=== PATIENT | male | born 1965 | race Caucasian/White ===

== ENCOUNTER 2016-11-22 14:41 | Emergency (ER) | payer OTHER ==
[2016-11-22 14:56] VITALS: BP 136/102
[2016-11-22] MEDS ORDERED: Sodium Chloride 0.9% 10 ML Syringe FLUSH PRN (15:11)
[2016-11-22] MEDS ORDERED: methylPREDNISolone Sodium Succinate 125 MG/2 ML SDV IVPUSH ONE (15:15)
[2016-11-22] MEDS ORDERED: Albuterol/Ipratropium 3.0-0.5 MG/3 ML Neb Soln NEB ONE (15:15)
[2016-11-22] MEDS ORDERED: Iopamidol 755 Mg/ML 100 ML Bottle IVPUSH ONE (15:26)
[2016-11-22] MEDS ORDERED: Sodium Chloride 0.9% 10 ML Syringe FLUSH ONE (15:26)
[2016-11-22] MEDS ORDERED: Sodium Chloride 0.9% 100 ML IV SCH (15:30)
--- NOTE | 2016-11-22 16:08 | EDM.PDOC ---
ED HPI GENERAL MEDICAL PROBLEM - General Chief Complaint: Respiratory Problem Stated Complaint[facility] Time Seen by Provider: 11/22/16 14:59 Source of Information: Reports: Patient, Provider History Limitations: Reports: No Limitations - History of Present Illness INITIAL COMMENTS - FREE TEXT/NARRATIVE: [facility] because he has had increased shortness of breath for the past month. It is worse with exertion. He has a productive cough at times of whitish sputum. He denies any chest pain and he has no edema or pain in his legs. He has no fever. He does smoke but he is down to 1 cigarette per day because of the shortness of breath. He does have COPD and CHF. He is on some lasix. Onset: Gradual Duration: Week(s): (4) Severity: Moderate Improves with: Reports: None Worsens with: Reports: Movement Context: Reports: Activity (makes it worse) Associated Symptoms: Reports: Cough, cough w sputum, Shortness of Breath. Denies: Chest Pain, Fever/Chills, Nausea/Vomiting - Related Data Allergies Allergy/AdvReac Type Severity Reaction Status Date / Time codeine Allergy Unknown Hyperactivi Verified 11/22/16 14:56 ty shellfish derived Allergy Unknown Hives Verified 11/22/16 14:56 Home Meds: Home Meds Carvedilol [Coreg] 12.5 mg PO BID 05/03/15 [History] Potassium Chloride [Klor-Con M20] 20 meq PO DAILY 05/03/15 [History] Albuterol [Proventil HFA] 2 puff INH Q4H #1 inhaler 05/14/15 [Rx] Furosemide [Lasix] 20 mg PO DAILY #30 tablet 05/14/15 [Rx] Prednisone [IJD: predniSONE] 40 mg PO WITHBREAKFAST #10 tab 11/22/16 [Rx] Past Medical History Respiratory History: Reports: Asthma - Past Surgical History Other GI Surgeries/Procedures: 6 inches of colon removed in 2013 Social & Family History - Tobacco Use Smoking Status *Q: Light Tobacco Smoker Years of Tobacco use: 40 Packs/Tins Daily: 0.1 Used Tobacco, but Quit: No Month Tobacco Last Used: 04/2014 Second Hand Smoke Exposure: No - Caffeine Use Caffeine Use: Reports: Soda - Alcohol Use Days Per Week of Alcohol Use: 0 Number of Drinks Per Day: 3 Total Drinks Per Week: 0 - Recreational Drug Use Recreational Drug Use: No ED ROS GENERAL - Review of Systems Review Of Systems: See Below Constitutional: Reports: No Symptoms HEENT: Reports: No Symptoms Respiratory: Reports: Shortness of Breath, Cough, Sputum Cardiovascular: Reports: No Symptoms Endocrine: Reports: No Symptoms GI/Abdominal: Reports: No Symptoms : Reports: No Symptoms Musculoskeletal: Reports: No Symptoms Skin: Reports: No Symptoms ED EXAM, GENERAL - Physical Exam Exam: See Below Exam Limited By: No Limitations General Appearance: Alert, No Apparent Distress Ears: Normal External Exam Nose: Normal Inspection Head: Atraumatic, Normocephalic Neck: Normal Inspection Respiratory/Chest: No Respiratory Distress, Decreased Breath Sounds Cardiovascular: Regular Rate, Rhythm, No Edema, No Murmur GI/Abdominal: Soft, Non-Tender, No Organomegaly, No Mass Back Exam: Normal Inspection Extremities: Normal Inspection EKG INTERPRETATION EKG Date: 11/22/16 Time: 15:32 Rhythm: NSR Rate (beats/min): 92 [place]: normal P-wave: present QRS: LBBB ST-T: normal QT: normal Course - Vital Signs Last Recorded V/S: Last Vital Signs Temp 97 F 11/22/16 14:49 Pulse 102 H 11/22/16 14:49 Resp 17 11/22/16 14:49 BP 136/102 H 11/22/16 14:49 Pulse Ox 99 11/22/16 15:31 - Orders/Labs/Meds Orders: Active Orders 24 hr Category Date Time Status Cardiac Monitoring [RC] . DIRECTED Care 11/22/16 15:11 Active EKG Documentation Completion [RC] STAT Care 11/22/16 15:13 Active Oxygen Therapy [RC] PRN Care 11/22/16 15:12 Active Peripheral IV Care [RC] . DIRECTED Care 11/22/16 15:13 Active RT Aerosol Therapy [RC] ASDIRECTED Care 11/22/16 15:15 Active Sodium Chloride 0.9% [Normal Saline] 1,000 ml Med 11/22/16 16:15 Active IV ASDIRECTED Sodium Chloride 0.9% [Normal Saline] 100 ml Med 11/22/16 15:30 Active IV ASDIRECTED Sodium Chloride 0.9% [Saline Flush] Med 11/22/16 15:11 Active 10 ml FLUSH ASDIRECTED PRN Peripheral IV Insertion Adult [OM.PC] Stat Oth 11/22/16 15:11 Ordered Medication Orders Sodium Chloride (Normal Saline) 100 mls @ 60 mls/hr IV ASDIRECTED REGINE Last Admin: 11/22/16 15:45 Dose: 60 mls/hr Sodium Chloride (Normal Saline) 1,000 mls @ 150 mls/hr IV ASDIRECTED REGINE Sodium Chloride (Saline Flush) 10 ml FLUSH ASDIRECTED PRN PRN Reason: Keep Vein Open Last Admin: 11/22/16 15:36 Dose: 10 ml Labs: Laboratory Tests 11/22/16 11/22/16 11/22/16 Range/Units 15:30 15:30 15:50 WBC 7.99 (4.23-9.07) K/mm3 RBC 4.36 L (4.63-6.08) M/mm3 Hgb 12.9 L (13.7-17.5) gm/L Hct 39.5 L (40.1-51.0) % MCV 90.6 (79.0-92.2) fl MCH 29.6 (25.7-32.2) pg MCHC 32.7 (32.2-35.5) g/dl RDW Std Deviation 48.7 H (35.1-43.9) fL Plt Count 344 H (163-337) K/mm3 MPV 9.0 L (9.4-12.3) fl Neut % (Auto) 68.4 H (34.0-67.9) % Lymph % (Auto) 19.4 L (21.8-53.1) % [place] % (Auto) 9.5 (5.3-12.2) % Eos % (Auto) 2.0 (0.8-7.0) Baso % (Auto) 0.6 (0.1-1.2) % Neut # (Auto) 5.46 H (1.78-5.38) K/mm3 Lymph # (Auto) 1.55 (1.32-3.57) K/mm3 [place] # (Auto) 0.76 (0.30-0.82) K/mm3 Eos # (Auto) 0.16 (0.04-0.54) K/mm3 Baso # (Auto) 0.05 (0.01-0.08) K/mm3 Manual Slide Review Abnormal smear Sodium 136 (136-145) mEq/L Potassium 3.0 L (3.5-5.1) mEq/L Chloride 98 (98-107) mEq/L Carbon Dioxide 26 (21-32) mEq/L Anion Gap 15.0 (5-15) BUN 31 H (7-18) mg/dL Creatinine 1.7 H (0.7-1.3) mg/dL Est Cr Clr Drug Dosing 48.06 mL/min Estimated GFR (MDRD) 43 (>60) mL/min BUN/Creatinine Ratio 18.2 H (14-18) Glucose 104 (74-106) mg/dL Calcium 8.6 (8.5-10.1) mg/dL Total Bilirubin 1.1 H (0.2-1.0) mg/dL AST 20 (15-37) U/L ALT 19 (16-63) U/L Alkaline Phosphatase 62 (46-116) U/L Troponin I 0.076 H* (0.00-0.056) ng/mL B-Natriuretic Peptide 1916 H (0-100) pg/mL Total Protein 7.6 (6.4-8.2) g/dl Albumin 3.8 (3.4-5.0) g/dl Globulin 3.8 gm/dL Albumin/Globulin Ratio 1.0 (1-2) Meds: Medications Generic Name Dose Route Start Last Admin Trade Name Freq PRN Reason Stop Dose Admin Sodium Chloride 100 mls @ 60 mls/hr 11/22/16 15:30 11/22/16 15:45 Normal Saline IV 60 mls/hr ASDIRECTED REGINE Administration Sodium Chloride 1,000 mls @ 150 mls/hr 11/22/16 16:15 Normal Saline IV ASDIRECTED REGINE Sodium Chloride 10 ml 11/22/16 15:11 11/22/16 15:36 Saline Flush FLUSH 10 ml ASDIRECTED PRN Administration Keep Vein Open Discontinued Medications Generic Name Dose Route Start Last Admin Trade Name Freq PRN Reason Stop Dose Admin Albuterol/Ipratropium 3 ml 11/22/16 15:15 11/22/16 15:30 Duoneb 3.0-0.5 Mg/3 Ml NEB 11/22/16 15:16 3 ml ONETIME ONE Administration Iopamidol 100 ml 05/15/17 15:26 11/22/16 15:45 Isovue-370 (76%) IVPUSH 11/22/16 15:27 100 ml ONETIME ONE Administration Methylprednisolone Sodium Succinate 125 mg 11/22/16 15:15 11/22/16 15:36 Solu-Medrol IVPUSH 11/22/16 15:16 125 mg ONETIME ONE Administration Sodium Chloride 10 ml 11/22/16 15:26 11/22/16 15:45 Saline Flush FLUSH 11/22/16 15:27 10 ml ONETIME ONE Administration - Re-Assessments/Exams Free Text/Narrative Re-Assessment/Exam: 11/22/16 17:04 I ordered an IV saline lock, O2 as needed, EKG, CT of his chest, labs, solu- medrol 125mg IV, and duoneb. His EKG shows a LBBB. That is consistent with the [facility] sent from the [facility]. His CBC is negative. His K was a little low at 3. His creatinine was elevated at 1.7. His troponin was elevated at 0.076 with an elevated BNP of 1916. His chest CT shows cardiomegaly, hazy ground glass appearance in both lungs possibly due to mild pulmonary vascular congestion. No findings of pulmonary embolism. Diffuse subpleural blebs on both sides of the chest which puts the patient at risk for future pneumothorax. His creatinine was high so I gave him a 500ml bolus to protect his kidneys. I called Dr Maher the elevator installer apprentice at [place] and talked with him. He was able to look up the patient. He says his EF is about 30% and we both agreed the elevated troponin was due to his CHF. The patient feels much better after the treatment and steroids. He is taking K at home for hypokalemia. Departure - Departure Time of Disposition: 17:15 Disposition: Home, Self-Care 01 Condition: good Clinical Impression: COPD exacerbation - Discharge Information Prescriptions: Prednisone [IJD: predniSONE] 40 mg PO WITHBREAKFAST #10 tab Referrals: Erika Frey DO [Primary Care Provider] - 1 Week Forms: ED Department Discharge Additional Instructions: Keep taking your potassium pills and using your inhaler. Take the prednisone daily for 5 days. Follow up with your doctor [facility] the [facility] and [facility]. Please return if you are worse. - My Orders Last 24 Hours: My Active Orders 11/22/16 15:11 Cardiac Monitoring [RC] . DIRECTED Sodium Chloride 0.9% [Saline Flush] 10 ml FLUSH ASDIRECTED PRN Peripheral IV Insertion Adult [OM.PC] Stat 11/22/16 15:12 Oxygen Therapy [RC] PRN 11/22/16 15:13 EKG Documentation Completion [RC] STAT Peripheral IV Care [RC] . DIRECTED 11/22/16 15:15 RT Aerosol Therapy [RC] ASDIRECTED 11/22/16 15:30 Sodium Chloride 0.9% [Normal Saline] 100 ml IV ASDIRECTED 11/22/16 16:15 Sodium Chloride 0.9% [Normal Saline] 1,000 ml IV ASDIRECTED - Assessment/Plan Last 24 Hours: My Active Orders 11/22/16 15:11 Cardiac Monitoring [RC] . DIRECTED Sodium Chloride 0.9% [Saline Flush] 10 ml FLUSH ASDIRECTED PRN Peripheral IV Insertion Adult [OM.PC] Stat 11/22/16 15:12 Oxygen Therapy [RC] PRN 11/22/16 15:13 EKG Documentation Completion [RC] STAT Peripheral IV Care [RC] . DIRECTED 11/22/16 15:15 RT Aerosol Therapy [RC] ASDIRECTED 11/22/16 15:30 Sodium Chloride 0.9% [Normal Saline] 100 ml IV ASDIRECTED 11/22/16 16:15 Sodium Chloride 0.9% [Normal Saline] 1,000 ml IV ASDIRECTED
[2016-11-22] MEDS ORDERED: Sodium Chloride 0.9% 1,000 ML IV SCH (16:15)
--- NOTE | 2016-11-22 16:27 | CT ---
CT chest Technique: Multiple axial sections through the chest were obtained. Intravenous contrast was utilized. Study has been performed as a pulmonary angiogram protocol. Findings: Pulmonary arteries are well-opacified. No filling defects are seen to indicate pulmonary embolism. Heart is enlarged. Mediastinum and hilar regions show no adenopathy or mass. Small portion of the visualized upper abdominal structures appear within normal limits. Subpleural blebs are seen within the right lung base. Subpleural blebs are seen diffusely within both upper lungs. Groundglass appearance is seen possibly representing mild pulmonary vascular congestion. Lungs otherwise are clear. Bone window settings shows mild degenerative endplate spurring within the spine. No pleural effusions or pneumothorax is seen. Impression: 1. Cardiomegaly. Hazy groundglass appearance in both lungs possibly due to mild pulmonary vascular congestion. 2. No findings of pulmonary embolism. 3. Diffuse subpleural blebs on both sides of the chest which puts the patient at risk for future pneumothorax. 4. No additional abnormality is appreciated. Diagnostic code #3
== END 2016-11-22 17:40 | disposition home or self-care (01) ==
LOC: JD.ED 14:41
DX: J44.1 Chronic obstructive pulmonary disease with (acute) exacerbation (principal); J45.909 Unspecified asthma, uncomplicated; F17.210 Nicotine dependence, cigarettes, uncomplicated; Z88.5 Allergy status to narcotic agent; Z91.013 Allergy to seafood; Z79.899 Other long term (current) drug therapy
CPT/HCPCS: 36415; 71275; 80053; 83880; 84484; 85025; 93005; 94664; 96361; 96374; 99285; J2930; J7030; J7040; J7050; Q9967; 99284

== ENCOUNTER 2020-08-11 13:03 | Inpatient (IN) | payer OTHER ==
[2020-08-11] MEDS: Sodium Chloride 0.9% 10 ML Syringe FLUSH PRN ×2 (13:20→13:56)
[2020-08-11] MEDS ORDERED: Sodium Chloride 0.9% 1,000 ML IV STA (13:24)
[2020-08-11] MEDS ORDERED: Ondansetron 4 MG/2 ML SDV IVPUSH ONE (13:24)
[2020-08-11] MEDS ORDERED: Sodium Chloride 0.9% 10 ML Syringe FLUSH PRN (13:34)
[2020-08-11] MEDS ORDERED: Iopamidol 612 MG/ML 100 ML Bottle IVPUSH ONE (13:34)
[2020-08-11] MEDS ORDERED: Sodium Chloride 0.9% 500 ML IV STA (14:09)
--- NOTE | 2020-08-11 14:16 | CT ---
CT abdomen and pelvis Technique: Multiple axial sections were obtained from above the dome of the diaphragm inferiorly to the pubic symphysis. Intravenous contrast was utilized. Delayed images were also obtained through the abdomen and pelvis. Reconstructed coronal and sagittal images were obtained. Comparison: No prior CT abdomen or pelvis exam is available. Findings: Heart is enlarged. Visualized lung bases show several small subpleural air cysts along the medial right lower lung. Liver contains no focal abnormality. Spleen size is normal. Adrenal glands show no discrete nodule. Gallbladder contains no calcified gallstones. Kidneys show no hydronephrosis or mass. There is slight inflammatory change being seen around the kidneys particularly on the left side. Uncertain if this is acute or old. Pancreas is within normal limits. Abdominal aorta shows atherosclerotic calcification with no aneurysm. No retroperitoneal adenopathy or mesenteric abnormalities are seen. No pelvic mass or adenopathy is identified. Appendix is seen which is normal in size. Minimal scattered diverticuli are seen with no inflammatory change of diverticulitis. There appears to be resection clips within the sigmoid colon Delayed images show contrast excretion from both kidneys into nondilated ureters and bladder. Bone window settings were reviewed which show severe disc space narrowing with posterior osteophytes at L5-S1. No acute osseous finding is appreciated. Impression: 1. Inflammatory change around both kidneys. Uncertain if this is old or acute. Please rule out any findings of infection within the kidneys. 2. Heart is enlarged. 3. Other findings as noted above which are believed to be incidental. Diagnostic code #3
--- NOTE | 2020-08-11 14:41 | EDM.PDOC ---
ED HPI GENERAL MEDICAL PROBLEM - General Chief Complaint: Abdominal Pain Stated Complaint: ABDOMINAL PAIN/VOMITING Time Seen by Provider: 08/11/20 13:11 Source of Information: Reports: Patient, RN Notes Reviewed History Limitations: Reports: No Limitations - History of Present Illness INITIAL COMMENTS - FREE TEXT/NARRATIVE: Patient is a 54 year old male presenting to the ER with c/o a 1 week hx of nausea, vomiting, diarrhea and abdominal cramping. He has been able to keep down very little fluid without vomiting. He states that has is having 1-2 episodes of diarrhea per hour. He c/o intermittent generalized abdominal cramping, mostly with intake of fluids. He also feels SOB. He denies fever, chills, chest pain, or back pain over the last week. He has not been able to take his daily medications including his Lasix 40mg BID and heart medications for that last week d/t the vomiting. Abdomen Pain Score (Numeric/FACES): 6 - Related Data Allergies Allergy/AdvReac Type Severity Reaction Status Date / Time shellfish derived Allergy Unknown Hives Verified 08/11/20 18:12 codeine AdvReac Unknown Hyperactivi Verified 08/11/20 18:12 ty Home Meds: Home Meds Albuterol Sulfate [Proair Hfa] 2 puff INH TID PRN 07/02/18 [History] Furosemide [Lasix] 40 mg PO BID 07/02/18 [History] Lisinopril 5 mg PO BID 07/02/18 [History] Potassium Chloride [K-Tab ER] 20 meq PO DAILY 07/02/18 [History] atorvaSTATin [Lipitor] 10 mg PO BEDTIME 07/02/18 [History] Digoxin 250 mcg PO DAILY 08/11/20 [History] Metoprolol Succinate 25 mg PO BID 08/11/20 [History] Past Medical History Cardiovascular History: Reports: Automatic Implantable Cardioverter Defibrillators, Heart Failure, SOB on Exertion Respiratory History: Reports: Asthma, COPD, SOB - Past Surgical History Other GI Surgeries/Procedures: 6 inches of colon removed in 2013 Social & Family History - Tobacco Use Tobacco Use Status *Q: Current Every Day Tobacco User Years of Tobacco use: 40 Packs/Tins Daily: 0.1 - Caffeine Use Caffeine Use: Reports: None - Recreational Drug Use Recreational Drug Use: No ED ROS GENERAL - Review of Systems Review Of Systems: See Below Constitutional: Reports: Chills, Fatigue, Decreased Appetite. Denies: Fever HEENT: Reports: No Symptoms Respiratory: Reports: Shortness of Breath. Denies: Cough Cardiovascular: Reports: No Symptoms. Denies: Chest Pain, Lightheadedness Endocrine: Reports: No Symptoms GI/Abdominal: Reports: Abdominal Pain, Diarrhea, Decreased Appetite, Nausea, Vomiting : Reports: No Symptoms Musculoskeletal: Reports: No Symptoms Skin: Reports: No Symptoms Neurological: Reports: No Symptoms Psychiatric: Reports: No Symptoms Hematologic/Lymphatic: Reports: No Symptoms Immunologic: Reports: No Symptoms ED EXAM, GI/ABD - Physical Exam Exam: See Below Exam Limited By: No Limitations General Appearance: Alert, WD/WN, Mild Distress Respiratory/Chest: No Respiratory Distress, Normal Breath Sounds, No Accessory Muscle Use, Chest Non-Tender, Respiratory Distress, Rales (bilaterally. More significant throughout the left). No: Wheezing Cardiovascular: Normal Peripheral Pulses, Regular Rate, Rhythm, No Edema, No Gallop, No JVD, No Murmur, No Rub GI/Abdominal Exam: Normal Bowel Sounds, Soft, No Organomegaly, No Distention, No Abnormal Bruit, No Mass, Pelvis Stable, Tender (mild generalized tenderness) Neurological: Alert, Oriented, CN II-XII Intact, Normal Cognition, Normal Gait, Normal Reflexes, No Motor/Sensory Deficits Psychiatric: Normal Affect, Normal Mood Skin Exam: Warm, Dry, Intact, Normal Color, No Rash #1 Interpretation EKG Date: 08/11/20 Time: 13:33 Rhythm: NSR Rate (Beats/Min): 107 [place]: Normal P-Wave: Present QRS: LBBB ST-T: Normal QT: Normal Comparison: No Change Course - Vital Signs Last Recorded V/S: Last Vital Signs Temp 98.4 F 08/13/20 19:12 Pulse 78 08/13/20 20:45 Resp 16 08/13/20 19:12 BP 121/71 08/13/20 20:45 Pulse Ox 94 L 08/13/20 19:12 - Orders/Labs/Meds Orders: Medication Orders Acetaminophen (Tylenol) 650 mg PO Q4H PRN PRN Reason: Pain (Mild 1-3)/fever Last Admin: 08/12/20 20:09 Dose: 650 mg Documented by: JAM Albuterol (Proventil Hfa) 0 gm INH TID PRN PRN Reason: Shortness of Breath Cholecalciferol (Vitamin D3) 10,000 unit PO DAILY [facility] Last Admin: 08/13/20 11:10 Dose: 10,000 unit Documented by: Admin: 08/12/20 14:47 Dose: 10,000 unit Documented by: SURAJ Digoxin (Lanoxin) 250 mcg PO DAILY@1200 [facility] Last Admin: 08/13/20 11:34 Dose: 250 mcg Documented by: Admin: 08/12/20 11:39 Dose: 250 mcg Documented by: SURAJ Enoxaparin Sodium (Lovenox) 40 mg SUBCUT DAILY [facility] Last Admin: 08/13/20 11:09 Dose: 40 mg Documented by: Admin: 08/12/20 09:52 Dose: 40 mg Documented by: SURAJ Furosemide (Lasix) 40 mg PO BIDDIURETIC [facility] Hydromorphone HCl (Dilaudid) 0.5 mg IVPUSH Q2H PRN PRN Reason: Pain (severe 7-10) Last Admin: 08/12/20 09:59 Dose: 0.5 mg Documented by: Admin: 08/11/20 21:52 Dose: 0.5 mg Documented by: EBONIE Metoprolol Succinate (Toprol Xl) 25 mg PO BID [facility] Last Admin: 08/13/20 20:45 Dose: 25 mg Documented by: Admin: 08/13/20 11:10 Dose: 25 mg Documented by: Admin: 08/12/20 20:08 Dose: 25 mg Documented by: Admin: 08/12/20 09:52 Dose: 25 mg Documented by: Admin: 08/11/20 21:42 Dose: 25 mg Documented by: EBONIE Ondansetron HCl (Zofran) 4 mg IV Q4H PRN PRN Reason: Nausea/Vomiting Last Admin: 08/12/20 18:26 Dose: 4 mg Documented by: Admin: 08/12/20 14:34 Dose: 4 mg Documented by: Admin: 08/12/20 09:45 Dose: 4 mg Documented by: Admin: 08/11/20 21:57 Dose: 4 mg Documented by: EBONIE Oxycodone HCl (Oxycodone) 5 mg PO Q4H PRN PRN Reason: Abdominal Pain Last Admin: 08/12/20 20:08 Dose: 5 mg Documented by: AJM Simvastatin (Zocor) 10 mg PO BEDTIME [facility] Last Admin: 08/13/20 20:45 Dose: 10 mg Documented by: Admin: 08/12/20 20:08 Dose: 10 mg Documented by: Admin: 08/11/20 21:42 Dose: 10 mg Documented by: EBONIE Sodium Chloride (Saline Flush) 10 ml FLUSH ASDIRECTED PRN PRN Reason: Keep Vein Open Last Admin: 08/11/20 13:56 Dose: 10 ml Documented by: Admin: 08/11/20 13:20 Dose: 10 ml Documented by: SHAWN Labs: Laboratory Tests 08/11/20 08/11/20 08/11/20 Range/Units 13:15 13:15 13:15 WBC 11.72 H (4.23-9.07) K/mm3 RBC 4.21 L (4.63-6.08) M/mm3 Hgb 12.0 L D (13.7-17.5) gm/dl Hct 38.8 L (40.1-51.0) % MCV 92.2 (79.0-92.2) fl MCH 28.5 (25.7-32.2) pg MCHC 30.9 L (32.2-35.5) g/dl RDW Std Deviation 50.4 H (35.1-43.9) fL Plt Count 337 (163-337) K/mm3 MPV 9.5 (9.4-12.3) fl Neut % (Auto) 74.0 H (34.0-67.9) % Lymph % (Auto) 17.2 L (21.8-53.1) % [place] % (Auto) 7.5 (5.3-12.2) % Eos % (Auto) 0.9 (0.8-7.0) Baso % (Auto) 0.2 (0.1-1.2) % Neut # (Auto) 8.68 H (1.78-5.38) K/mm3 Lymph # (Auto) 2.02 (1.32-3.57) K/mm3 [place] # (Auto) 0.88 H (0.30-0.82) K/mm3 Eos # (Auto) 0.10 (0.04-0.54) K/mm3 Baso # (Auto) 0.02 (0.01-0.08) K/mm3 Manual Slide Review Normal smear Sodium 135 L (136-145) mEq/L Potassium 4.7 (3.5-5.1) mEq/L Chloride 99 (98-107) mEq/L Carbon Dioxide 23 D (21-32) mEq/L Anion Gap 17.7 H (5-15) BUN 29 H (7-18) mg/dL Creatinine 1.5 H (0.7-1.3) mg/dL Est Cr Clr Drug Dosing 52.64 mL/min Estimated GFR (MDRD) 49 (>60) mL/min BUN/Creatinine Ratio 19.3 H (14-18) Glucose 120 H (74-106) mg/dL Lactic Acid (0.4-2.0) mmol/L Calcium 8.7 (8.5-10.1) mg/dL Magnesium 2.2 (1.8-2.4) mg/dl Total Bilirubin 1.8 H (0.2-1.0) mg/dL AST 273 H (15-37) U/L ALT 657 H (16-63) U/L Alkaline Phosphatase 121 H (46-116) U/L Troponin I 0.277 H* (0.00-0.056) ng/mL C-Reactive Protein 4.4 H* (<1.0) mg/dL NT-Pro-B Natriuret Pep (0-125) pg/mL Total Protein 6.9 (6.4-8.2) g/dl Albumin 3.4 (3.4-5.0) g/dl Globulin 3.5 gm/dL Albumin/Globulin Ratio 1.0 (1-2) Lipase 123 (73-393) U/L Procalcitonin ng/mL Urine Color (Yellow) Urine Appearance (Clear) Urine pH (5.0-8.0) Ur Specific [place] (1.005-1.030) Urine Protein (Negative) Urine Glucose (UA) (Negative) Urine Ketones (Negative) Urine Occult Blood (Negative) Urine Nitrite (Negative) Urine Bilirubin (Negative) Urine Urobilinogen (0.2-1.0) Ur Leukocyte Esterase (Negative) Urine RBC (0-5) /hpf Urine WBC (0-5) /hpf Ur Squamous Epith Cells (0-5) /hpf Urine Bacteria (FEW) /hpf Urine Mucus (FEW) /hpf SARS-CoV-2 RNA (BRIDGETT) (NEGATIVE) 08/11/20 08/11/20 08/11/20 Range/Units 13:15 13:15 14:36 WBC (4.23-9.07) K/mm3 RBC (4.63-6.08) M/mm3 Hgb (13.7-17.5) gm/dl Hct (40.1-51.0) % MCV (79.0-92.2) fl MCH (25.7-32.2) pg MCHC (32.2-35.5) g/dl RDW Std Deviation (35.1-43.9) fL Plt Count (163-337) K/mm3 MPV (9.4-12.3) fl Neut % (Auto) (34.0-67.9) % Lymph % (Auto) (21.8-53.1) % Marion % (Auto) (5.3-12.2) % Eos % (Auto) (0.8-7.0) Baso % (Auto) (0.1-1.2) % Neut # (Auto) (1.78-5.38) K/mm3 Lymph # (Auto) (1.32-3.57) K/mm3 [place] # (Auto) (0.30-0.82) K/mm3 Eos # (Auto) (0.04-0.54) K/mm3 Baso # (Auto) (0.01-0.08) K/mm3 Manual Slide Review Sodium (136-145) mEq/L Potassium (3.5-5.1) mEq/L Chloride (98-107) mEq/L Carbon Dioxide (21-32) mEq/L Anion Gap (5-15) BUN (7-18) mg/dL Creatinine (0.7-1.3) mg/dL Est Cr Clr Drug Dosing mL/min Estimated GFR (MDRD) (>60) mL/min BUN/Creatinine Ratio (14-18) Glucose (74-106) mg/dL Lactic Acid 2.2 H* (0.4-2.0) mmol/L Calcium (8.5-10.1) mg/dL Magnesium (1.8-2.4) mg/dl Total Bilirubin (0.2-1.0) mg/dL AST (15-37) U/L ALT (16-63) U/L Alkaline Phosphatase (46-116) U/L Troponin I (0.00-0.056) ng/mL C-Reactive Protein (<1.0) mg/dL NT-Pro-B Natriuret Pep 34740 H (0-125) pg/mL Total Protein (6.4-8.2) g/dl Albumin (3.4-5.0) g/dl Globulin gm/dL Albumin/Globulin Ratio (1-2) Lipase (73-393) U/L Procalcitonin 0.32 H ng/mL Urine Color (Yellow) Urine Appearance (Clear) Urine pH (5.0-8.0) Ur Specific [place] (1.005-1.030) Urine Protein (Negative) Urine Glucose (UA) (Negative) Urine Ketones (Negative) Urine Occult Blood (Negative) Urine Nitrite (Negative) Urine Bilirubin (Negative) Urine Urobilinogen (0.2-1.0) Ur Leukocyte Esterase (Negative) Urine RBC (0-5) /hpf Urine WBC (0-5) /hpf Ur Squamous Epith Cells (0-5) /hpf Urine Bacteria (FEW) /hpf Urine Mucus (FEW) /hpf SARS-CoV-2 RNA ([place]GET[place]) (NEGATIVE) 08/11/20 08/11/20 08/11/20 Range/Units 14:56 15:30 15:50 WBC (4.23-9.07) K/mm3 RBC (4.63-6.08) M/mm3 Hgb (13.7-17.5) gm/dl Hct (40.1-51.0) % MCV (79.0-92.2) fl MCH (25.7-32.2) pg MCHC (32.2-35.5) g/dl RDW Std Deviation (35.1-43.9) fL Plt Count (163-337) K/mm3 MPV (9.4-12.3) fl Neut % (Auto) (34.0-67.9) % Lymph % (Auto) (21.8-53.1) % [place] % (Auto) (5.3-12.2) % Eos % (Auto) (0.8-7.0) Baso % (Auto) (0.1-1.2) % Neut # (Auto) (1.78-5.38) K/mm3 Lymph # (Auto) (1.32-3.57) K/mm3 [place] # (Auto) (0.30-0.82) K/mm3 Eos # (Auto) (0.04-0.54) K/mm3 Baso # (Auto) (0.01-0.08) K/mm3 Manual Slide Review Sodium (136-145) mEq/L Potassium (3.5-5.1) mEq/L Chloride (98-107) mEq/L Carbon Dioxide (21-32) mEq/L Anion Gap (5-15) BUN (7-18) mg/dL Creatinine (0.7-1.3) mg/dL Est Cr Clr Drug Dosing mL/min Estimated GFR (MDRD) (>60) mL/min BUN/Creatinine Ratio (14-18) Glucose (74-106) mg/dL Lactic Acid (0.4-2.0) mmol/L Calcium (8.5-10.1) mg/dL Magnesium (1.8-2.4) mg/dl Total Bilirubin (0.2-1.0) mg/dL AST (15-37) U/L ALT (16-63) U/L Alkaline Phosphatase (46-116) U/L Troponin I 0.274 H* (0.00-0.056) ng/mL C-Reactive Protein (<1.0) mg/dL NT-Pro-B Natriuret Pep (0-125) pg/mL Total Protein (6.4-8.2) g/dl Albumin (3.4-5.0) g/dl Globulin gm/dL Albumin/Globulin Ratio (1-2) Lipase (73-393) U/L Procalcitonin ng/mL Urine Color Yellow (Yellow) Urine Appearance Clear (Clear) Urine pH 5.5 (5.0-8.0) Ur Specific [place] 1.015 (1.005-1.030) Urine Protein Negative (Negative) Urine Glucose (UA) Negative (Negative) Urine Ketones Negative (Negative) Urine Occult Blood Negative (Negative) Urine Nitrite Negative (Negative) Urine Bilirubin Negative (Negative) Urine Urobilinogen 0.2 (0.2-1.0) Ur Leukocyte Esterase Negative (Negative) Urine RBC 0-5 (0-5) /hpf Urine WBC 0-5 (0-5) /hpf Ur Squamous Epith Cells 0-5 (0-5) /hpf Urine Bacteria Few (FEW) /hpf Urine Mucus Few (FEW) /hpf SARS-CoV-2 RNA (BR[place]GETT) Negative (NEGATIVE) Meds: Medications Generic Name Dose Route Start Last Admin Trade Name Freq PRN Reason Stop Dose Admin Acetaminophen 650 mg 08/11/20 19:31 08/12/20 20:09 Tylenol PO 650 mg Q4H PRN Administration Pain (Mild 1-3)/fever Albuterol 0 gm 08/11/20 19:28 Proventil Hfa INH TID PRN Shortness of Breath Cholecalciferol 10,000 unit 08/12/20 14:45 08/13/20 11:10 Vitamin D3 PO 10,000 unit DAILY [facility] Administration Digoxin 250 mcg 08/12/20 12:00 08/13/20 11:34 Lanoxin PO 250 mcg DAILY@1200 [facility] Administration Enoxaparin Sodium 40 mg 08/12/20 09:00 08/13/20 11:09 Lovenox SUBCUT 40 mg DAILY [facility] Administration Furosemide 40 mg 08/14/20 07:00 Lasix PO BIDDIURETIC [facility] Hydromorphone HCl 0.5 mg 08/11/20 19:31 08/12/20 09:59 Dilaudid IVPUSH 0.5 mg Q2H PRN Administration Pain (severe 7-10) Metoprolol Succinate 25 mg 08/11/20 21:00 08/13/20 20:45 Toprol Xl PO 25 mg BID [facility] Administration Ondansetron HCl 4 mg 08/11/20 19:31 08/12/20 18:26 Zofran IV 4 mg Q4H PRN Administration Nausea/Vomiting Oxycodone HCl 5 mg 08/12/20 10:42 08/12/20 20:08 Oxycodone PO 5 mg Q4H PRN Administration Abdominal Pain Simvastatin 10 mg 08/11/20 21:00 08/13/20 20:45 Zocor PO 10 mg BEDTIME [facility] Administration Sodium Chloride 10 ml 08/11/20 13:16 08/11/20 13:56 Saline Flush FLUSH 10 ml ASDIRECTED PRN Administration Keep Vein Open Discontinued Medications Generic Name Dose Route Start Last Admin Trade Name Freq PRN Reason Stop Dose Admin Albuterol/Ipratropium 3 ml 08/11/20 15:13 08/11/20 15:22 Duoneb 3.0-0.5 Mg/3 Ml NEB 08/11/20 15:14 3 ml ONETIME ONE Administration Furosemide 40 mg 08/12/20 15:45 Lasix IVPUSH 08/12/20 15:46 ONETIME ONE Furosemide 40 mg 08/11/20 15:45 08/11/20 16:13 Lasix IVPUSH 08/11/20 15:46 40 mg ONETIME ONE Administration Furosemide 40 mg 08/12/20 06:00 08/13/20 15:31 Lasix IVPUSH 08/13/20 16:00 Not Given BIDDIURETIC [facility] Hydromorphone HCl 0.5 mg 08/11/20 15:20 08/11/20 15:36 Dilaudid IVPUSH 08/11/20 15:21 0.5 mg ONETIME ONE Administration Hydromorphone HCl 0.5 mg 08/11/20 16:52 08/11/20 16:58 Dilaudid IVPUSH 08/11/20 16:53 0.5 mg ONETIME ONE Administration Sodium Chloride 1,000 mls @ 100 mls/hr 08/11/20 13:24 08/11/20 13:56 Normal Saline IV 08/11/20 23:23 100 mls/hr NOW STA Administration Sodium Chloride 500 mls @ 999 mls/hr 08/11/20 14:09 08/11/20 15:47 Normal Saline IV 08/11/20 14:39 Not Given NOW STA Piperacillin Sod/Tazobactam 100 mls @ 200 mls/hr 08/11/20 16:40 08/11/20 17:00 Sod 4.5 gm/ Sodium Chloride IV 08/11/20 17:09 200 mls/hr ONETIME ONE Administration Piperacillin Sod/Tazobactam 100 mls @ 25 mls/hr 08/12/20 11:00 08/13/20 11:34 Sod 4.5 gm/ Sodium Chloride IV 25 mls/hr Q8H [facility] Administration Potassium Chloride 10 meq/ 100 mls @ 100 mls/hr 08/13/20 08:00 08/13/20 11:42 Premix IV 08/13/20 11:59 Not Given Q1H [facility] Iopamidol 100 ml 08/11/20 13:34 08/11/20 14:01 Isovue-300 (61%) IVPUSH 08/11/20 13:35 100 ml ONETIME ONE Administration Ondansetron HCl 4 mg 08/11/20 13:24 08/11/20 13:56 Zofran IVPUSH 08/11/20 13:25 4 mg ONETIME ONE Administration Piperacillin Sod/Tazobactam Sod Confirm 08/13/20 04:21 08/13/20 04:30 Piperacil-Tazobact Administered 08/13/20 04:22 Not Given Dose 4.5 gm .ROUTE .STK-MED ONE Potassium Chloride 40 meq 08/13/20 15:30 08/13/20 15:25 Klor-Con M20 PO 08/13/20 15:31 40 meq ONETIME ONE Administration Sodium Chloride 10 ml 08/11/20 13:34 08/11/20 14:01 Saline Flush FLUSH 10 ml ONETIME PRN Administration IV FLUSH - Re-Assessments/Exams Free Text/Narrative Re-Assessment/Exam: 08/11/20 14:10 Hematology was significant for WBC slightly elevated 11.72, hemoglobin low at 12.0, sodium 135, anion gap 17.7, BUN 29, creatinine 1.5, total bili 1.8, AST 273, ALT 657, alkaline phosphatase 121, troponin 0 0.277, CRP 4.4, proBNP 15,785. Urinalysis is pending. CT scan of the abdomen pelvis shows inflammatory changes around both kidneys. Uncertain if this is old or acute. Please rule out any findings of infection within the kidneys. Chest x-ray shows findings compatible with CHF and mild interstitial pulmonary edema. I have added on a lactic acid and blood cultures x 2. Given that the patient is an acute on chronic heart failure, the 30 ml/kg IV fluid bolus would not be a ppropriate at this time. He is not hypotensive. Last blood pressure was 127/92. I have ordered a 500 mill bolus of normal saline then to continue at 100 mils per hour. 08/11/20 15:20 I was notified by nursing staff of the lactic acid of 2.2. This qualifies the patient for severe sepsis criteria with a time zero of 1519. As above, fluid bolus would not be appropriate for patient as he is in acute on chronic congestive heart failure. Results of urinalysis are pending. Antibiotics have not been ordered at this point as we do not have a source of infection. 08/11/20 15:40 Patient continues to complain of shortness of breath as well as intermittent right upper quadrant abdominal pain. I have ordered a DuoNeb treatment and Dilaudid 0.5 mg IV. I have also ordered an ultrasound of the right upper quadrant abdomen and a repeat troponin. Urinalysis is back and is negative for any signs of infection, indicating that the inflammation on the kidneys is likely chronic. Called and spoke with the courtroom deputy or calendar clerk on-call at [facility], Dr. Garcia. He feels that the elevated troponin is related to his congestive heart failure. Recommend stopping the IV fluids and giving Lasix 40 mg IV and admit for diuresis. He recommends a repeat echocardiogram. Once results of the right upper quadrant ultrasound are available, I will call and speak with the hospitalist regarding admission. 08/11/20 16:47 Ultrasound of the right upper quadrant shows gallbladder wall thickened with pericholecystic fluid. Minimal sludge with no definitive gallstones being seen. No biliary duct dilatation is seen. Findings are suspicious for acute cholecystitis probable acalculus. Patient's breathing effort has improved significantly since the breathing treatment and Lasix was given. Case discussed with the surgeon on-call, Dr. Esparza. He recommend the patient be started on Zosyn and be admitted for diuresis and optimization for surgery. He recommended the hospitalist consult him. Case discussed with Dr. Stevenson. He is excepted the patient for admission. Departure - Departure Time of Disposition: 16:47 Disposition: Admitted As Inpatient 66 Condition: Good Clinical Impression: Elevated troponin, Cholecystitis CHF exacerbation Qualifiers: Heart failure type: unspecified Qualified Code(s): I50.9 - Heart failure, unspecified Abdominal pain Qualifiers: Abdominal location: right upper quadrant Qualified Code(s): R10.11 - Right upper quadrant pain - Discharge Information Sepsis Event Note (ED) - Evaluation Sepsis Screening Result: No Definite Risk
--- NOTE | 2020-08-11 15:11 | CR ---
Chest: PA and lateral views of the chest were obtained. Prior chest x-ray of 07/02/18. Heart is enlarged. Pacemaker or AICD is noted. Pulmonary vessels are congested. Slight Mable B-lines are noted compatible with interstitial pulmonary edema. Impression: 1. Findings compatible with CHF with mild interstitial pulmonary edema. Diagnostic code #3
[2020-08-11] MEDS ORDERED: Albuterol/Ipratropium 3.0-0.5 MG/3 ML Neb Soln NEB ONE (15:13)
[2020-08-11] MEDS ORDERED: HYDROmorphone 0.5 MG/0.5 ML Syringe IVPUSH ONE ×2 (15:20→16:52)
[2020-08-11] MEDS ORDERED: Furosemide 40 MG/4 ML VIAL IVPUSH ONE (15:45)
--- NOTE | 2020-08-11 16:37 | US ---
Limited abdominal ultrasound: Multiple real-time images of the upper right abdomen were obtained. Findings: Gallbladder wall is thickened. There is some para-cholecystic fluid being seen. I do not see a definite gallstone. There appears to be some minimal sludge noted. Common bile duct measures normal. Liver shows no focal abnormality. Proximal aorta measures 2.8 cm. Pancreas is incompletely seen. Visualized portions of the pancreas show no discrete abnormality. Right kidney shows a hypoechoic area within the midpole which I believe is artifact. Right kidney has a measurement of 8.9 cm. No hydronephrosis is seen. Inferior vena cava is patent. Main portal vein shows normal hepatopedal flow. Impression: 1. Gallbladder wall is thickened with pericholecystic fluid. Minimal sludge with no definite gallstones being seen. No biliary duct dilatation is seen. Findings are suspicious for acute cholecystitis probably acalculous. 2. No additional abnormality is appreciated on right upper quadrant abdominal ultrasound. Diagnostic code #5
[2020-08-11] MEDS ORDERED: Piperacillin/Tazobactam 4.5 GM in Sodium Chloride 0.9% 100 ML IV ONE (16:40)
--- NOTE | 2020-08-11 19:00 | PCM.HP.2 ---
H&P History of Present Illness - General Date of Service: 08/11/20 Admit Problem/Dx: Admission Diagnosis/Problem Admission Diagnosis/Problem Cholecystitis - History of Present Illness Initial Comments - Free Text/Narative: 54-year-old male with 1 week history of nausea, vomiting, and abdominal cramping presents to the emergency department with increasing weakness. Patient states that he has had diarrhea 4-5 times a day for the last 4 days. He has not taken any of his heart medication, patient has a history of CHF, for the last 7 days. Patient denies any fever, chills, chest pain, or back pain. In the emergency department patient was found to have only a mildly elevated WBC of 11.7 but did have significant elevation in his liver enzymes including a bilirubin of 1.8, AST of 273, ALT 657, alkaline phosphatase of 161. Fortunately his albumin was at the lower limit of normal at 3.4. CT of the abdomen showed inflammatory changes around both kidneys. Uncertain if this is old or acute. Heart was enl arged. Otherwise nothing acute. Ultrasound was done because of the elevated liver enzymes and findings were consistent with acalculus cholecystitis. The gallbladder was thickened with pericholecystic fluid. Minimal sludge with no definite gallstones being seen. Dr. Esparza in surgery was consulted and he recommended patient be admitted on Zosyn with plans on doing a cholecystectomy in the future. Unfortunately, because the patient has significant heart disease and CHF from an abdominal infection 4 years ago according to the patient, now has fluid overload and exacerbation of CHF secondary to not being able to take his cardiac medications. Patient has not been keeping down fluids, but without his medications his proBNP is up to 15,785. Troponin I was elevated at 0.277. His radio presenter was contacted by the emergency department provider who stated we needed to stop the fluids because of his heart failure and start him on Lasix. Patient's lactic acid also in the emergency department was only 2.2. Chest x- ray did show findings compatible with mild CHF. Abdomen Pain Score (Numeric/FACES): 6 - Related Data Allergies/Adverse Reactions: Allergies Allergy/AdvReac Type Severity Reaction Status Date / Time shellfish derived Allergy Unknown Hives Verified 08/11/20 18:12 codeine AdvReac Unknown Hyperactivi Verified 08/11/20 18:12 ty Home Medications: Home Meds Albuterol Sulfate [Proair Hfa] 2 puff INH TID PRN 07/02/18 [History] Furosemide [Lasix] 40 mg PO BID 07/02/18 [History] Lisinopril 5 mg PO BID 07/02/18 [History] Potassium Chloride [K-Tab ER] 20 meq PO DAILY 07/02/18 [History] atorvaSTATin [Lipitor] 10 mg PO BEDTIME 07/02/18 [History] Digoxin 250 mcg PO DAILY 08/11/20 [History] Metoprolol Succinate 25 mg PO BID 08/11/20 [History] Past Medical History Cardiovascular History: Reports: Automatic Implantable Cardioverter Defibrillators, Heart Failure, SOB on Exertion Respiratory History: Reports: Asthma, COPD, SOB - Infectious Disease History Infectious Disease History: Reports: Chicken Pox, Measles, Mumps - Past Surgical History Other GI Surgeries/Procedures: 6 inches of colon removed in 2013 Social & Family History - Family History Family Medical History: No Pertinent Family History - Tobacco Use Tobacco Use Status *Q: Current Every Day Tobacco User Years of Tobacco use: 40 Packs/Tins Daily: 0.1 Tobacco Use Comment: smokes 1 cig/day and hasn't smoked in the last week. - Caffeine Use Caffeine Use: Reports: Soda - Recreational Drug Use Recreational Drug Use: No H&P Review of Systems - Review of Systems: Review Of Systems: Comprehensive ROS is negative, except as noted in HPI. Exam - Exam Exam: See Below - Vital Signs Vital Signs: Last Vital Signs Temp 97.9 F 08/11/20 17:32 Pulse 99 08/11/20 17:32 Resp 18 08/11/20 17:32 BP 127/72 08/11/20 17:32 Pulse Ox 93 L 08/11/20 17:32 Weight: 172 lb 8 oz - Exam Quality Assessment: No: Supplemental Oxygen General: Alert, Oriented, 4 HEENT: Conjunctiva Clear, Mucosa Moist & [place], Normal Nasal Septum Lungs: Normal Respiratory Effort, Rales (Bibasilar right worse than left) Cardiovascular: Regular Rate, Regular Rhythm GI/Abdominal Exam: Normal Bowel Sounds, Soft, Non-Tender, No Organomegaly, No Distention, No Abnormal Bruit, No Mass Back Exam: Normal Inspection Extremities: Normal Inspection, Normal Range of Motion, Non-Tender, No Pedal Edema, Normal Capillary Refill Peripheral Pulses: 1+: Posterior Tibial (L), Posterior Tibial (R), Dorsalis Pedis (L), Dorsalis Pedis (R) Skin: Warm, Dry, Intact Neuro Extensive - Mental Status: Alert, Oriented x3, Normal Mood/Affect, Normal Cognition, Memory Intact Psychiatric: Alert, Normal Affect, Normal Mood - Patient Data Lab Results Last 24 hrs: Laboratory Results - last 24 hr 08/11/20 08/11/20 08/11/20 Range/Units 13:15 13:15 13:15 WBC 11.72 H (4.23-9.07) K/mm3 RBC 4.21 L (4.63-6.08) M/mm3 Hgb 12.0 L D (13.7-17.5) gm/dl Hct 38.8 L (40.1-51.0) % MCV 92.2 (79.0-92.2) fl MCH 28.5 (25.7-32.2) pg MCHC 30.9 L (32.2-35.5) g/dl RDW Std Deviation 50.4 H (35.1-43.9) fL Plt Count 337 (163-337) K/mm3 MPV 9.5 (9.4-12.3) fl Neut % (Auto) 74.0 H (34.0-67.9) % Lymph % (Auto) 17.2 L (21.8-53.1) % [place] % (Auto) 7.5 (5.3-12.2) % Eos % (Auto) 0.9 (0.8-7.0) Baso % (Auto) 0.2 (0.1-1.2) % Neut # (Auto) 8.68 H (1.78-5.38) K/mm3 Lymph # (Auto) 2.02 (1.32-3.57) K/mm3 [place] # (Auto) 0.88 H (0.30-0.82) K/mm3 Eos # (Auto) 0.10 (0.04-0.54) K/mm3 Baso # (Auto) 0.02 (0.01-0.08) K/mm3 Manual Slide Review Normal smear Sodium 135 L (136-145) mEq/L Potassium 4.7 (3.5-5.1) mEq/L Chloride 99 (98-107) mEq/L Carbon Dioxide 23 D (21-32) mEq/L Anion Gap 17.7 H (5-15) BUN 29 H (7-18) mg/dL Creatinine 1.5 H (0.7-1.3) mg/dL Est Cr Clr Drug Dosing 52.64 mL/min Estimated GFR (MDRD) 49 (>60) mL/min BUN/Creatinine Ratio 19.3 H (14-18) Glucose 120 H (74-106) mg/dL Lactic Acid (0.4-2.0) mmol/L Calcium 8.7 (8.5-10.1) mg/dL Magnesium 2.2 (1.8-2.4) mg/dl Total Bilirubin 1.8 H (0.2-1.0) mg/dL AST 273 H (15-37) U/L ALT 657 H (16-63) U/L Alkaline Phosphatase 121 H (46-116) U/L Troponin I 0.277 H* (0.00-0.056) ng/mL C-Reactive Protein 4.4 H* (<1.0) mg/dL NT-Pro-B Natriuret Pep (0-125) pg/mL Total Protein 6.9 (6.4-8.2) g/dl Albumin 3.4 (3.4-5.0) g/dl Globulin 3.5 gm/dL Albumin/Globulin Ratio 1.0 (1-2) Lipase 123 (73-393) U/L Urine Color (Yellow) Urine Appearance (Clear) Urine pH (5.0-8.0) Ur Specific [place] (1.005-1.030) Urine Protein (Negative) Urine Glucose (UA) (Negative) Urine Ketones (Negative) Urine Occult Blood (Negative) Urine Nitrite (Negative) Urine Bilirubin (Negative) Urine Urobilinogen (0.2-1.0) Ur Leukocyte Esterase (Negative) Urine RBC (0-5) /hpf Urine WBC (0-5) /hpf Ur Squamous Epith Cells (0-5) /hpf Urine Bacteria (FEW) /hpf Urine Mucus (FEW) /hpf SARS-CoV-2 RNA (BRIDGETT) (NEGATIVE) 08/11/20 08/11/20 08/11/20 Range/Units 13:15 14:36 14:56 WBC (4.23-9.07) K/mm3 RBC (4.63-6.08) M/mm3 Hgb (13.7-17.5) gm/dl Hct (40.1-51.0) % MCV (79.0-92.2) fl MCH (25.7-32.2) pg MCHC (32.2-35.5) g/dl RDW Std Deviation (35.1-43.9) fL Plt Count (163-337) K/mm3 MPV (9.4-12.3) fl Neut % (Auto) (34.0-67.9) % Lymph % (Auto) (21.8-53.1) % [place] % (Auto) (5.3-12.2) % Eos % (Auto) (0.8-7.0) Baso % (Auto) (0.1-1.2) % Neut # (Auto) (1.78-5.38) K/mm3 Lymph # (Auto) (1.32-3.57) K/mm3 [place] # (Auto) (0.30-0.82) K/mm3 Eos # (Auto) (0.04-0.54) K/mm3 Baso # (Auto) (0.01-0.08) K/mm3 Manual Slide Review Sodium (136-145) mEq/L Potassium (3.5-5.1) mEq/L Chloride (98-107) mEq/L Carbon Dioxide (21-32) mEq/L Anion Gap (5-15) BUN (7-18) mg/dL Creatinine (0.7-1.3) mg/dL Est Cr Clr Drug Dosing mL/min Estimated GFR (MDRD) (>60) mL/min BUN/Creatinine Ratio (14-18) Glucose (74-106) mg/dL Lactic Acid 2.2 H* (0.4-2.0) mmol/L Calcium (8.5-10.1) mg/dL Magnesium (1.8-2.4) mg/dl Total Bilirubin (0.2-1.0) mg/dL AST (15-37) U/L ALT (16-63) U/L Alkaline Phosphatase (46-116) U/L Troponin I (0.00-0.056) ng/mL C-Reactive Protein (<1.0) mg/dL NT-Pro-B Natriuret Pep 16797 H (0-125) pg/mL Total Protein (6.4-8.2) g/dl Albumin (3.4-5.0) g/dl Globulin gm/dL Albumin/Globulin Ratio (1-2) Lipase (73-393) U/L Urine Color Yellow (Yellow) Urine Appearance Clear (Clear) Urine pH 5.5 (5.0-8.0) Ur Specific [place] 1.015 (1.005-1.030) Urine Protein Negative (Negative) Urine Glucose (UA) Negative (Negative) Urine Ketones Negative (Negative) Urine Occult Blood Negative (Negative) Urine Nitrite Negative (Negative) Urine Bilirubin Negative (Negative) Urine Urobilinogen 0.2 (0.2-1.0) Ur Leukocyte Esterase Negative (Negative) Urine RBC 0-5 (0-5) /hpf Urine WBC 0-5 (0-5) /hpf Ur Squamous Epith Cells 0-5 (0-5) /hpf Urine Bacteria Few (FEW) /hpf Urine Mucus Few (FEW) /hpf SARS-CoV-2 RNA (BRIDGETT) (NEGATIVE) 08/11/20 08/11/20 Range/Units 15:30 15:50 WBC (4.23-9.07) K/mm3 RBC (4.63-6.08) M/mm3 Hgb (13.7-17.5) gm/dl Hct (40.1-51.0) % MCV (79.0-92.2) fl MCH (25.7-32.2) pg MCHC (32.2-35.5) g/dl RDW Std Deviation (35.1-43.9) fL Plt Count (163-337) K/mm3 MPV (9.4-12.3) fl Neut % (Auto) (34.0-67.9) % Lymph % (Auto) (21.8-53.1) % [place] % (Auto) (5.3-12.2) % Eos % (Auto) (0.8-7.0) Baso % (Auto) (0.1-1.2) % Neut # (Auto) (1.78-5.38) K/mm3 Lymph # (Auto) (1.32-3.57) K/mm3 [place] # (Auto) (0.30-0.82) K/mm3 Eos # (Auto) (0.04-0.54) K/mm3 Baso # (Auto) (0.01-0.08) K/mm3 Manual Slide Review Sodium (136-145) mEq/L Potassium (3.5-5.1) mEq/L Chloride (98-107) mEq/L Carbon Dioxide (21-32) mEq/L Anion Gap (5-15) BUN (7-18) mg/dL Creatinine (0.7-1.3) mg/dL Est Cr Clr Drug Dosing mL/min Estimated GFR (MDRD) (>60) mL/min BUN/Creatinine Ratio (14-18) Glucose (74-106) mg/dL Lactic Acid (0.4-2.0) mmol/L Calcium (8.5-10.1) mg/dL Magnesium (1.8-2.4) mg/dl Total Bilirubin (0.2-1.0) mg/dL AST (15-37) U/L ALT (16-63) U/L Alkaline Phosphatase (46-116) U/L Troponin I 0.274 H* (0.00-0.056) ng/mL C-Reactive Protein (<1.0) mg/dL NT-Pro-B Natriuret Pep (0-125) pg/mL Total Protein (6.4-8.2) g/dl Albumin (3.4-5.0) g/dl Globulin gm/dL Albumin/Globulin Ratio (1-2) Lipase (73-393) U/L Urine Color (Yellow) Urine Appearance (Clear) Urine pH (5.0-8.0) Ur Specific [place] (1.005-1.030) Urine Protein (Negative) Urine Glucose (UA) (Negative) Urine Ketones (Negative) Urine Occult Blood (Negative) Urine Nitrite (Negative) Urine Bilirubin (Negative) Urine Urobilinogen (0.2-1.0) Ur Leukocyte Esterase (Negative) Urine RBC (0-5) /hpf Urine WBC (0-5) /hpf Ur Squamous Epith Cells (0-5) /hpf Urine Bacteria (FEW) /hpf Urine Mucus (FEW) /hpf SARS-CoV-2 RNA (BRIDGETT) Negative (NEGATIVE) Result Diagrams: 08/11/20 13:15 08/11/20 13:15 #1 Interpretation EKG Date: 08/11/20 Rhythm: NSR Rate (Beats/Min): 107 QRS: LBBB Sepsis Event Note - Evaluation Sepsis Screening Result: No Definite Risk - Focused Exam Vital Signs: Vital Signs Temp Temp Pulse Pulse Resp BP BP 08/11/20 17:32 97.9 F 99 18 127/72 08/11/20 16:19 100 19 142/87 H 08/11/20 15:22 08/11/20 13:11 97.7 F 113 H 24 H 148/101 H Pulse Ox Pulse Ox 08/11/20 17:32 93 L 08/11/20 16:19 97 08/11/20 15:22 95 08/11/20 13:11 100 - Problem List (1) Acute acalculous cholecystitis SNOMED Code(s): 00789632 ICD Code: K81.0 - ACUTE CHOLECYSTITIS Status: Acute Current Visit: Yes (2) CHF exacerbation SNOMED Code(s): 574622301, 60631677694201 ICD Code: I50.9 - HEART FAILURE, UNSPECIFIED Status: Acute Current Visit: No Problem List Initiated/Reviewed/Updated: Yes Orders Last 24hrs: Active Orders 24 hr Category Date Time Status Patient Status [ADT] Routine ADT 08/11/20 16:51 Active Insert [place] Catheter [Insert Urinary Catheter] [OM.PC] Care 08/11/20 15:09 Ordered Stat RT Aerosol Therapy [RC] ASDIRECTED Care 08/11/20 15:13 Active Urinary Catheter Assessment [RC] ASDIRECTED Care 08/11/20 15:10 Active Clear Liquid Diet [DIET] Diet 08/12/20 Breakfast Active Fluid Restriction [DIET] Diet 08/12/20 Breakfast Active CULTURE BLOOD [BC] Stat Lab 08/11/20 14:36 Received CULTURE BLOOD [BC] Stat Lab 08/11/20 14:41 Received Sodium Chloride 0.9% [Saline Flush] Med 08/11/20 13:16 Active 10 ml FLUSH ASDIRECTED PRN Sodium Chloride 0.9% [Saline Flush] Med 08/11/20 13:34 Active 10 ml FLUSH ONETIME PRN Blood Culture x2 Reflex Set [OM.PC] Stat Oth 08/11/20 14:21 Ordered Peripheral IV Insertion Adult [OM.PC] Stat Oth 08/11/20 13:16 Ordered Resuscitation Status Routine Resus Stat 08/11/20 18:11 Ordered Medication Orders Sodium Chloride (Saline Flush) 10 ml FLUSH ASDIRECTED PRN PRN Reason: Keep Vein Open Last Admin: 08/11/20 13:56 Dose: 10 ml Documented by: Admin: 08/11/20 13:20 Dose: 10 ml Documented by: SHAWN Sodium Chloride (Saline Flush) 10 ml FLUSH ONETIME PRN PRN Reason: IV FLUSH Last Admin: 08/11/20 14:01 Dose: 10 ml Documented by: DARIO Assessment/Plan Comment:: Assessment 54-year-old male with history of CHF, COPD, asthma, automatic implantable cardioverter defibrillator, partial colectomy in 2013 secondary to unknown infected cyst, presents the emergency department with 7-day history of nausea, vomiting, and diarrhea. Patient has been unable to take his medications, therefore he is in acute exacerbation of heart failure. Patient was diagnosed with acalculous cholecystitis and Dr. Esparza recommended admission with plans on cholecystectomy in the future. Exacerbation of CHF * BNP 15,785 and troponin of 0.27 * Elevated troponin likely secondary to strain from worsening CHF and renal insufficiency. Unlikely that this is true injury from ischemic disease. * Unable to take his Lasix, lisinopril, metoprolol, or digoxin over the last 7 days * Given Lasix 40 mg IV in the emergency department Acalculous cholecystitis * Ultrasound consistent with cholecystitis but no gallstones noted * Dr. Esparza in surgery consulted * 7 days of nausea and vomiting and 4 days of diarrhea * Able to tolerate clear liquids tonight * Possible cholecystectomy * Cholecystitis is primarily an inflammatory process, but secondary infection of the gallbladder can occur as a result of bile stasis. * No significant sign of acute infection Acute on chronic renal insufficiency * Unknown baseline GFR * BUN 29, creatinine 1.5, estimated GFR 49 * Given fluid bolus in emergency department, but radio presenter Dr. Garcia recommends fluid restriction and Lasix Anemia * Hemoglobin is 12 * Likely mixed but most likely predominantly anemia of chronic disease Plan * Admit to medical floor * Consult Dr. Esparza * Treat nausea and vomiting so he can take oral medications * IV Lasix 40 mg twice daily * Follow CBC, CMP, mag, and C-reactive protein * Will get anemia panel in the morning * Add procalcitonin * Dr. Esparza recommended Zosyn secondary to the increased risk of infection * Clear liquid diet overnight and then asked Dr. Esparza's opinion on diet * VTE prophylaxis with Lovenox * CODE STATUS: Full code - Mortality Measure Prognosis:: Poor
[2020-08-11] MEDS ORDERED: Albuterol 6.7 GM Inhaler INH PRN (19:28)
[2020-08-11] MEDS ORDERED: Acetaminophen 325 MG Tab PO PRN (19:31)
[2020-08-11] MEDS: Metoprolol Succinate 25 MG Tab.ER PO SCH (21:42)
[2020-08-11] MEDS: Simvastatin 10 MG Tab PO SCH (21:42)
[2020-08-11] MEDS: HYDROmorphone 0.5 MG/0.5 ML Syringe IVPUSH PRN (21:52)
[2020-08-11] MEDS: Ondansetron 4 MG/2 ML SDV IV PRN (21:57)
[2020-08-12] MEDS: Furosemide 40 MG/4 ML VIAL IVPUSH SCH ×2 (06:12→14:34)
[2020-08-12] MEDS: Ondansetron 4 MG/2 ML SDV IV PRN ×3 (09:45→18:26)
[2020-08-12] MEDS: Metoprolol Succinate 25 MG Tab.ER PO SCH ×2 (09:52→20:08)
[2020-08-12] MEDS: Enoxaparin 40 MG/0.4 ML Syringe SUBCUT SCH (09:52)
[2020-08-12] MEDS: HYDROmorphone 0.5 MG/0.5 ML Syringe IVPUSH PRN (09:59)
[2020-08-12] MEDS ORDERED: oxyCODONE 5 MG Tab PO PRN (10:42)
--- NOTE | 2020-08-12 10:49 | PCM.PN ---
- General Info Date of Service: 08/12/20 Admission Dx/Problem (Free Text): Admission Diagnosis/Problem Admission Diagnosis/Problem Cholecystitis Subjective Update: Patient is having right upper quadrant pain this morning. He ate an egg omelette with cheese and ham and he developed right upper quadrant pain following eating that. He insists that it was because he ate it too fast. Patient otherwise is doing fairly well. I reviewed his records from [place] and his weight in June when seen cardiology was 78 kg. This morning his weight is 74 kg which is down 78.24 kg on admission. He has not had a bowel movement since admission. He has a slightly negative fluid balance of -360 and he is on an 1800 mL/day fluid restriction. Also on reviewing his old records his creatinine was 1.16 with an estimated GFR of 66 in March of last year. Echocardiogram done on 10/09/2019 showed an ejection fraction of 30% with global hypokinesis. Patient had echocardiogram done this morning which showed an ejection fraction of 15 to 20% with severely decreased left ventricular systolic function. The right ventricular systolic pressure is moderately elevated at 53.4 and the inferior vena cava is dilated with respiratory size variation less than 50%, consistent with elevated right atrial pressure. - Review of Systems General: Reports: No Symptoms HEENT: Reports: No Symptoms Pulmonary: Reports: No Symptoms Gastrointestinal: Reports: Abdominal Pain, Nausea Neurological: Reports: No Symptoms Psychiatric: Reports: No Symptoms - Patient Data Vitals - Most Recent: Last Vital Signs Temp 98.1 F 08/12/20 07:44 Pulse 84 08/12/20 09:52 Resp 20 08/12/20 07:44 BP 111/72 08/12/20 09:52 Pulse Ox 94 L 08/12/20 07:44 Weight - Most Recent: 163 lb 9.6 oz I&O - Last 24 Hours: Intake & Output 08/11/20 08/12/20 08/12/20 22:59 06:59 14:59 Intake Total 640 400 120 Output Total 1900 Balance 640 -1500 120 Lab Results Last 24 Hours: Laboratory Results - last 24 hr 08/11/20 08/11/20 08/11/20 Range/Units 13:15 13:15 13:15 WBC 11.72 H (4.23-9.07) K/mm3 RBC 4.21 L (4.63-6.08) M/mm3 Hgb 12.0 L D (13.7-17.5) gm/dl Hct 38.8 L (40.1-51.0) % MCV 92.2 (79.0-92.2) fl MCH 28.5 (25.7-32.2) pg MCHC 30.9 L (32.2-35.5) g/dl RDW Std Deviation 50.4 H (35.1-43.9) fL Plt Count 337 (163-337) K/mm3 MPV 9.5 (9.4-12.3) fl Neut % (Auto) 74.0 H (34.0-67.9) % Lymph % (Auto) 17.2 L (21.8-53.1) % [place] % (Auto) 7.5 (5.3-12.2) % Eos % (Auto) 0.9 (0.8-7.0) Baso % (Auto) 0.2 (0.1-1.2) % Neut # (Auto) 8.68 H (1.78-5.38) K/mm3 Lymph # (Auto) 2.02 (1.32-3.57) K/mm3 [place] # (Auto) 0.88 H (0.30-0.82) K/mm3 Eos # (Auto) 0.10 (0.04-0.54) K/mm3 Baso # (Auto) 0.02 (0.01-0.08) K/mm3 Manual Slide Review Normal smear Sodium 135 L (136-145) mEq/L Potassium 4.7 (3.5-5.1) mEq/L Chloride 99 (98-107) mEq/L Carbon Dioxide 23 D (21-32) mEq/L Anion Gap 17.7 H (5-15) BUN 29 H (7-18) mg/dL Creatinine 1.5 H (0.7-1.3) mg/dL Est Cr Clr Drug Dosing 52.64 mL/min Estimated GFR (MDRD) 49 (>60) mL/min BUN/Creatinine Ratio 19.3 H (14-18) Glucose 120 H (74-106) mg/dL Lactic Acid (0.4-2.0) mmol/L Calcium 8.7 (8.5-10.1) mg/dL Magnesium 2.2 (1.8-2.4) mg/dl Iron (65-175) ug/dL TIBC (100-400) ug/dL % Saturation (20-55) % Transferrin (202-364) mg/dL Total Bilirubin 1.8 H (0.2-1.0) mg/dL AST 273 H (15-37) U/L ALT 657 H (16-63) U/L Alkaline Phosphatase 121 H (46-116) U/L Troponin I 0.277 H* (0.00-0.056) ng/mL C-Reactive Protein 4.4 H* (<1.0) mg/dL NT-Pro-B Natriuret Pep (0-125) pg/mL Total Protein 6.9 (6.4-8.2) g/dl Albumin 3.4 (3.4-5.0) g/dl Globulin 3.5 gm/dL Albumin/Globulin Ratio 1.0 (1-2) Lipase 123 (73-393) U/L Vitamin B12 (193-986) pg/ml Vitamin D 25-Hydroxy (30.0-100.0) ng/ml Folate (8.6-58.9) ng/mL Urine Color (Yellow) Urine Appearance (Clear) Urine pH (5.0-8.0) Ur Specific [place] (1.005-1.030) Urine Protein (Negative) Urine Glucose (UA) (Negative) Urine Ketones (Negative) Urine Occult Blood (Negative) Urine Nitrite (Negative) Urine Bilirubin (Negative) Urine Urobilinogen (0.2-1.0) Ur Leukocyte Esterase (Negative) Urine RBC (0-5) /hpf Urine WBC (0-5) /hpf Ur Squamous Epith Cells (0-5) /hpf Urine Bacteria (FEW) /hpf Urine Mucus (FEW) /hpf SARS-CoV-2 RNA (BRIDGETT) (NEGATIVE) 08/11/20 08/11/20 08/11/20 Range/Units 13:15 14:36 14:56 WBC (4.23-9.07) K/mm3 RBC (4.63-6.08) M/mm3 Hgb (13.7-17.5) gm/dl Hct (40.1-51.0) % MCV (79.0-92.2) fl MCH (25.7-32.2) pg MCHC (32.2-35.5) g/dl RDW Std Deviation (35.1-43.9) fL Plt Count (163-337) K/mm3 MPV (9.4-12.3) fl Neut % (Auto) (34.0-67.9) % Lymph % (Auto) (21.8-53.1) % [place] % (Auto) (5.3-12.2) % Eos % (Auto) (0.8-7.0) Baso % (Auto) (0.1-1.2) % Neut # (Auto) (1.78-5.38) K/mm3 Lymph # (Auto) (1.32-3.57) K/mm3 [place] # (Auto) (0.30-0.82) K/mm3 Eos # (Auto) (0.04-0.54) K/mm3 Baso # (Auto) (0.01-0.08) K/mm3 Manual Slide Review Sodium (136-145) mEq/L Potassium (3.5-5.1) mEq/L Chloride (98-107) mEq/L Carbon Dioxide (21-32) mEq/L Anion Gap (5-15) BUN (7-18) mg/dL Creatinine (0.7-1.3) mg/dL Est Cr Clr Drug Dosing mL/min Estimated GFR (MDRD) (>60) mL/min BUN/Creatinine Ratio (14-18) Glucose (74-106) mg/dL Lactic Acid 2.2 H* (0.4-2.0) mmol/L Calcium (8.5-10.1) mg/dL Magnesium (1.8-2.4) mg/dl Iron (65-175) ug/dL TIBC (100-400) ug/dL % Saturation (20-55) % Transferrin (202-364) mg/dL Total Bilirubin (0.2-1.0) mg/dL AST (15-37) U/L ALT (16-63) U/L Alkaline Phosphatase (46-116) U/L Troponin I (0.00-0.056) ng/mL C-Reactive Protein (<1.0) mg/dL NT-Pro-B Natriuret Pep 28277 H (0-125) pg/mL Total Protein (6.4-8.2) g/dl Albumin (3.4-5.0) g/dl Globulin gm/dL Albumin/Globulin Ratio (1-2) Lipase (73-393) U/L Vitamin B12 (193-986) pg/ml Vitamin D 25-Hydroxy (30.0-100.0) ng/ml Folate (8.6-58.9) ng/mL Urine Color Yellow (Yellow) Urine Appearance Clear (Clear) Urine pH 5.5 (5.0-8.0) Ur Specific [place] 1.015 (1.005-1.030) Urine Protein Negative (Negative) Urine Glucose (UA) Negative (Negative) Urine Ketones Negative (Negative) Urine Occult Blood Negative (Negative) Urine Nitrite Negative (Negative) Urine Bilirubin Negative (Negative) Urine Urobilinogen 0.2 (0.2-1.0) Ur Leukocyte Esterase Negative (Negative) Urine RBC 0-5 (0-5) /hpf Urine WBC 0-5 (0-5) /hpf Ur Squamous Epith Cells 0-5 (0-5) /hpf Urine Bacteria Few (FEW) /hpf Urine Mucus Few (FEW) /hpf SARS-CoV-2 RNA (BRIDGETT) (NEGATIVE) 08/11/20 08/11/20 08/12/20 Range/Units 15:30 15:50 05:56 WBC 9.22 H (4.23-9.07) K/mm3 RBC 4.01 L (4.63-6.08) M/mm3 Hgb 11.4 L (13.7-17.5) gm/dl Hct 37.6 L (40.1-51.0) % MCV 93.8 H (79.0-92.2) fl MCH 28.4 (25.7-32.2) pg MCHC 30.3 L (32.2-35.5) g/dl RDW Std Deviation 52.6 H (35.1-43.9) fL Plt Count 303 (163-337) K/mm3 MPV 9.3 L (9.4-12.3) fl Neut % (Auto) 70.8 H (34.0-67.9) % Lymph % (Auto) 18.1 L (21.8-53.1) % [place] % (Auto) 9.8 (5.3-12.2) % Eos % (Auto) 0.9 (0.8-7.0) Baso % (Auto) 0.2 (0.1-1.2) % Neut # (Auto) 6.53 H (1.78-5.38) K/mm3 Lymph # (Auto) 1.67 (1.32-3.57) K/mm3 [place] # (Auto) 0.90 H (0.30-0.82) K/mm3 Eos # (Auto) 0.08 (0.04-0.54) K/mm3 Baso # (Auto) 0.02 (0.01-0.08) K/mm3 Manual Slide Review Sodium (136-145) mEq/L Potassium (3.5-5.1) mEq/L Chloride (98-107) mEq/L Carbon Dioxide (21-32) mEq/L Anion Gap (5-15) BUN (7-18) mg/dL Creatinine (0.7-1.3) mg/dL Est Cr Clr Drug Dosing mL/min Estimated GFR (MDRD) (>60) mL/min BUN/Creatinine Ratio (14-18) Glucose (74-106) mg/dL Lactic Acid (0.4-2.0) mmol/L Calcium (8.5-10.1) mg/dL Magnesium (1.8-2.4) mg/dl Iron (65-175) ug/dL TIBC (100-400) ug/dL % Saturation (20-55) % Transferrin (202-364) mg/dL Total Bilirubin (0.2-1.0) mg/dL AST (15-37) U/L ALT (16-63) U/L Alkaline Phosphatase (46-116) U/L Troponin I 0.274 H* (0.00-0.056) ng/mL C-Reactive Protein (<1.0) mg/dL NT-Pro-B Natriuret Pep (0-125) pg/mL Total Protein (6.4-8.2) g/dl Albumin (3.4-5.0) g/dl Globulin gm/dL Albumin/Globulin Ratio (1-2) Lipase (73-393) U/L Vitamin B12 (193-986) pg/ml Vitamin D 25-Hydroxy (30.0-100.0) ng/ml Folate (8.6-58.9) ng/mL Urine Color (Yellow) Urine Appearance (Clear) Urine pH (5.0-8.0) Ur Specific [place] (1.005-1.030) Urine Protein (Negative) Urine Glucose (UA) (Negative) Urine Ketones (Negative) Urine Occult Blood (Negative) Urine Nitrite (Negative) Urine Bilirubin (Negative) Urine Urobilinogen (0.2-1.0) Ur Leukocyte Esterase (Negative) Urine RBC (0-5) /hpf Urine WBC (0-5) /hpf Ur Squamous Epith Cells (0-5) /hpf Urine Bacteria (FEW) /hpf Urine Mucus (FEW) /hpf SARS-CoV-2 RNA (BRIDGETT) Negative (NEGATIVE) 08/12/20 08/12/20 08/12/20 Range/Units 05:56 05:56 05:56 WBC (4.23-9.07) K/mm3 RBC (4.63-6.08) M/mm3 Hgb (13.7-17.5) gm/dl Hct (40.1-51.0) % MCV (79.0-92.2) fl MCH (25.7-32.2) pg MCHC (32.2-35.5) g/dl RDW Std Deviation (35.1-43.9) fL Plt Count (163-337) K/mm3 MPV (9.4-12.3) fl Neut % (Auto) (34.0-67.9) % Lymph % (Auto) (21.8-53.1) % [place] % (Auto) (5.3-12.2) % Eos % (Auto) (0.8-7.0) Baso % (Auto) (0.1-1.2) % Neut # (Auto) (1.78-5.38) K/mm3 Lymph # (Auto) (1.32-3.57) K/mm3 [place] # (Auto) (0.30-0.82) K/mm3 Eos # (Auto) (0.04-0.54) K/mm3 Baso # (Auto) (0.01-0.08) K/mm3 Manual Slide Review Sodium 138 (136-145) mEq/L Potassium 4.2 (3.5-5.1) mEq/L Chloride 100 (98-107) mEq/L Carbon Dioxide 26 (21-32) mEq/L Anion Gap 16.2 H (5-15) BUN 33 H (7-18) mg/dL Creatinine 1.7 H (0.7-1.3) mg/dL Est Cr Clr Drug Dosing 46.44 mL/min Estimated GFR (MDRD) 42 (>60) mL/min BUN/Creatinine Ratio 19.4 H (14-18) Glucose 83 (74-106) mg/dL Lactic Acid (0.4-2.0) mmol/L Calcium 8.0 L (8.5-10.1) mg/dL Magnesium 2.2 (1.8-2.4) mg/dl Iron 42 L (65-175) ug/dL TIBC 286 (100-400) ug/dL % Saturation 15 L (20-55) % Transferrin 229 (202-364) mg/dL Total Bilirubin 1.3 H (0.2-1.0) mg/dL AST 245 H (15-37) U/L ALT 617 H (16-63) U/L Alkaline Phosphatase 95 (46-116) U/L Troponin I (0.00-0.056) ng/mL C-Reactive Protein 4.2 H* (<1.0) mg/dL NT-Pro-B Natriuret Pep (0-125) pg/mL Total Protein 6.1 L (6.4-8.2) g/dl Albumin 3.1 L (3.4-5.0) g/dl Globulin 3.0 gm/dL Albumin/Globulin Ratio 1.0 (1-2) Lipase (73-393) U/L Vitamin B12 900 (193-986) pg/ml Vitamin D 25-Hydroxy 16.3 L (30.0-100.0) ng/ml Folate 15.9 (8.6-58.9) ng/mL Urine Color (Yellow) Urine Appearance (Clear) Urine pH (5.0-8.0) Ur Specific [place] (1.005-1.030) Urine Protein (Negative) Urine Glucose (UA) (Negative) Urine Ketones (Negative) Urine Occult Blood (Negative) Urine Nitrite (Negative) Urine Bilirubin (Negative) Urine Urobilinogen (0.2-1.0) Ur Leukocyte Esterase (Negative) Urine RBC (0-5) /hpf Urine WBC (0-5) /hpf Ur Squamous Epith Cells (0-5) /hpf Urine Bacteria (FEW) /hpf Urine Mucus (FEW) /hpf SARS-CoV-2 RNA ([place]GETT) (NEGATIVE) Med Orders - Current: Current Medications Acetaminophen (Tylenol) 650 mg PO Q4H PRN PRN Reason: Pain (Mild 1-3)/fever Albuterol (Proventil Hfa) 0 gm INH TID PRN PRN Reason: Shortness of Breath Digoxin (Lanoxin) 250 mcg PO DAILY@1200 REGINE Enoxaparin Sodium (Lovenox) 40 mg SUBCUT DAILY [facility] Last Admin: 08/12/20 09:52 Dose: 40 mg Documented by: Furosemide (Lasix) 40 mg IVPUSH BIDDIURETIC [facility] Last Admin: 08/12/20 06:12 Dose: 40 mg Documented by: Hydromorphone HCl (Dilaudid) 0.5 mg IVPUSH Q2H PRN PRN Reason: Pain (severe 7-10) Last Admin: 08/12/20 09:59 Dose: 0.5 mg Documented by: Piperacillin Sod/Tazobactam (Sod 4.5 gm/ Sodium Chloride) 100 mls @ 25 mls/hr IV Q8H [facility] Metoprolol Succinate (Toprol Xl) 25 mg PO BID [facility] Last Admin: 08/12/20 09:52 Dose: 25 mg Documented by: Ondansetron HCl (Zofran) 4 mg IV Q4H PRN PRN Reason: Nausea/Vomiting Last Admin: 08/12/20 09:45 Dose: 4 mg Documented by: Oxycodone HCl (Oxycodone) 5 mg PO Q4H PRN PRN Reason: Abdominal Pain Simvastatin (Zocor) 10 mg PO BEDTIME [facility] Last Admin: 08/11/20 21:42 Dose: 10 mg Documented by: Sodium Chloride (Saline Flush) 10 ml FLUSH ASDIRECTED PRN PRN Reason: Keep Vein Open Last Admin: 08/11/20 13:56 Dose: 10 ml Documented by: Sodium Chloride (Saline Flush) 10 ml FLUSH ONETIME PRN PRN Reason: IV FLUSH Last Admin: 08/11/20 14:01 Dose: 10 ml Documented by: Discontinued Medications Albuterol/Ipratropium (Duoneb 3.0-0.5 Mg/3 Ml) 3 ml NEB ONETIME ONE Stop: 08/11/20 15:14 Last Admin: 08/11/20 15:22 Dose: 3 ml Documented by: Furosemide (Lasix) 40 mg IVPUSH ONETIME ONE Stop: 08/12/20 15:46 Furosemide (Lasix) 40 mg IVPUSH ONETIME ONE Stop: 08/11/20 15:46 Last Admin: 08/11/20 16:13 Dose: 40 mg Documented by: Hydromorphone HCl (Dilaudid) 0.5 mg IVPUSH ONETIME ONE Stop: 08/11/20 15:21 Last Admin: 08/11/20 15:36 Dose: 0.5 mg Documented by: Hydromorphone HCl (Dilaudid) 0.5 mg IVPUSH ONETIME ONE Stop: 08/11/20 16:53 Last Admin: 08/11/20 16:58 Dose: 0.5 mg Documented by: Sodium Chloride (Normal Saline) 1,000 mls @ 100 mls/hr IV NOW STA Stop: 08/11/20 23:23 Last Admin: 08/11/20 13:56 Dose: 100 mls/hr Documented by: Sodium Chloride (Normal Saline) 500 mls @ 999 mls/hr IV NOW STA Stop: 08/11/20 14:39 Last Admin: 08/11/20 15:47 Dose: Not Given Documented by: Piperacillin Sod/Tazobactam (Sod 4.5 gm/ Sodium Chloride) 100 mls @ 200 mls/hr IV ONETIME ONE Stop: 08/11/20 17:09 Last Admin: 08/11/20 17:00 Dose: 200 mls/hr Documented by: Iopamidol (Isovue-300 (61%)) 100 ml IVPUSH ONETIME ONE Stop: 08/11/20 13:35 Last Admin: 08/11/20 14:01 Dose: 100 ml Documented by: Ondansetron HCl (Zofran) 4 mg IVPUSH ONETIME ONE Stop: 08/11/20 13:25 Last Admin: 08/11/20 13:56 Dose: 4 mg Documented by: - Exam Quality Assessment: No: Supplemental Oxygen General: Alert, Oriented HEENT: Pupils Equal, Mucous Membr. Moist/[place]ck: Supple Lungs: Normal Respiratory Effort, Decreased Breath Sounds, Crackles (Bibasilar) Cardiovascular: Regular Rate, Regular Rhythm Extremities: Normal Inspection, No Pedal Edema, Normal Capillary Refill Psy/Mental Status: Alert, Normal Affect, Normal Mood Sepsis Event Note - Evaluation Sepsis Screening Result: No Definite Risk - Focused Exam Vital Signs: Vital Signs Temp Pulse Resp BP Pulse Ox 08/12/20 09:52 84 111/72 08/12/20 07:44 98.1 F 87 20 122/85 94 L 08/12/20 03:05 98.1 F 85 16 127/85 92 L 08/11/20 23:33 98.2 F 90 20 107/90 92 L - Problem List & Annotations (1) Acute acalculous cholecystitis SNOMED Code(s): 37212645 Code(s): K81.0 - ACUTE CHOLECYSTITIS Status: Acute Current Visit: Yes (2) CHF exacerbation SNOMED Code(s): 514198850, 29619546137068 Code(s): I50.9 - HEART FAILURE, UNSPECIFIED Status: Acute Current Visit: No - Problem List Review Problem List Initiated/Reviewed/Updated: Yes - My Orders Last 24 Hours: My Active Orders 08/11/20 13:15 PROCALCITONIN [REF] Routine 08/11/20 18:11 Resuscitation Status Routine 08/11/20 19:28 Notify Provider Consults [RC] ASDIRECTED Consult to Physician [CONS] Routine Albuterol [Proventil HFA] 0 gm INH TID PRN 08/11/20 19:29 RT Post Treatment Assessment [RC] Click to Edit RT Pre-Treatment Assessment [RC] Click to Edit 08/11/20 19:31 Oxygen Therapy [RC] PRN Up ad Lanny [RC] ASDIRECTED VTE/DVT Education [RC] BID Vital Signs [RC] Q4HR Acetaminophen [TylenoL] 650 mg PO Q4H PRN HYDROmorphone [Dilaudid] 0.5 mg IVPUSH Q2H PRN Ondansetron [Zofran] 4 mg IV Q4H PRN 08/11/20 21:00 Metoprolol Succinate [Toprol XL] 25 mg PO BID Simvastatin [Zocor] 10 mg PO BEDTIME 08/12/20 06:00 Furosemide [Lasix] 40 mg IVPUSH BIDDIURETIC 08/12/20 Breakfast Clear Liquid Diet [DIET] Fluid Restriction [DIET] 08/12/20 08:07 Communication Order [RC] 08/12/20 09:00 Enoxaparin [Lovenox] 40 mg SUBCUT DAILY 08/12/20 10:33 Consult to Software Program Manager [CONS] Routine 08/12/20 10:42 oxyCODONE 5 mg PO Q4H PRN 08/12/20 Lunch Regular Diet [DIET] Piperacillin/Tazobactam [Piperacil-Tazobact] 4.5 gm Sodium Chloride 0.9% [Normal Saline] 100 ml IV Q8H 08/12/20 12:00 Digoxin [Lanoxin] 250 mcg PO DAILY@1200 08/12/20 Dinner NPO After Midnight [Nothing per Oral After Midnight Diet] [DIET] 08/13/20 05:11 C-REACTIVE PROTEIN [CHEM] AM CBC WITH AUTO DIFF [HEME] AM CMP [COMPREHENSIVE METABOLIC PN,CMP] [CHEM] AM MAGNESIUM [CHEM] AM 08/13/20 09:30 Cholescintigraphy w Pharm Int [NM] Routine 08/14/20 05:11 C-REACTIVE PROTEIN [CHEM] AM CBC WITH AUTO DIFF [HEME] AM CMP [COMPREHENSIVE METABOLIC PN,CMP] [CHEM] AM MAGNESIUM [CHEM] AM 08/15/20 05:11 C-REACTIVE PROTEIN [CHEM] AM CBC WITH AUTO DIFF [HEME] AM CMP [COMPREHENSIVE METABOLIC PN,CMP] [CHEM] AM MAGNESIUM [CHEM] AM - Plan Plan:: AssessmentFebruary 2020 54-year-old male with history of CHF, COPD, asthma, automatic implantable cardioverter defibrillator, partial colectomy in 2013 secondary to unknown infected cyst, presents the emergency department with 7-day history of nausea, vomiting, and diarrhea. Patient has been unable to take his medications, therefore he is in acute exacerbation of heart failure. Patient was diagnosed with acalculous cholecystitis and Dr. Esparza recommended admission with plans on cholecystectomy in the future. Exacerbation of CHF * BNP 15,785 and troponin of 0.27 * Elevated troponin likely secondary to strain from worsening CHF and renal insufficiency. Unlikely that this is true injury from ischemic disease. * Unable to take his Lasix, lisinopril, metoprolol, or digoxin over the last 7 days * Given Lasix 40 mg IV in the emergency department Acalculous cholecystitis * Ultrasound consistent with cholecystitis but no gallstones noted * Dr. Esparza in surgery consulted * 7 days of nausea and vomiting and 4 days of diarrhea * Able to tolerate clear liquids tonight * Possible cholecystectomy * Cholecystitis is primarily an inflammatory process, but secondary infection of the gallbladder can occur as a result of bile stasis. * No significant sign of acute infection Acute on chronic renal insufficiency * Unknown baseline GFR * BUN 29, creatinine 1.5, estimated GFR 49 * Given fluid bolus in emergency department, but assisted living director Dr. Garcia recommends fluid restriction and Lasix Anemia * Hemoglobin is 12 * Likely mixed but most likely predominantly anemia of chronic disease Plan * Admit to medical floor * Consult Dr. Esparza * Treat nausea and vomiting so he can take oral medications * IV Lasix 40 mg twice daily * Follow CBC, CMP, mag, and C-reactive protein * Will get anemia panel in the morning * Add procalcitonin * Dr. Esparza recommended Zosyn secondary to the increased risk of infection * Clear liquid diet overnight and then asked Dr. Esparza's opinion on diet * VTE prophylaxis with Lovenox * CODE STATUS: Full code August 12, 2020 Exacerbation of CHF Acute renal insufficiency * Patient continues have elevated liver enzymes, but somewhat better. He has had a 9 pound weight loss since admission but minimal negative fluid output of just over 300 mL. * Currently on Lasix 40 mg twice daily. * Unfortunately this has made his acute on chronic renal sufficiency significantly worse. It appears that his renal insufficiency was very mild in March with a creatinine of 1.1 and estimated GFR greater than 60. * Echocardiogram done today showed: * 1. Left ventricular ejection fraction, by visual estimation, is 15 to 20%. * 2. Severely decreased left ventricular systolic function. * 3. Elevated mean left atrial pressure. * 4. Normal right ventricular systolic function. * 5. No aortic valve stenosis. * 6. Moderate mitral valve regurgitation. * 7. Mild tricuspid valve regurgitation. * 8. The right ventricular systolic pressure is moderately elevated at 53.4 mmHg. * 9. A pacer wire is visualized in the right ventricle. Acalculous cholecystitis * Liver enzymes continue to be elevated with AST of 245, ALT of 617, alk phos of 95 And total bilirubin of 1.3. These are all mildly improved. * C-reactive protein is down to 4.2 and white count is down to 9.22. * Dr. Esparza is following with patient. * Continue on Zosyn. * Patient had a significantly worsening of symptoms including right upper quadrant pain after a moderately high fat meal of eggs, ham, and cheese Anemia * Mildly reduced iron with reduced percent saturation. Vitamin B12 and folate are normal. Vitamin D deficiency * vitamin D is significantly reduced at 16.3 Plan * HIDA scan tomorrow morning. N.p.o. after midnight. * Dietary consult * Continue Lasix 40 mg IV twice daily * Follow I's and O's and daily weights. * If HIDA scan is positive and patient will need surgery of some sort this is not an appropriate venue for this patient due to his severe heart disease. * Continue following liver enzymes closely. * Continue Zosyn.
[2020-08-12] MEDS: Digoxin 250 MCG Tab PO SCH (11:39)
[2020-08-12] MEDS: Piperacillin/Tazobactam 4.5 GM in Sodium Chloride 0.9% 100 ML IV SCH ×2 (11:40→18:24)
--- NOTE | 2020-08-12 13:18 | PCM.CONS ---
H&P History of Present Illness - General Date of Service: 08/12/20 Admit Problem/Dx: Admission Diagnosis/Problem Admission Diagnosis/Problem Cholecystitis Source of Information: Patient History Limitations: Reports: No Limitations - History of Present Illness Initial Comments - Free Text/Narative: Patient has heart failure with AICD. About 1 weeks ago, he developed flu-like symptoms and post nasal drip with cough. He also started having nausea and vomiting. He reports that he was not able to keep anything including his medications down. His abdomen was also cramping a lot. Abdominal cramps were diffuse but mostly on the right abdomen. He eventually presented to the ED yesterday. No fevers or chills. In the ED, WBC was 11, AST, Tbili, ALT and Alk phos were elevated. Lipase was normal. CT a/p was concerning for possible bilateral kidney inflammation. No cholelithiasis. RUQ US showed GB wall thickening with paracholecystic fluid concerning for acute cholecystitis. However, these findings were not on CT. CXr showed evidence of pulm congestion. Creat was 1.5, pro-BNP was [id number]. These results were concerning for cholecystitis vs heart failure exacerbation or both. I was consulted to evaluate the patient. Onset of Symptoms: Reports: Gradual Duration of Symptoms: Reports: Day(s): (7) Location: Reports: Abdomen Quality: Reports: Other (cramps) Severity: Moderate Improves with: Reports: None Worsens with: Reports: None Associated Symptoms: Reports: Nausea/Vomiting Abdomen Pain Score (Numeric/FACES): 6 - Related Data Allergies/Adverse Reactions: Allergies Allergy/AdvReac Type Severity Reaction Status Date / Time shellfish derived Allergy Unknown Hives Verified 08/11/20 18:12 codeine AdvReac Unknown Hyperactivi Verified 08/11/20 18:12 ty Home Medications: Home Meds Albuterol Sulfate [Proair Hfa] 2 puff INH TID PRN 07/02/18 [History] Furosemide [Lasix] 40 mg PO BID 07/02/18 [History] Lisinopril 5 mg PO BID 07/02/18 [History] Potassium Chloride [K-Tab ER] 20 meq PO DAILY 07/02/18 [History] atorvaSTATin [Lipitor] 10 mg PO BEDTIME 07/02/18 [History] Digoxin 250 mcg PO DAILY 08/11/20 [History] Metoprolol Succinate 25 mg PO BID 08/11/20 [History] Past Medical History Cardiovascular History: Reports: Automatic Implantable Cardioverter Defibrillators, Heart Failure, SOB on Exertion Respiratory History: Reports: Asthma, COPD, SOB - Infectious Disease History Infectious Disease History: Reports: Chicken Pox, Measles, Mumps - Past Surgical History Other GI Surgeries/Procedures: 6 inches of colon removed in 2014 Social & Family History - Family History Family Medical History: No Pertinent Family History - Tobacco Use Tobacco Use Status *Q: Current Every Day Tobacco User Years of Tobacco use: 40 Packs/Tins Daily: 0.1 Tobacco Use Comment: smokes 1 cig/day and hasn't smoked in the last week. - Caffeine Use Caffeine Use: Reports: Soda - Recreational Drug Use Recreational Drug Use: No H&P Review of Systems - Review of Systems: Review Of Systems: See Below General: Reports: No Symptoms HEENT: Reports: No Symptoms Pulmonary: Reports: No Symptoms Cardiovascular: Reports: No Symptoms Gastrointestinal: Reports: Abdominal Pain Genitourinary: Reports: No Symptoms Musculoskeletal: Reports: No Symptoms Skin: Reports: No Symptoms Psychiatric: Reports: No Symptoms Neurological: Reports: No Symptoms Hematologic/Lymphatic: Reports: No Symptoms Exam - Exam Exam: See Below - Vital Signs Vital Signs: Last Vital Signs Temp 98.1 F 08/12/20 07:44 Pulse 82 08/12/20 11:39 Resp 20 08/12/20 07:44 BP 111/72 08/12/20 09:52 Pulse Ox 94 L 08/12/20 07:44 Weight: 74.208 kg - Exam General: Alert, Oriented, Cooperative Lungs: Clear to Auscultation, Normal Respiratory Effort Cardiovascular: Regular Rate, Regular Rhythm, Normal S1, Normal S2 GI/Abdominal Exam: No Organomegaly, No Mass, Guarding (voluntary), Tender (diffusely tender but more so on the RUQ and right mid abdomen), Other (no rebound) - Patient Data Lab Results Last 24 hrs: Laboratory Results - last 24 hr 08/11/20 08/11/20 08/11/20 Range/Units 13:15 13:15 13:15 WBC 11.72 H (4.23-9.07) K/mm3 RBC 4.21 L (4.63-6.08) M/mm3 Hgb 12.0 L D (13.7-17.5) gm/dl Hct 38.8 L (40.1-51.0) % MCV 92.2 (79.0-92.2) fl MCH 28.5 (25.7-32.2) pg MCHC 30.9 L (32.2-35.5) g/dl RDW Std Deviation 50.4 H (35.1-43.9) fL Plt Count 337 (163-337) K/mm3 MPV 9.5 (9.4-12.3) fl Neut % (Auto) 74.0 H (34.0-67.9) % Lymph % (Auto) 17.2 L (21.8-53.1) % [place] % (Auto) 7.5 (5.3-12.2) % Eos % (Auto) 0.9 (0.8-7.0) Baso % (Auto) 0.2 (0.1-1.2) % Neut # (Auto) 8.68 H (1.78-5.38) K/mm3 Lymph # (Auto) 2.02 (1.32-3.57) K/mm3 [place] # (Auto) 0.88 H (0.30-0.82) K/mm3 Eos # (Auto) 0.10 (0.04-0.54) K/mm3 Baso # (Auto) 0.02 (0.01-0.08) K/mm3 Manual Slide Review Normal smear Sodium 135 L (136-145) mEq/L Potassium 4.7 (3.5-5.1) mEq/L Chloride 99 (98-107) mEq/L Carbon Dioxide 23 D (21-32) mEq/L Anion Gap 17.7 H (5-15) BUN 29 H (7-18) mg/dL Creatinine 1.5 H (0.7-1.3) mg/dL Est Cr Clr Drug Dosing 52.64 mL/min Estimated GFR (MDRD) 49 (>60) mL/min BUN/Creatinine Ratio 19.3 H (14-18) Glucose 120 H (74-106) mg/dL Lactic Acid (0.4-2.0) mmol/L Calcium 8.7 (8.5-10.1) mg/dL Magnesium 2.2 (1.8-2.4) mg/dl Iron (65-175) ug/dL TIBC (100-400) ug/dL % Saturation (20-55) % Transferrin (202-364) mg/dL Total Bilirubin 1.8 H (0.2-1.0) mg/dL AST 273 H (15-37) U/L ALT 657 H (16-63) U/L Alkaline Phosphatase 121 H (46-116) U/L Troponin I 0.277 H* (0.00-0.056) ng/mL C-Reactive Protein 4.4 H* (<1.0) mg/dL NT-Pro-B Natriuret Pep (0-125) pg/mL Total Protein 6.9 (6.4-8.2) g/dl Albumin 3.4 (3.4-5.0) g/dl Globulin 3.5 gm/dL Albumin/Globulin Ratio 1.0 (1-2) Lipase 123 (73-393) U/L Vitamin B12 (193-986) pg/ml Vitamin D 25-Hydroxy (30.0-100.0) ng/ml Folate (8.6-58.9) ng/mL Urine Color (Yellow) Urine Appearance (Clear) Urine pH (5.0-8.0) Ur Specific [place] (1.005-1.030) Urine Protein (Negative) Urine Glucose (UA) (Negative) Urine Ketones (Negative) Urine Occult Blood (Negative) Urine Nitrite (Negative) Urine Bilirubin (Negative) Urine Urobilinogen (0.2-1.0) Ur Leukocyte Esterase (Negative) Urine RBC (0-5) /hpf Urine WBC (0-5) /hpf Ur Squamous Epith Cells (0-5) /hpf Urine Bacteria (FEW) /hpf Urine Mucus (FEW) /hpf SARS-CoV-2 RNA (BR[place]GETT) (NEGATIVE) 08/11/20 08/11/20 08/11/20 Range/Units 13:15 14:36 14:56 WBC (4.23-9.07) K/mm3 RBC (4.63-6.08) M/mm3 Hgb (13.7-17.5) gm/dl Hct (40.1-51.0) % MCV (79.0-92.2) fl MCH (25.7-32.2) pg MCHC (32.2-35.5) g/dl RDW Std Deviation (35.1-43.9) fL Plt Count (163-337) K/mm3 MPV (9.4-12.3) fl Neut % (Auto) (34.0-67.9) % Lymph % (Auto) (21.8-53.1) % [place] % (Auto) (5.3-12.2) % Eos % (Auto) (0.8-7.0) Baso % (Auto) (0.1-1.2) % Neut # (Auto) (1.78-5.38) K/mm3 Lymph # (Auto) (1.32-3.57) K/mm3 [place] # (Auto) (0.30-0.82) K/mm3 Eos # (Auto) (0.04-0.54) K/mm3 Baso # (Auto) (0.01-0.08) K/mm3 Manual Slide Review Sodium (136-145) mEq/L Potassium (3.5-5.1) mEq/L Chloride (98-107) mEq/L Carbon Dioxide (21-32) mEq/L Anion Gap (5-15) BUN (7-18) mg/dL Creatinine (0.7-1.3) mg/dL Est Cr Clr Drug Dosing mL/min Estimated GFR (MDRD) (>60) mL/min BUN/Creatinine Ratio (14-18) Glucose (74-106) mg/dL Lactic Acid 2.2 H* (0.4-2.0) mmol/L Calcium (8.5-10.1) mg/dL Magnesium (1.8-2.4) mg/dl Iron (65-175) ug/dL TIBC (100-400) ug/dL % Saturation (20-55) % Transferrin (202-364) mg/dL Total Bilirubin (0.2-1.0) mg/dL AST (15-37) U/L ALT (16-63) U/L Alkaline Phosphatase (46-116) U/L Troponin I (0.00-0.056) ng/mL C-Reactive Protein (<1.0) mg/dL NT-Pro-B Natriuret Pep 34398 H (0-125) pg/mL Total Protein (6.4-8.2) g/dl Albumin (3.4-5.0) g/dl Globulin gm/dL Albumin/Globulin Ratio (1-2) Lipase (73-393) U/L Vitamin B12 (193-986) pg/ml Vitamin D 25-Hydroxy (30.0-100.0) ng/ml Folate (8.6-58.9) ng/mL Urine Color Yellow (Yellow) Urine Appearance Clear (Clear) Urine pH 5.5 (5.0-8.0) Ur Specific [place] 1.015 (1.005-1.030) Urine Protein Negative (Negative) Urine Glucose (UA) Negative (Negative) Urine Ketones Negative (Negative) Urine Occult Blood Negative (Negative) Urine Nitrite Negative (Negative) Urine Bilirubin Negative (Negative) Urine Urobilinogen 0.2 (0.2-1.0) Ur Leukocyte Esterase Negative (Negative) Urine RBC 0-5 (0-5) /hpf Urine WBC 0-5 (0-5) /hpf Ur Squamous Epith Cells 0-5 (0-5) /hpf Urine Bacteria Few (FEW) /hpf Urine Mucus Few (FEW) /hpf SARS-CoV-2 RNA ([place]GET[place]) (NEGATIVE) 08/11/20 08/11/20 08/12/20 Range/Units 15:30 15:50 05:56 WBC 9.22 H (4.23-9.07) K/mm3 RBC 4.01 L (4.63-6.08) M/mm3 Hgb 11.4 L (13.7-17.5) gm/dl Hct 37.6 L (40.1-51.0) % MCV 93.8 H (79.0-92.2) fl MCH 28.4 (25.7-32.2) pg MCHC 30.3 L (32.2-35.5) g/dl RDW Std Deviation 52.6 H (35.1-43.9) fL Plt Count 303 (163-337) K/mm3 MPV 9.3 L (9.4-12.3) fl Neut % (Auto) 70.8 H (34.0-67.9) % Lymph % (Auto) 18.1 L (21.8-53.1) % [place] % (Auto) 9.8 (5.3-12.2) % Eos % (Auto) 0.9 (0.8-7.0) Baso % (Auto) 0.2 (0.1-1.2) % Neut # (Auto) 6.53 H (1.78-5.38) K/mm3 Lymph # (Auto) 1.67 (1.32-3.57) K/mm3 [place] # (Auto) 0.90 H (0.30-0.82) K/mm3 Eos # (Auto) 0.08 (0.04-0.54) K/mm3 Baso # (Auto) 0.02 (0.01-0.08) K/mm3 Manual Slide Review Sodium (136-145) mEq/L Potassium (3.5-5.1) mEq/L Chloride (98-107) mEq/L Carbon Dioxide (21-32) mEq/L Anion Gap (5-15) BUN (7-18) mg/dL Creatinine (0.7-1.3) mg/dL Est Cr Clr Drug Dosing mL/min Estimated GFR (MDRD) (>60) mL/min BUN/Creatinine Ratio (14-18) Glucose (74-106) mg/dL Lactic Acid (0.4-2.0) mmol/L Calcium (8.5-10.1) mg/dL Magnesium (1.8-2.4) mg/dl Iron (65-175) ug/dL TIBC (100-400) ug/dL % Saturation (20-55) % Transferrin (202-364) mg/dL Total Bilirubin (0.2-1.0) mg/dL AST (15-37) U/L ALT (16-63) U/L Alkaline Phosphatase (46-116) U/L Troponin I 0.274 H* (0.00-0.056) ng/mL C-Reactive Protein (<1.0) mg/dL NT-Pro-B Natriuret Pep (0-125) pg/mL Total Protein (6.4-8.2) g/dl Albumin (3.4-5.0) g/dl Globulin gm/dL Albumin/Globulin Ratio (1-2) Lipase (73-393) U/L Vitamin B12 (193-986) pg/ml Vitamin D 25-Hydroxy (30.0-100.0) ng/ml Folate (8.6-58.9) ng/mL Urine Color (Yellow) Urine Appearance (Clear) Urine pH (5.0-8.0) Ur Specific [place] (1.005-1.030) Urine Protein (Negative) Urine Glucose (UA) (Negative) Urine Ketones (Negative) Urine Occult Blood (Negative) Urine Nitrite (Negative) Urine Bilirubin (Negative) Urine Urobilinogen (0.2-1.0) Ur Leukocyte Esterase (Negative) Urine RBC (0-5) /hpf Urine WBC (0-5) /hpf Ur Squamous Epith Cells (0-5) /hpf Urine Bacteria (FEW) /hpf Urine Mucus (FEW) /hpf SARS-CoV-2 RNA ([place]GET[place]) Negative (NEGATIVE) 08/12/20 08/12/20 08/12/20 Range/Units 05:56 05:56 05:56 WBC (4.23-9.07) K/mm3 RBC (4.63-6.08) M/mm3 Hgb (13.7-17.5) gm/dl Hct (40.1-51.0) % MCV (79.0-92.2) fl MCH (25.7-32.2) pg MCHC (32.2-35.5) g/dl RDW Std Deviation (35.1-43.9) fL Plt Count (163-337) K/mm3 MPV (9.4-12.3) fl Neut % (Auto) (34.0-67.9) % Lymph % (Auto) (21.8-53.1) % [place] % (Auto) (5.3-12.2) % Eos % (Auto) (0.8-7.0) Baso % (Auto) (0.1-1.2) % Neut # (Auto) (1.78-5.38) K/mm3 Lymph # (Auto) (1.32-3.57) K/mm3 [place] # (Auto) (0.30-0.82) K/mm3 Eos # (Auto) (0.04-0.54) K/mm3 Baso # (Auto) (0.01-0.08) K/mm3 Manual Slide Review Sodium 138 (136-145) mEq/L Potassium 4.2 (3.5-5.1) mEq/L Chloride 100 (98-107) mEq/L Carbon Dioxide 26 (21-32) mEq/L Anion Gap 16.2 H (5-15) BUN 33 H (7-18) mg/dL Creatinine 1.7 H (0.7-1.3) mg/dL Est Cr Clr Drug Dosing 46.44 mL/min Estimated GFR (MDRD) 42 (>60) mL/min BUN/Creatinine Ratio 19.4 H (14-18) Glucose 83 (74-106) mg/dL Lactic Acid (0.4-2.0) mmol/L Calcium 8.0 L (8.5-10.1) mg/dL Magnesium 2.2 (1.8-2.4) mg/dl Iron 42 L (65-175) ug/dL TIBC 286 (100-400) ug/dL % Saturation 15 L (20-55) % Transferrin 229 (202-364) mg/dL Total Bilirubin 1.3 H (0.2-1.0) mg/dL AST 245 H (15-37) U/L ALT 617 H (16-63) U/L Alkaline Phosphatase 95 (46-116) U/L Troponin I (0.00-0.056) ng/mL C-Reactive Protein 4.2 H* (<1.0) mg/dL NT-Pro-B Natriuret Pep (0-125) pg/mL Total Protein 6.1 L (6.4-8.2) g/dl Albumin 3.1 L (3.4-5.0) g/dl Globulin 3.0 gm/dL Albumin/Globulin Ratio 1.0 (1-2) Lipase (73-393) U/L Vitamin B12 900 (193-986) pg/ml Vitamin D 25-Hydroxy 16.3 L (30.0-100.0) ng/ml Folate 15.9 (8.6-58.9) ng/mL Urine Color (Yellow) Urine Appearance (Clear) Urine pH (5.0-8.0) Ur Specific [place] (1.005-1.030) Urine Protein (Negative) Urine Glucose (UA) (Negative) Urine Ketones (Negative) Urine Occult Blood (Negative) Urine Nitrite (Negative) Urine Bilirubin (Negative) Urine Urobilinogen (0.2-1.0) Ur Leukocyte Esterase (Negative) Urine RBC (0-5) /hpf Urine WBC (0-5) /hpf Ur Squamous Epith Cells (0-5) /hpf Urine Bacteria (FEW) /hpf Urine Mucus (FEW) /hpf SARS-CoV-2 RNA ([place]GETT) (NEGATIVE) Result Diagrams: 08/12/20 05:56 08/12/20 05:56 Sepsis Event Note - Evaluation Sepsis Screening Result: No Definite Risk - Focused Exam Vital Signs: Vital Signs Temp Pulse Resp BP Pulse Ox 08/12/20 11:39 82 08/12/20 09:52 84 111/72 08/12/20 07:44 98.1 F 87 20 122/85 94 L 08/12/20 03:05 98.1 F 85 16 127/85 92 L Consult PN Assessment/Plan POD#: 1 Procedures: Procedures AIRWAY INHALATION TREATMENT (07/02/18) ASSAY OF MAGNESIUM (07/02/18) ASSAY OF NATRIURETIC PEPTIDE (07/02/18) ASSAY OF TROPONIN QUANT (07/02/18) BL SMEAR W/DIFF WBC COUNT (07/02/18) C-REACTIVE PROTEIN (07/02/18) CHEST X-RAY 1 VIEW FRONTAL (05/14/15) CO/MEMBANE DIFFUSE CAPACITY (11/08/16) COMPLETE CBC AUTOMATED (07/02/18) COMPLETE CBC W/AUTO DIFF WBC (11/22/16) COMPREHEN METABOLIC PANEL (07/02/18) CREATINE MB FRACTION (07/02/18) CT ANGIOGRAPHY CHEST (11/22/16) ELECTROCARDIOGRAM TRACING (07/02/18) EMERGENCY DEPT VISIT (07/02/18) EMERGENCY DEPT VISIT (07/11/14) EVALUATE PT USE OF INHALER (11/22/16) EVALUATION OF WHEEZING (11/08/16) HYDRATE IV INFUSION ADD-ON (11/22/16) INFLUENZA ASSAY W/OPTIC (07/02/18) MYCOPLASMA ANTIBODY (07/02/18) PROTHROMBIN TIME (07/02/18) PULM FUNCT TST PLETHYSMOGRAP (11/08/16) ROUTINE VENIPUNCTURE (07/02/18) THER/PROPH/DIAG INJ IV PUSH (07/02/18) THER/PROPH/DIAG INJ SC/IM (07/11/14) THROMBOPLASTIN TIME PARTIAL (07/02/18) TX/PRO/DX INJ NEW DRUG ADDON (07/02/18) TX/PRO/DX INJ SAME DRUG SUPERVISOR [employer]SEM[employer] (07/02/18) X-RAY EXAM CHEST 1 VIEW (07/02/18) X-RAY XM COLON 1CNTRST STD (07/09/14) Problem List Initiated/Reviewed/Updated: No Plan: Patient has symptoms that could be due to heart failure exacerbation and/or acalculus cholecystitis. - I recommended we obtain a HIDA scan to confirm cholecystitis. - At the mean time, the patient is going to be treated for CHF exacerbation. ECHO has been completed and per DR. Hernandez, EF is 15-20%. - IF HIDA is positive, then I will favor a cholecystostomy tube. - At the mean time, we will keep him on antibiotics.
[2020-08-12] MEDS: Cholecalciferol (Vitamin D3) 5,000 UNIT Cap PO SCH (14:47)
[2020-08-12] MEDS ORDERED: Furosemide 40 MG/4 ML VIAL IVPUSH ONE (15:45)
[2020-08-12] MEDS: Simvastatin 10 MG Tab PO SCH (20:08)
[2020-08-13] MEDS ORDERED: Piperacillin/Tazobactam 4.5 GM AdvVial ONE (04:21)
[2020-08-13] MEDS: Piperacillin/Tazobactam 4.5 GM in Sodium Chloride 0.9% 100 ML IV SCH ×2 (04:28→11:34)
[2020-08-13] MEDS: Furosemide 40 MG/4 ML VIAL IVPUSH SCH ×2 (07:02→15:31)
[2020-08-13] MEDS: Potassium Chloride 10 MEQ in Premix Bag 1 BAG IV SCH ×3 (11:08→11:42)
[2020-08-13] MEDS: Enoxaparin 40 MG/0.4 ML Syringe SUBCUT SCH (11:09)
[2020-08-13] MEDS: Metoprolol Succinate 25 MG Tab.ER PO SCH ×2 (11:10→20:45)
[2020-08-13] MEDS: Cholecalciferol (Vitamin D3) 5,000 UNIT Cap PO SCH (11:10)
--- NOTE | 2020-08-13 11:12 | NM ---
Biliary HIDA scan with ejection fraction Technique: 5.5 mCi of technetium 99m mebrofenin was given intravenously. Scintigraphic imaging then obtained over the upper abdomen. During the study, 3 ounces of cream and 1 teaspoon of sugar was given. Continued scintigraphic imaging was performed. Comparison: Prior limited abdominal ultrasound study of 08/11/20. Activity is seen within the gallbladder. Activity is also noted within the small bowel. Gallbladder activity is 81%. Impression: 1. Nothing abnormal seen on biliary HIDA scan. Normal gallbladder ejection fraction is also noted. Diagnostic code #1
[2020-08-13] MEDS: Digoxin 250 MCG Tab PO SCH (11:34)
--- NOTE | 2020-08-13 11:50 | PCM.PN ---
- General Info Date of Service: 08/13/20 Admission Dx/Problem (Free Text): Admission Diagnosis/Problem Admission Diagnosis/Problem Cholecystitis Subjective Update: Julio continues to state that his abdomen hurts. He is n.p.o. this morning and he continued to complain of epigastric and right upper quadrant pain. Liver enzymes are improving and his appetite is good. HIDA scan is scheduled for this morning. Functional Status: Denies: Pain Controlled - Review of Systems General: Reports: No Symptoms HEENT: Reports: No Symptoms Pulmonary: Reports: No Symptoms Cardiovascular: Reports: No Symptoms Gastrointestinal: Reports: Abdominal Pain Musculoskeletal: Reports: No Symptoms Psychiatric: Reports: No Symptoms - Patient Data Vitals - Most Recent: Last Vital Signs Temp 98.2 F 08/13/20 10:57 Pulse 79 08/13/20 11:34 Resp 19 08/13/20 10:57 BP 115/76 08/13/20 11:10 Pulse Ox 95 08/13/20 10:57 Weight - Most Recent: 160 lb 14.4 oz I&O - Last 24 Hours: Intake & Output 08/12/20 08/13/20 08/13/20 22:59 06:59 14:59 Intake Total 1120 450 Output Total 3097 1600 Balance -1976 Lab Results Last 24 Hours: Laboratory Results - last 24 hr 08/11/20 08/12/20 08/13/20 Range/Units 13:15 19:50 04:46 WBC 8.42 (4.23-9.07) K/mm3 RBC 4.13 L (4.63-6.08) M/mm3 Hgb 11.8 L (13.7-17.5) gm/dl Hct 38.7 L (40.1-51.0) % MCV 93.7 H (79.0-92.2) fl MCH 28.6 (25.7-32.2) pg MCHC 30.5 L (32.2-35.5) g/dl RDW Std Deviation 53.0 H (35.1-43.9) fL Plt Count 338 H (163-337) K/mm3 MPV 9.2 L (9.4-12.3) fl Neut % (Auto) 59.2 (34.0-67.9) % Lymph % (Auto) 25.7 (21.8-53.1) % [place] % (Auto) 10.8 (5.3-12.2) % Eos % (Auto) 4.0 (0.8-7.0) Baso % (Auto) 0.2 (0.1-1.2) % Neut # (Auto) 4.98 (1.78-5.38) K/mm3 Lymph # (Auto) 2.16 (1.32-3.57) K/mm3 [place] # (Auto) 0.91 H (0.30-0.82) K/mm3 Eos # (Auto) 0.34 (0.04-0.54) K/mm3 Baso # (Auto) 0.02 (0.01-0.08) K/mm3 Manual Slide Review Normal smear Sodium (136-145) mEq/L Potassium 3.9 (3.5-5.1) mEq/L Chloride (98-107) mEq/L Carbon Dioxide (21-32) mEq/L Anion Gap (5-15) BUN (7-18) mg/dL Creatinine (0.7-1.3) mg/dL Est Cr Clr Drug Dosing mL/min Estimated GFR (MDRD) (>60) mL/min BUN/Creatinine Ratio (14-18) Glucose (74-106) mg/dL Calcium (8.5-10.1) mg/dL Magnesium (1.8-2.4) mg/dl Total Bilirubin (0.2-1.0) mg/dL AST (15-37) U/L ALT (16-63) U/L Alkaline Phosphatase (46-116) U/L C-Reactive Protein (<1.0) mg/dL Total Protein (6.4-8.2) g/dl Albumin (3.4-5.0) g/dl Globulin gm/dL Albumin/Globulin Ratio (1-2) Procalcitonin 0.32 H ng/mL 08/13/20 Range/Units 04:46 WBC (4.23-9.07) K/mm3 RBC (4.63-6.08) M/mm3 Hgb (13.7-17.5) gm/dl Hct (40.1-51.0) % MCV (79.0-92.2) fl MCH (25.7-32.2) pg MCHC (32.2-35.5) g/dl RDW Std Deviation (35.1-43.9) fL Plt Count (163-337) K/mm3 MPV (9.4-12.3) fl Neut % (Auto) (34.0-67.9) % Lymph % (Auto) (21.8-53.1) % [place] % (Auto) (5.3-12.2) % Eos % (Auto) (0.8-7.0) Baso % (Auto) (0.1-1.2) % Neut # (Auto) (1.78-5.38) K/mm3 Lymph # (Auto) (1.32-3.57) K/mm3 [place] # (Auto) (0.30-0.82) K/mm3 Eos # (Auto) (0.04-0.54) K/mm3 Baso # (Auto) (0.01-0.08) K/mm3 Manual Slide Review Sodium 140 (136-145) mEq/L Potassium 3.2 L (3.5-5.1) mEq/L Chloride 97 L (98-107) mEq/L Carbon Dioxide 32 (21-32) mEq/L Anion Gap 14.2 (5-15) BUN 42 H (7-18) mg/dL Creatinine 2.1 H (0.7-1.3) mg/dL Est Cr Clr Drug Dosing 37.60 mL/min Estimated GFR (MDRD) 33 (>60) mL/min BUN/Creatinine Ratio 20.0 H (14-18) Glucose 82 (74-106) mg/dL Calcium 7.8 L (8.5-10.1) mg/dL Magnesium 2.2 (1.8-2.4) mg/dl Total Bilirubin 0.9 (0.2-1.0) mg/dL AST 120 H (15-37) U/L ALT 475 H (16-63) U/L Alkaline Phosphatase 87 (46-116) U/L C-Reactive Protein 3.4 H* (<1.0) mg/dL Total Protein 6.1 L (6.4-8.2) g/dl Albumin 3.0 L (3.4-5.0) g/dl Globulin 3.1 gm/dL Albumin/Globulin Ratio 1.0 (1-2) Procalcitonin ng/mL Miguel A Results Last 24 Hours: Microbiology 08/11/20 14:41 Aerobic Blood Culture - Preliminary Blood - Venous - Lab Draw NO GROWTH AFTER 1 DAY Anaerobic Blood Culture - Preliminary NO GROWTH AFTER 1 DAY 08/11/20 14:36 Aerobic Blood Culture - Preliminary Blood - Venous NO GROWTH AFTER 1 DAY Anaerobic Blood Culture - Preliminary NO GROWTH AFTER 1 DAY Med Orders - Current: Current Medications Acetaminophen (Tylenol) 650 mg PO Q4H PRN PRN Reason: Pain (Mild 1-3)/fever Last Admin: 08/12/20 20:09 Dose: 650 mg Documented by: Albuterol (Proventil Hfa) 0 gm INH TID PRN PRN Reason: Shortness of Breath Cholecalciferol (Vitamin D3) 10,000 unit PO DAILY [facility] Last Admin: 08/13/20 11:10 Dose: 10,000 unit Documented by: Digoxin (Lanoxin) 250 mcg PO DAILY@1200 [facility] Last Admin: 08/13/20 11:34 Dose: 250 mcg Documented by: Enoxaparin Sodium (Lovenox) 40 mg SUBCUT DAILY [facility] Last Admin: 08/13/20 11:09 Dose: 40 mg Documented by: Furosemide (Lasix) 40 mg IVPUSH BIDDIURETIC [facility] Last Admin: 08/13/20 07:02 Dose: Not Given Documented by: Hydromorphone HCl (Dilaudid) 0.5 mg IVPUSH Q2H PRN PRN Reason: Pain (severe 7-10) Last Admin: 08/12/20 09:59 Dose: 0.5 mg Documented by: Potassium Chloride 10 meq/ (Premix) 100 mls @ 100 mls/hr IV Q1H [facility] Stop: 08/13/20 11:59 Last Admin: 08/13/20 11:42 Dose: Not Given Documented by: Metoprolol Succinate (Toprol Xl) 25 mg PO BID [facility] Last Admin: 08/13/20 11:10 Dose: 25 mg Documented by: Ondansetron HCl (Zofran) 4 mg IV Q4H PRN PRN Reason: Nausea/Vomiting Last Admin: 08/12/20 18:26 Dose: 4 mg Documented by: Oxycodone HCl (Oxycodone) 5 mg PO Q4H PRN PRN Reason: Abdominal Pain Last Admin: 08/12/20 20:08 Dose: 5 mg Documented by: Simvastatin (Zocor) 10 mg PO BEDTIME [facility] Last Admin: 08/12/20 20:08 Dose: 10 mg Documented by: Sodium Chloride (Saline Flush) 10 ml FLUSH ASDIRECTED PRN PRN Reason: Keep Vein Open Last Admin: 08/11/20 13:56 Dose: 10 ml Documented by: Discontinued Medications Albuterol/Ipratropium (Duoneb 3.0-0.5 Mg/3 Ml) 3 ml NEB ONETIME ONE Stop: 08/11/20 15:14 Last Admin: 08/11/20 15:22 Dose: 3 ml Documented by: Furosemide (Lasix) 40 mg IVPUSH ONETIME ONE Stop: 08/12/20 15:46 Furosemide (Lasix) 40 mg IVPUSH ONETIME ONE Stop: 08/11/20 15:46 Last Admin: 08/11/20 16:13 Dose: 40 mg Documented by: Hydromorphone HCl (Dilaudid) 0.5 mg IVPUSH ONETIME ONE Stop: 08/11/20 15:21 Last Admin: 08/11/20 15:36 Dose: 0.5 mg Documented by: Hydromorphone HCl (Dilaudid) 0.5 mg IVPUSH ONETIME ONE Stop: 08/11/20 16:53 Last Admin: 08/11/20 16:58 Dose: 0.5 mg Documented by: Sodium Chloride (Normal Saline) 1,000 mls @ 100 mls/hr IV NOW STA Stop: 08/11/20 23:23 Last Admin: 08/11/20 13:56 Dose: 100 mls/hr Documented by: Sodium Chloride (Normal Saline) 500 mls @ 999 mls/hr IV NOW STA Stop: 08/11/20 14:39 Last Admin: 08/11/20 15:47 Dose: Not Given Documented by: Piperacillin Sod/Tazobactam (Sod 4.5 gm/ Sodium Chloride) 100 mls @ 200 mls/hr IV ONETIME ONE Stop: 08/11/20 17:09 Last Admin: 08/11/20 17:00 Dose: 200 mls/hr Documented by: Piperacillin Sod/Tazobactam (Sod 4.5 gm/ Sodium Chloride) 100 mls @ 25 mls/hr IV Q8H [facility] Last Admin: 08/13/20 11:34 Dose: 25 mls/hr Documented by: Iopamidol (Isovue-300 (61%)) 100 ml IVPUSH ONETIME ONE Stop: 08/11/20 13:35 Last Admin: 08/11/20 14:01 Dose: 100 ml Documented by: Ondansetron HCl (Zofran) 4 mg IVPUSH ONETIME ONE Stop: 08/11/20 13:25 Last Admin: 08/11/20 13:56 Dose: 4 mg Documented by: Piperacillin Sod/Tazobactam Sod (Piperacil-Tazobact) Confirm Administered Dose 4.5 gm .ROUTE .STK-MED ONE Stop: 08/13/20 04:22 Last Admin: 08/13/20 04:30 Dose: Not Given Documented by: Sodium Chloride (Saline Flush) 10 ml FLUSH ONETIME PRN PRN Reason: IV FLUSH Last Admin: 08/11/20 14:01 Dose: 10 ml Documented by: - Exam Quality Assessment: No: Supplemental Oxygen General: Alert, Oriented HEENT: Pupils Equal, Mucous Membr. Moist/[place] Neck: Supple Lungs: Normal Respiratory Effort, Rales (Minimal bibasilar) Cardiovascular: Regular Rate, Regular Rhythm GI/Abdominal Exam: Normal Bowel Sounds, Soft, Non-Tender, No Distention Extremities: Normal Inspection, Normal Range of Motion, Non-Tender, No Pedal Edema, Normal Capillary Refill Skin: Warm, Dry, Intact Neurological: No New Focal Deficit Psy/Mental Status: Alert, Normal Affect, Normal Mood Sepsis Event Note - Evaluation Sepsis Screening Result: No Definite Risk - Focused Exam Vital Signs: Vital Signs Temp Pulse Resp BP Pulse Ox 08/13/20 11:34 79 08/13/20 11:10 79 115/76 08/13/20 10:57 98.2 F 79 19 115/76 95 08/13/20 07:26 97.9 F 73 16 116/83 94 L 08/13/20 03:38 97.9 F 71 18 120/92 H 95 08/13/20 01:18 75 93 L - Problem List & Annotations (1) Acute acalculous cholecystitis SNOMED Code(s): 39932548 Code(s): K81.0 - ACUTE CHOLECYSTITIS Status: Ruled-out Current Visit: Yes (2) CHF exacerbation SNOMED Code(s): 910458798, 99267520707588 Code(s): I50.9 - HEART FAILURE, UNSPECIFIED Status: Acute Current Visit: Yes (3) Nonspecific abdominal pain SNOMED Code(s): 429388101 Code(s): R10.9 - UNSPECIFIED ABDOMINAL PAIN Status: Acute Current Visit: Yes - Problem List Review Problem List Initiated/Reviewed/Updated: Yes - My Orders Last 24 Hours: My Active Orders 08/12/20 12:00 Digoxin [Lanoxin] 250 mcg PO DAILY@1200 08/12/20 14:45 Cholecalciferol (Vitamin D3) [Vitamin D3] 10,000 unit PO DAILY 08/13/20 08:00 Potassium Chloride [KCl in Water 10 MEQ/100 ML] 10 meq Premix Bag 1 bag IV Q1H 08/13/20 Lunch 2 Gram Sodium Diet [DIET] 08/14/20 05:11 C-REACTIVE PROTEIN [CHEM] AM CBC WITH AUTO DIFF [HEME] AM CMP [COMPREHENSIVE METABOLIC PN,CMP] [CHEM] AM MAGNESIUM [CHEM] AM 08/15/20 05:11 C-REACTIVE PROTEIN [CHEM] AM CBC WITH AUTO DIFF [HEME] AM CMP [COMPREHENSIVE METABOLIC PN,CMP] [CHEM] AM MAGNESIUM [CHEM] AM - Plan Plan:: AssessmentFebruary 2020 54-year-old male with history of CHF, COPD, asthma, automatic implantable cardioverter defibrillator, partial colectomy in 2013 secondary to unknown infected cyst, presents the emergency department with 7-day history of nausea, vomiting, and diarrhea. Patient has been unable to take his medications, therefore he is in acute exacerbation of heart failure. Patient was diagnosed with acalculous cholecystitis and Dr. Esparza recommended admission with plans on cholecystectomy in the future. Exacerbation of CHF * BNP 15,785 and troponin of 0.27 * Elevated troponin likely secondary to strain from worsening CHF and renal insufficiency. Unlikely that this is true injury from ischemic disease. * Unable to take his Lasix, lisinopril, metoprolol, or digoxin over the last 7 days * Given Lasix 40 mg IV in the emergency department Acalculous cholecystitis * Ultrasound consistent with cholecystitis but no gallstones noted * Dr. Esparza in surgery consulted * 7 days of nausea and vomiting and 4 days of diarrhea * Able to tolerate clear liquids tonight * Possible cholecystectomy * Cholecystitis is primarily an inflammatory process, but secondary infection of the gallbladder can occur as a result of bile stasis. * No significant sign of acute infection Acute on chronic renal insufficiency * Unknown baseline GFR * BUN 29, creatinine 1.5, estimated GFR 49 * Given fluid bolus in emergency department, but [place] attendant Dr. Garcia recommends fluid restriction and Lasix Anemia * Hemoglobin is 12 * Likely mixed but most likely predominantly anemia of chronic disease Plan * Admit to medical floor * Consult Dr. Esparza * Treat nausea and vomiting so he can take oral medications * IV Lasix 40 mg twice daily * Follow CBC, CMP, mag, and C-reactive protein * Will get anemia panel in the morning * Add procalcitonin * Dr. Esparza recommended Zosyn secondary to the increased risk of infection * Clear liquid diet overnight and then asked Dr. Esparza's opinion on diet * VTE prophylaxis with Lovenox * CODE STATUS: Full code August 12, 2020 Exacerbation of CHF Acute renal insufficiency * Patient continues have elevated liver enzymes, but somewhat better. He has had a 9 pound weight loss since admission but minimal negative fluid output of just over 300 mL. * Currently on Lasix 40 mg twice daily. * Unfortunately this has made his acute on chronic renal sufficiency significantly worse. It appears that his renal insufficiency was very mild in March with a creatinine of 1.1 and estimated GFR greater than 60. * Echocardiogram done today showed: * 1. Left ventricular ejection fraction, by visual estimation, is 15 to 20%. * 2. Severely decreased left ventricular systolic function. * 3. Elevated mean left atrial pressure. * 4. Normal right ventricular systolic function. * 5. No aortic valve stenosis. * 6. Moderate mitral valve regurgitation. * 7. Mild tricuspid valve regurgitation. * 8. The right ventricular systolic pressure is moderately elevated at 53.4 mmHg. * 9. A pacer wire is visualized in the right ventricle. Acalculous cholecystitis * Liver enzymes continue to be elevated with AST of 245, ALT of 617, alk phos of 95 And total bilirubin of 1.3. These are all mildly improved. * C-reactive protein is down to 4.2 and white count is down to 9.22. * Dr. Esparza is following with patient. * Continue on Zosyn. * Patient had a significantly worsening of symptoms including right upper quadrant pain after a moderately high fat meal of eggs, ham, and cheese Anemia * Mildly reduced iron with reduced percent saturation. Vitamin B12 and folate are normal. Vitamin D deficiency * vitamin D is significantly reduced at 16.3 Plan * HIDA scan tomorrow morning. N.p.o. after midnight. * Dietary consult * Continue Lasix 40 mg IV twice daily * Follow I's and O's and daily weights. * If HIDA scan is positive and patient will need surgery of some sort this is not an appropriate venue for this patient due to his severe heart disease. * Continue following liver enzymes closely. * Continue Zosyn. August 13, 2020 Patient initially this morning felt poorly with abdominal pain, but when I saw him after eating lunch at noon he was feeling much better. He was having pain during the HIDA scan, but after lunch he was not having any significant pain. He did have some right upper quadrant tenderness but it seemed more mild. Also, he has had a good 12 pound weight loss and kidney function has worsened consistent with diuresis. Also, liver function tests are improving. Acute viral panel has not returned. We will get specific hepatitis A, B, and C screening if it is available at our hospital and not a send out. Hold Lasix today because of overdiuresis. Started on vitamin D3 10,000 units daily. Patient may need an upper endoscopy as an outpatient, but will let Dr. Esparza decide if that is appropriate or not. Because kidney function is significantly worse today we will hold diuretics. Negative fluid balance of 3000 mL 12 pound weight loss. Patient also was found to have hypokalemia with potassium of 3.2. We tried to infuse it IV because he was n.p.o. this morning, but he did not tolerate IV potassium. Patient will be given 40 mEq of p.o. potassium. Plan discharge tomorrow pending improvement in renal function.
[2020-08-13] MEDS ORDERED: Potassium Chloride 20 MEQ Tab.ER PO ONE ×2 (13:00→15:30)
--- NOTE | 2020-08-13 18:48 | PCM.PN ---
- General Info Date of Service: 08/13/20 Admission Dx/Problem (Free Text): Admission Diagnosis/Problem Admission Diagnosis/Problem Cholecystitis Subjective Update: Patient is feeling better today, tolerating Po intake. WBC is normal Functional Status: Reports: Pain Controlled, Tolerating Diet, Ambulating, Urinating - Review of Systems General: Reports: No Symptoms HEENT: Reports: No Symptoms Pulmonary: Reports: No Symptoms Cardiovascular: Reports: No Symptoms Gastrointestinal: Reports: No Symptoms Genitourinary: Reports: No Symptoms Musculoskeletal: Reports: No Symptoms Skin: Reports: No Symptoms Neurological: Reports: No Symptoms, Change in Speech Psychiatric: Reports: No Symptoms - Patient Data Vitals - Most Recent: Last Vital Signs Temp 98.8 F 08/13/20 16:26 Pulse 40 L 08/13/20 16:26 Resp 18 08/13/20 16:26 BP 118/88 08/13/20 16:26 Pulse Ox 95 08/13/20 16:26 Weight - Most Recent: 72.983 kg I&O - Last 24 Hours: Intake & Output 08/13/20 08/13/20 08/13/20 06:59 14:59 22:59 Intake Total 450 1740 Output Total 1600 200 Balance -1150 1540 Lab Results Last 24 Hours: Laboratory Results - last 24 hr 08/11/20 08/12/20 08/12/20 Range/Units 13:15 13:00 19:50 WBC (4.23-9.07) K/mm3 RBC (4.63-6.08) M/mm3 Hgb (13.7-17.5) gm/dl Hct (40.1-51.0) % MCV (79.0-92.2) fl MCH (25.7-32.2) pg MCHC (32.2-35.5) g/dl RDW Std Deviation (35.1-43.9) fL Plt Count (163-337) K/mm3 MPV (9.4-12.3) fl Neut % (Auto) (34.0-67.9) % Lymph % (Auto) (21.8-53.1) % [place] % (Auto) (5.3-12.2) % Eos % (Auto) (0.8-7.0) Baso % (Auto) (0.1-1.2) % Neut # (Auto) (1.78-5.38) K/mm3 Lymph # (Auto) (1.32-3.57) K/mm3 [place] # (Auto) (0.30-0.82) K/mm3 Eos # (Auto) (0.04-0.54) K/mm3 Baso # (Auto) (0.01-0.08) K/mm3 Manual Slide Review Sodium (136-145) mEq/L Potassium 3.9 (3.5-5.1) mEq/L Chloride (98-107) mEq/L Carbon Dioxide (21-32) mEq/L Anion Gap (5-15) BUN (7-18) mg/dL Creatinine (0.7-1.3) mg/dL Est Cr Clr Drug Dosing mL/min Estimated GFR (MDRD) (>60) mL/min BUN/Creatinine Ratio (14-18) Glucose (74-106) mg/dL Calcium (8.5-10.1) mg/dL Magnesium (1.8-2.4) mg/dl Total Bilirubin (0.2-1.0) mg/dL AST (15-37) U/L ALT (16-63) U/L Alkaline Phosphatase (46-116) U/L C-Reactive Protein (<1.0) mg/dL Total Protein (6.4-8.2) g/dl Albumin (3.4-5.0) g/dl Globulin gm/dL Albumin/Globulin Ratio (1-2) Procalcitonin 0.32 H ng/mL Hepatitis C Antibody Negative (NEGATIVE) 08/13/20 08/13/20 Range/Units 04:46 04:46 WBC 8.42 (4.23-9.07) K/mm3 RBC 4.13 L (4.63-6.08) M/mm3 Hgb 11.8 L (13.7-17.5) gm/dl Hct 38.7 L (40.1-51.0) % MCV 93.7 H (79.0-92.2) fl MCH 28.6 (25.7-32.2) pg MCHC 30.5 L (32.2-35.5) g/dl RDW Std Deviation 53.0 H (35.1-43.9) fL Plt Count 338 H (163-337) K/mm3 MPV 9.2 L (9.4-12.3) fl Neut % (Auto) 59.2 (34.0-67.9) % Lymph % (Auto) 25.7 (21.8-53.1) % [place] % (Auto) 10.8 (5.3-12.2) % Eos % (Auto) 4.0 (0.8-7.0) Baso % (Auto) 0.2 (0.1-1.2) % Neut # (Auto) 4.98 (1.78-5.38) K/mm3 Lymph # (Auto) 2.16 (1.32-3.57) K/mm3 [place] # (Auto) 0.91 H (0.30-0.82) K/mm3 Eos # (Auto) 0.34 (0.04-0.54) K/mm3 Baso # (Auto) 0.02 (0.01-0.08) K/mm3 Manual Slide Review Normal smear Sodium 140 (136-145) mEq/L Potassium 3.2 L (3.5-5.1) mEq/L Chloride 97 L (98-107) mEq/L Carbon Dioxide 32 (21-32) mEq/L Anion Gap 14.2 (5-15) BUN 42 H (7-18) mg/dL Creatinine 2.1 H (0.7-1.3) mg/dL Est Cr Clr Drug Dosing 37.60 mL/min Estimated GFR (MDRD) 33 (>60) mL/min BUN/Creatinine Ratio 20.0 H (14-18) Glucose 82 (74-106) mg/dL Calcium 7.8 L (8.5-10.1) mg/dL Magnesium 2.2 (1.8-2.4) mg/dl Total Bilirubin 0.9 (0.2-1.0) mg/dL AST 120 H (15-37) U/L ALT 475 H (16-63) U/L Alkaline Phosphatase 87 (46-116) U/L C-Reactive Protein 3.4 H* (<1.0) mg/dL Total Protein 6.1 L (6.4-8.2) g/dl Albumin 3.0 L (3.4-5.0) g/dl Globulin 3.1 gm/dL Albumin/Globulin Ratio 1.0 (1-2) Procalcitonin ng/mL Hepatitis C Antibody (NEGATIVE) Miguel A Results Last 24 Hours: Microbiology 08/11/20 14:41 Aerobic Blood Culture - Preliminary Blood - Venous - Lab Draw NO GROWTH AFTER 2 DAYS Anaerobic Blood Culture - Preliminary NO GROWTH AFTER 2 DAYS 08/11/20 14:36 Aerobic Blood Culture - Preliminary Blood - Venous NO GROWTH AFTER 2 DAYS Anaerobic Blood Culture - Preliminary NO GROWTH AFTER 2 DAYS Med Orders - Current: Current Medications Acetaminophen (Tylenol) 650 mg PO Q4H PRN PRN Reason: Pain (Mild 1-3)/fever Last Admin: 08/12/20 20:09 Dose: 650 mg Documented by: Albuterol (Proventil Hfa) 0 gm INH TID PRN PRN Reason: Shortness of Breath Cholecalciferol (Vitamin D3) 10,000 unit PO DAILY [facility] Last Admin: 08/13/20 11:10 Dose: 10,000 unit Documented by: Digoxin (Lanoxin) 250 mcg PO DAILY@1200 [facility] Last Admin: 08/13/20 11:34 Dose: 250 mcg Documented by: Enoxaparin Sodium (Lovenox) 40 mg SUBCUT DAILY [facility] Last Admin: 08/13/20 11:09 Dose: 40 mg Documented by: Furosemide (Lasix) 40 mg PO BIDDIURETIC [facility] Hydromorphone HCl (Dilaudid) 0.5 mg IVPUSH Q2H PRN PRN Reason: Pain (severe 7-10) Last Admin: 08/12/20 09:59 Dose: 0.5 mg Documented by: Metoprolol Succinate (Toprol Xl) 25 mg PO BID [facility] Last Admin: 08/13/20 11:10 Dose: 25 mg Documented by: Ondansetron HCl (Zofran) 4 mg IV Q4H PRN PRN Reason: Nausea/Vomiting Last Admin: 08/12/20 18:26 Dose: 4 mg Documented by: Oxycodone HCl (Oxycodone) 5 mg PO Q4H PRN PRN Reason: Abdominal Pain Last Admin: 08/12/20 20:08 Dose: 5 mg Documented by: Simvastatin (Zocor) 10 mg PO BEDTIME [facility] Last Admin: 08/12/20 20:08 Dose: 10 mg Documented by: Sodium Chloride (Saline Flush) 10 ml FLUSH ASDIRECTED PRN PRN Reason: Keep Vein Open Last Admin: 08/11/20 13:56 Dose: 10 ml Documented by: Discontinued Medications Albuterol/Ipratropium (Duoneb 3.0-0.5 Mg/3 Ml) 3 ml NEB ONETIME ONE Stop: 08/11/20 15:14 Last Admin: 08/11/20 15:22 Dose: 3 ml Documented by: Furosemide (Lasix) 40 mg IVPUSH ONETIME ONE Stop: 08/12/20 15:46 Furosemide (Lasix) 40 mg IVPUSH ONETIME ONE Stop: 08/11/20 15:46 Last Admin: 08/11/20 16:13 Dose: 40 mg Documented by: Furosemide (Lasix) 40 mg IVPUSH BIDDIURETIC [facility] Stop: 08/13/20 16:00 Last Admin: 08/13/20 15:31 Dose: Not Given Documented by: Hydromorphone HCl (Dilaudid) 0.5 mg IVPUSH ONETIME ONE Stop: 08/11/20 15:21 Last Admin: 08/11/20 15:36 Dose: 0.5 mg Documented by: Hydromorphone HCl (Dilaudid) 0.5 mg IVPUSH ONETIME ONE Stop: 08/11/20 16:53 Last Admin: 08/11/20 16:58 Dose: 0.5 mg Documented by: Sodium Chloride (Normal Saline) 1,000 mls @ 100 mls/hr IV NOW STA Stop: 08/11/20 23:23 Last Admin: 08/11/20 13:56 Dose: 100 mls/hr Documented by: Sodium Chloride (Normal Saline) 500 mls @ 999 mls/hr IV NOW STA Stop: 08/11/20 14:39 Last Admin: 08/11/20 15:47 Dose: Not Given Documented by: Piperacillin Sod/Tazobactam (Sod 4.5 gm/ Sodium Chloride) 100 mls @ 200 mls/hr IV ONETIME ONE Stop: 08/11/20 17:09 Last Admin: 08/11/20 17:00 Dose: 200 mls/hr Documented by: Piperacillin Sod/Tazobactam (Sod 4.5 gm/ Sodium Chloride) 100 mls @ 25 mls/hr IV Q8H [facility] Last Admin: 08/13/20 11:34 Dose: 25 mls/hr Documented by: Potassium Chloride 10 meq/ (Premix) 100 mls @ 100 mls/hr IV Q1H [facility] Stop: 08/13/20 11:59 Last Admin: 08/13/20 11:42 Dose: Not Given Documented by: Iopamidol (Isovue-300 (61%)) 100 ml IVPUSH ONETIME ONE Stop: 08/11/20 13:35 Last Admin: 08/11/20 14:01 Dose: 100 ml Documented by: Ondansetron HCl (Zofran) 4 mg IVPUSH ONETIME ONE Stop: 08/11/20 13:25 Last Admin: 08/11/20 13:56 Dose: 4 mg Documented by: Piperacillin Sod/Tazobactam Sod (Piperacil-Tazobact) Confirm Administered Dose 4.5 gm .ROUTE .STK-MED ONE Stop: 08/13/20 04:22 Last Admin: 08/13/20 04:30 Dose: Not Given Documented by: Potassium Chloride (Klor-Con M20) 40 meq PO ONETIME ONE Stop: 08/13/20 15:31 Last Admin: 08/13/20 15:25 Dose: 40 meq Documented by: Sodium Chloride (Saline Flush) 10 ml FLUSH ONETIME PRN PRN Reason: IV FLUSH Last Admin: 08/11/20 14:01 Dose: 10 ml Documented by: - Exam General: Alert, Oriented, Cooperative Lungs: Normal Respiratory Effort Cardiovascular: Regular Rate, Regular Rhythm GI/Abdominal Exam: Soft, No Organomegaly, No Distention, No Abnormal Bruit, Tender (mildly diffusely) Sepsis Event Note - Evaluation Sepsis Screening Result: No Definite Risk - Focused Exam Vital Signs: Vital Signs Temp Pulse Resp BP Pulse Ox 08/13/20 16:26 98.8 F 40 L 18 118/88 95 08/13/20 11:34 79 08/13/20 11:10 79 115/76 08/13/20 10:57 98.2 F 79 19 115/76 95 08/13/20 07:26 97.9 F 73 16 116/83 94 L - Problem List Review Problem List Initiated/Reviewed/Updated: No - Assessment Assessment:: HIDA scan reviewed, normal - Plan Plan:: AssessmentFebruary 2020 54-year-old male with history of CHF, COPD, asthma, automatic implantable cardioverter defibrillator, partial colectomy in 2013 secondary to unknown infected cyst, presents the emergency department with 7-day history of nausea, vomiting, and diarrhea. Patient has been unable to take his medications, therefore he is in acute exacerbation of heart failure. Patient was diagnosed with acalculous cholecystitis and Dr. Esparza recommended admission with plans on cholecystectomy in the future. Exacerbation of CHF * BNP 15,785 and troponin of 0.27 * Elevated troponin likely secondary to strain from worsening CHF and renal insufficiency. Unlikely that this is true injury from ischemic disease. * Unable to take his Lasix, lisinopril, metoprolol, or digoxin over the last 7 days * Given Lasix 40 mg IV in the emergency department Acalculous cholecystitis * Ultrasound consistent with cholecystitis but no gallstones noted * Dr. Esparza in surgery consulted * 7 days of nausea and vomiting and 4 days of diarrhea * Able to tolerate clear liquids tonight * Possible cholecystectomy * Cholecystitis is primarily an inflammatory process, but secondary infection of the gallbladder can occur as a result of bile stasis. * No significant sign of acute infection Acute on chronic renal insufficiency * Unknown baseline GFR * BUN 29, creatinine 1.5, estimated GFR 49 * Given fluid bolus in emergency department, but study director Dr. Garcia recommends fluid restriction and Lasix Anemia * Hemoglobin is 12 * Likely mixed but most likely predominantly anemia of chronic disease Plan * Admit to medical floor * Consult Dr. Esparza * Treat nausea and vomiting so he can take oral medications * IV Lasix 40 mg twice daily * Follow CBC, CMP, mag, and C-reactive protein * Will get anemia panel in the morning * Add procalcitonin * Dr. Esparza recommended Zosyn secondary to the increased risk of infection * Clear liquid diet overnight and then asked Dr. Esparza's opinion on diet * VTE prophylaxis with Lovenox * CODE STATUS: Full code August 12, 2020 Exacerbation of CHF Patient does not have cholecystitis. His symptoms are likely secondary to CHF exacerbation. Continue medical care as per hospitalist. Please call me with any surgical questions.
[2020-08-13] MEDS: Simvastatin 10 MG Tab PO SCH (20:45)
[2020-08-14] MEDS ORDERED: Furosemide 40 MG Tab PO SCH (07:00)
[2020-08-14] MEDS: Cholecalciferol (Vitamin D3) 5,000 UNIT Cap PO SCH (08:51)
[2020-08-14] MEDS: Metoprolol Succinate 25 MG Tab.ER PO SCH (08:51)
[2020-08-14] MEDS: Enoxaparin 40 MG/0.4 ML Syringe SUBCUT SCH (08:52)
[2020-08-14 08:53] VITALS: BP 130/87; PULSE 85
[2020-08-14] MEDS ORDERED: Potassium Chloride 20 MEQ Tab.ER PO SCH (09:00)
[2020-08-14] MEDS ORDERED: Lisinopril 5 MG Tab PO SCH (09:00)
--- NOTE | 2020-08-14 10:45 | PCM.DCSUM1 ---
Discharge Summary - Hospital Course HPI Initial Comments: 54-year-old male with 1 week history of nausea, vomiting, and abdominal cramping presents to the emergency department with increasing weakness. Patient states that he has had diarrhea 4-5 times a day for the last 4 days. He has not taken any of his heart medication, patient has a history of CHF, for the last 7 days. Patient denies any fever, chills, chest pain, or back pain. In the emergency department patient was found to have only a mildly elevated WBC of 11.7 but did have significant elevation in his liver enzymes including a bilirubin of 1.8, AST of 273, ALT 657, alkaline phosphatase of 161. Fortunately his albumin was at the lower limit of normal at 3.4. CT of the abdomen showed inflammatory changes around both kidneys. Uncertain if this is old or acute. Heart was enlarged. Otherwise nothing acute. Ultrasound was done because of the elevated liver enzymes and findings were consistent with acalculus cholecystitis. The gallbladder was thickened with pericholecystic fluid. Minimal sludge with no definite gallstones being seen. Dr. Esparza in surgery was consulted and he recommended patient be admitted on Zosyn with plans on doing a cholecystectomy in the future. Unfortunately, because the patient has significant heart disease and CHF from an abdominal infection 4 years ago according to the patient, now has fluid overload and exacerbation of CHF secondary to not being able to take his cardiac medications. Patient has not been keeping down fluids, but without his medications his proBNP is up to 15,785. Troponin I was elevated at 0.277. His social group worker was contacted by the emergency department provider who stated we needed to stop the fluids because of his heart failure and start him on Lasix. Patient's lactic acid also in the emergency department was only 2.2. Chest x- ray did show findings compatible with mild CHF. Assessment 54-year-old male with history of CHF, COPD, asthma, automatic implantable cardioverter defibrillator, partial colectomy in 2013 secondary to unknown infected cyst, presents the emergency department with 7-day history of nausea, vomiting, and diarrhea. Patient has been unable to take his medications, therefore he is in acute exacerbation of heart failure. Patient was diagnosed with acalculous cholecystitis and Dr. Esparza recommended admission with plans on cholecystectomy in the future. Exacerbation of CHF * BNP 15,785 and troponin of 0.27 * Elevated troponin likely secondary to strain from worsening CHF and renal insufficiency. Unlikely that this is true injury from ischemic disease. * Unable to take his Lasix, lisinopril, metoprolol, or digoxin over the last 7 days * Given Lasix 40 mg IV in the emergency department Acalculous cholecystitis * Ultrasound consistent with cholecystitis but no gallstones noted * Dr. Esparza in surgery consulted * 7 days of nausea and vomiting and 4 days of diarrhea * Able to tolerate clear liquids tonight * Possible cholecystectomy * Cholecystitis is primarily an inflammatory process, but secondary infection of the gallbladder can occur as a result of bile stasis. * No significant sign of acute infection Acute on chronic renal insufficiency * Unknown baseline GFR * BUN 29, creatinine 1.5, estimated GFR 49 * Given fluid bolus in emergency department, but social group worker Dr. Garcia recommends fluid restriction and Lasix Anemia * Hemoglobin is 12 * Likely mixed but most likely predominantly anemia of chronic disease Plan * Admit to medical floor * Consult Dr. Esparza * Treat nausea and vomiting so he can take oral medications * IV Lasix 40 mg twice daily * Follow CBC, CMP, mag, and C-reactive protein * Will get anemia panel in the morning * Add procalcitonin * Dr. Esparza recommended Zosyn secondary to the increased risk of infection * Clear liquid diet overnight and then asked Dr. Esparza's opinion on diet * VTE prophylaxis with Lovenox * CODE STATUS: Full code - Mortality Measure Prognosis:: Poor Diagnosis: Stroke: No - Discharge Data Discharge Date: 08/14/20 Discharge Disposition: Home, Self-Care 01 Condition: Good - Referral to Home Health Primary Care Physician: Poppy Trujillo MD - Discharge Diagnosis/Problem(s) (1) CHF exacerbation SNOMED Code(s): 307187664, [id number] ICD Code: I50.9 - HEART FAILURE, UNSPECIFIED Status: Acute Qualifiers: Heart failure type: unspecified Qualified Code(s): I50.9 - Heart failure, unspecified (2) Nonspecific abdominal pain SNOMED Code(s): 506710004 ICD Code: R10.9 - UNSPECIFIED ABDOMINAL PAIN Status: Acute - Patient Summary/Data Consults: Consultations 08/11/20 19:28 Consult to Physician [CONS] Routine 08/12/20 10:33 Consult to Claims Associate [CONS] Routine Hospital Course: AssessmentFebruary 2020 54-year-old male with history of CHF, COPD, asthma, automatic implantable cardioverter defibrillator, partial colectomy in 2013 secondary to unknown infected cyst, presents the emergency department with 7-day history of nausea, vomiting, and diarrhea. Patient has been unable to take his medications, therefore he is in acute exacerbation of heart failure. Patient was diagnosed with acalculous cholecystitis and Dr. Esparza recommended admission with plans on cholecystectomy in the future. Exacerbation of CHF * BNP 15,785 and troponin of 0.27 * Elevated troponin likely secondary to strain from worsening CHF and renal insufficiency. Unlikely that this is true injury from ischemic disease. * Unable to take his Lasix, lisinopril, metoprolol, or digoxin over the last 7 days * Given Lasix 40 mg IV in the emergency department Acalculous cholecystitis * Ultrasound consistent with cholecystitis but no gallstones noted * Dr. Esparza in surgery consulted * 7 days of nausea and vomiting and 4 days of diarrhea * Able to tolerate clear liquids tonight * Possible cholecystectomy * Cholecystitis is primarily an inflammatory process, but secondary infection of the gallbladder can occur as a result of bile stasis. * No significant sign of acute infection Acute on chronic renal insufficiency * Unknown baseline GFR * BUN 29, creatinine 1.5, estimated GFR 49 * Given fluid bolus in emergency department, but social group worker Dr. Garcia recommends fluid restriction and Lasix Anemia * Hemoglobin is 12 * Likely mixed but most likely predominantly anemia of chronic disease Plan * Admit to medical floor * Consult Dr. Esparza * Treat nausea and vomiting so he can take oral medications * IV Lasix 40 mg twice daily * Follow CBC, CMP, mag, and C-reactive protein * Will get anemia panel in the morning * Add procalcitonin * Dr. Esparza recommended Zosyn secondary to the increased risk of infection * Clear liquid diet overnight and then asked Dr. Esparza's opinion on diet * VTE prophylaxis with Lovenox * CODE STATUS: Full code August 12, 2020 Exacerbation of CHF Acute renal insufficiency * Patient continues have elevated liver enzymes, but somewhat better. He has had a 9 pound weight loss since admission but minimal negative fluid output of just over 300 mL. * Currently on Lasix 40 mg twice daily. * Unfortunately this has made his acute on chronic renal sufficiency significantly worse. It appears that his renal insufficiency was very mild in March with a creatinine of 1.1 and estimated GFR greater than 60. * Echocardiogram done today showed: * 1. Left ventricular ejection fraction, by visual estimation, is 15 to 20%. * 2. Severely decreased left ventricular systolic function. * 3. Elevated mean left atrial pressure. * 4. Normal right ventricular systolic function. * 5. No aortic valve stenosis. * 6. Moderate mitral valve regurgitation. * 7. Mild tricuspid valve regurgitation. * 8. The right ventricular systolic pressure is moderately elevated at 53.4 mmHg. * 9. A pacer wire is visualized in the right ventricle. Acalculous cholecystitis * Liver enzymes continue to be elevated with AST of 245, ALT of 617, alk phos of 95 And total bilirubin of 1.3. These are all mildly improved. * C-reactive protein is down to 4.2 and white count is down to 9.22. * Dr. Esparza is following with patient. * Continue on Zosyn. * Patient had a significantly worsening of symptoms including right upper quadrant pain after a moderately high fat meal of eggs, ham, and cheese Anemia * Mildly reduced iron with reduced percent saturation. Vitamin B12 and folate are normal. Vitamin D deficiency * vitamin D is significantly reduced at 16.3 Plan * HIDA scan tomorrow morning. N.p.o. after midnight. * Dietary consult * Continue Lasix 40 mg IV twice daily * Follow I's and O's and daily weights. * If HIDA scan is positive and patient will need surgery of some sort this is not an appropriate venue for this patient due to his severe heart disease. * Continue following liver enzymes closely. * Continue Zosyn. August 13, 2020 Patient initially this morning felt poorly with abdominal pain, but when I saw him after eating lunch at noon he was feeling much better. He was having pain during the HIDA scan, but after lunch he was not having any significant pain. He did have some right upper quadrant tenderness but it seemed more mild. Also, he has had a good 12 pound weight loss and kidney function has worsened consistent with diuresis. Also, liver function tests are improving. Acute viral panel has not returned. We will get specific hepatitis A, B, and C screening if it is available at our hospital and not a send out. Hold Lasix today because of overdiuresis. Started on vitamin D3 10,000 units daily. Patient may need an upper endoscopy as an outpatient, but will let Dr. Esparza decide if that is appropriate or not. Because kidney function is significantly worse today we will hold diuretics. Negative fluid balance of 3000 mL 12 pound weight loss. Patient also was found to have hypokalemia with potassium of 3.2. We tried to infuse it IV because he was n.p.o. this morning, but he did not tolerate IV potassium. Patient will be given 40 mEq of p.o. potassium. Plan discharge tomorrow pending improvement in renal function. August 14ay of discharge Patient was doing much better this morning. He states he has only a mild soreness in the right upper quadrant. His kidney function improved with creatinine dropping back down to 1.5. AST ALT and alk phos were all improved at 59, 332, and 77 respectively. Hepatitis C was negative. Albumin was 2.9. Patient was restarted on his home medications and discharged. This occurrence of heart failure appears to be secondary to nausea and vomiting of unknown cause that led to him not being able to take his medications. - Patient Instructions Diet: Heart Healthy Diet Activity: As Tolerated Driving: Do Not Drive Showering/Bathing: May Shower Notify Provider of: Nausea and/or Vomiting Other/Special Instructions: Please follow-up with your primary care provider within the next week and your social group worker within 2 weeks. Please note that your ejection fraction has significantly decreased to 15 to 20% - Discharge Plan *PRESCRIPTION DRUG MONITORING PROGRAM REVIEWED*: No *COPY OF PRESCRIPTION DRUG MONITORING REPORT IN PATIENT [place]REG[place]: No Prescriptions/Med Rec: Nicotine [Nicotine Patch] 21 mg TD DAILY #30 patch Cholecalciferol (Vitamin D3) [Vitamin D3] 5,000 unit PO DAILY #30 cap Home Medications: Home Meds Albuterol Sulfate [Proair Hfa] 2 puff INH TID PRN 07/02/18 [History] Furosemide [Lasix] 40 mg PO BID 07/02/18 [History] Lisinopril 5 mg PO BID 07/02/18 [History] Potassium Chloride [K-Tab ER] 20 meq PO DAILY 07/02/18 [History] atorvaSTATin [Lipitor] 10 mg PO BEDTIME 07/02/18 [History] Digoxin 250 mcg PO DAILY 08/11/20 [History] Metoprolol Succinate 25 mg PO BID 08/11/20 [History] Cholecalciferol (Vitamin D3) [Vitamin D3] 5,000 unit PO DAILY #30 cap 08/14/20 [Rx] Nicotine [Nicotine Patch] 21 mg TD DAILY #30 patch 08/14/20 [Rx] Patient Handouts: Heart Failure, Self Care, Sepsis, Diagnosis, Adult, Living With Heart Failure, Cholecystitis, Steps to Quit Smoking, Heart Failure Eating Plan Forms: ED Department Discharge Referrals: Poppy Trujillo MD [Primary Care Provider] - 08/18/20 2:00 pm (Hospital follow-up appointment. If desired, discuss hyperkinetic gallbladder treatment options with your primary care physician (your gallbladder ejection fraction is 81%).) - Discharge Summary/Plan Comment DC Time >30 min.: Yes - General Info Date of Service: 08/14/20 Admission Dx/Problem (Free Text: Admission Diagnosis/Problem Admission Diagnosis/Problem Cholecystitis Functional Status: Reports: Pain Controlled - Review of Systems General: Reports: No Symptoms HEENT: Reports: No Symptoms Pulmonary: Reports: No Symptoms Cardiovascular: Reports: No Symptoms Gastrointestinal: Reports: Abdominal Pain (Mild right upper quadrant discomfort) Genitourinary: Reports: No Symptoms Neurological: Reports: No Symptoms - Patient Data Vitals - Most Recent: Last Vital Signs Temp 98.2 F 08/14/20 03:46 Pulse 85 08/14/20 08:51 Resp 16 08/14/20 03:46 BP 130/87 08/14/20 08:52 Pulse Ox 95 08/14/20 03:46 Weight - Most Recent: 166 lb 9.6 oz I&O - Last 24 hours: Intake & Output 08/13/20 08/14/20 08/14/20 22:59 06:59 14:59 Intake Total 1740 800 440 Output Total 200 Balance 1540 800 440 Lab Results - Last 24 hrs: Laboratory Results - last 24 hr 08/12/20 08/13/20 08/14/20 Range/Units 13:00 04:46 04:33 WBC 9.25 H (4.23-9.07) K/mm3 RBC 4.01 L (4.63-6.08) M/mm3 Hgb 11.4 L (13.7-17.5) gm/dl Hct 37.9 L (40.1-51.0) % MCV 94.5 H (79.0-92.2) fl MCH 28.4 (25.7-32.2) pg MCHC 30.1 L (32.2-35.5) g/dl RDW Std Deviation 54.5 H (35.1-43.9) fL Plt Count 337 (163-337) K/mm3 MPV 9.0 L (9.4-12.3) fl Neut % (Auto) 61.5 (34.0-67.9) % Lymph % (Auto) 23.6 (21.8-53.1) % [place] % (Auto) 9.8 (5.3-12.2) % Eos % (Auto) 4.8 (0.8-7.0) Baso % (Auto) 0.2 (0.1-1.2) % Neut # (Auto) 5.69 H (1.78-5.38) K/mm3 Lymph # (Auto) 2.18 (1.32-3.57) K/mm3 [place] # (Auto) 0.91 H (0.30-0.82) K/mm3 Eos # (Auto) 0.44 (0.04-0.54) K/mm3 Baso # (Auto) 0.02 (0.01-0.08) K/mm3 Manual Slide Review Abnormal smear Sodium (136-145) mEq/L Potassium (3.5-5.1) mEq/L Chloride (98-107) mEq/L Carbon Dioxide (21-32) mEq/L Anion Gap (5-15) BUN (7-18) mg/dL Creatinine (0.7-1.3) mg/dL Est Cr Clr Drug Dosing mL/min Estimated GFR (MDRD) (>60) mL/min BUN/Creatinine Ratio (14-18) Glucose (74-106) mg/dL Calcium (8.5-10.1) mg/dL Magnesium (1.8-2.4) mg/dl Total Bilirubin (0.2-1.0) mg/dL AST (15-37) U/L ALT (16-63) U/L Alkaline Phosphatase (46-116) U/L C-Reactive Protein (<1.0) mg/dL Total Protein (6.4-8.2) g/dl Albumin (3.4-5.0) g/dl Globulin gm/dL Albumin/Globulin Ratio (1-2) Hep Bs Antigen Nonreactive (NONREACTIVE) Hepatitis C Antibody Negative (NEGATIVE) 08/14/20 Range/Units 04:33 WBC (4.23-9.07) K/mm3 RBC (4.63-6.08) M/mm3 Hgb (13.7-17.5) gm/dl Hct (40.1-51.0) % MCV (79.0-92.2) fl MCH (25.7-32.2) pg MCHC (32.2-35.5) g/dl RDW Std Deviation (35.1-43.9) fL Plt Count (163-337) K/mm3 MPV (9.4-12.3) fl Neut % (Auto) (34.0-67.9) % Lymph % (Auto) (21.8-53.1) % [place] % (Auto) (5.3-12.2) % Eos % (Auto) (0.8-7.0) Baso % (Auto) (0.1-1.2) % Neut # (Auto) (1.78-5.38) K/mm3 Lymph # (Auto) (1.32-3.57) K/mm3 [place] # (Auto) (0.30-0.82) K/mm3 Eos # (Auto) (0.04-0.54) K/mm3 Baso # (Auto) (0.01-0.08) K/mm3 Manual Slide Review Sodium 139 (136-145) mEq/L Potassium 3.5 (3.5-5.1) mEq/L Chloride 101 (98-107) mEq/L Carbon Dioxide 27 (21-32) mEq/L Anion Gap 14.5 (5-15) BUN 28 H (7-18) mg/dL Creatinine 1.5 H (0.7-1.3) mg/dL Est Cr Clr Drug Dosing 52.64 mL/min Estimated GFR (MDRD) 49 (>60) mL/min BUN/Creatinine Ratio 18.7 H (14-18) Glucose 98 (74-106) mg/dL Calcium 8.0 L (8.5-10.1) mg/dL Magnesium 2.3 (1.8-2.4) mg/dl Total Bilirubin 0.5 (0.2-1.0) mg/dL AST 59 H (15-37) U/L ALT 332 H (16-63) U/L Alkaline Phosphatase 77 (46-116) U/L C-Reactive Protein 2.0 H* (<1.0) mg/dL Total Protein 6.1 L (6.4-8.2) g/dl Albumin 2.9 L (3.4-5.0) g/dl Globulin 3.2 gm/dL Albumin/Globulin Ratio 0.9 L (1-2) Hep Bs Antigen (NONREACTIVE) Hepatitis C Antibody (NEGATIVE) PRAKASH Results - Last 24 hrs: Microbiology 08/11/20 14:41 Aerobic Blood Culture - Preliminary Blood - Venous - Lab Draw NO GROWTH AFTER 2 DAYS Anaerobic Blood Culture - Preliminary NO GROWTH AFTER 2 DAYS 08/11/20 14:36 Aerobic Blood Culture - Preliminary Blood - Venous NO GROWTH AFTER 2 DAYS Anaerobic Blood Culture - Preliminary NO GROWTH AFTER 2 DAYS Med Orders - Current: Current Medications Acetaminophen (Tylenol) 650 mg PO Q4H PRN PRN Reason: Pain (Mild 1-3)/fever Last Admin: 08/12/20 20:09 Dose: 650 mg Documented by: Albuterol (Proventil Hfa) 0 gm INH TID PRN PRN Reason: Shortness of Breath Cholecalciferol (Vitamin D3) 10,000 unit PO DAILY [facility] Last Admin: 08/14/20 08:51 Dose: 10,000 unit Documented by: Digoxin (Lanoxin) 250 mcg PO DAILY@1200 [facility] Last Admin: 08/13/20 11:34 Dose: 250 mcg Documented by: Enoxaparin Sodium (Lovenox) 40 mg SUBCUT DAILY [facility] Last Admin: 08/14/20 08:52 Dose: 40 mg Documented by: Furosemide (Lasix) 40 mg PO BIDDIURETIC [facility] Last Admin: 08/14/20 07:04 Dose: 40 mg Documented by: Hydromorphone HCl (Dilaudid) 0.5 mg IVPUSH Q2H PRN PRN Reason: Pain (severe 7-10) Last Admin: 08/12/20 09:59 Dose: 0.5 mg Documented by: Lisinopril (Prinivil) 5 mg PO BID [facility] Last Admin: 08/14/20 08:52 Dose: 5 mg Documented by: Metoprolol Succinate (Toprol Xl) 25 mg PO BID [facility] Last Admin: 08/14/20 08:51 Dose: 25 mg Documented by: Ondansetron HCl (Zofran) 4 mg IV Q4H PRN PRN Reason: Nausea/Vomiting Last Admin: 08/12/20 18:26 Dose: 4 mg Documented by: Oxycodone HCl (Oxycodone) 5 mg PO Q4H PRN PRN Reason: Abdominal Pain Last Admin: 08/12/20 20:08 Dose: 5 mg Documented by: Potassium Chloride (Klor-Con M20) 20 meq PO DAILY [facility] Last Admin: 08/14/20 08:52 Dose: 20 meq Documented by: Simvastatin (Zocor) 10 mg PO BEDTIME [facility] Last Admin: 08/13/20 20:45 Dose: 10 mg Documented by: Sodium Chloride (Saline Flush) 10 ml FLUSH ASDIRECTED PRN PRN Reason: Keep Vein Open Last Admin: 08/11/20 13:56 Dose: 10 ml Documented by: Discontinued Medications Albuterol/Ipratropium (Duoneb 3.0-0.5 Mg/3 Ml) 3 ml NEB ONETIME ONE Stop: 08/11/20 15:14 Last Admin: 08/11/20 15:22 Dose: 3 ml Documented by: Furosemide (Lasix) 40 mg IVPUSH ONETIME ONE Stop: 08/12/20 15:46 Furosemide (Lasix) 40 mg IVPUSH ONETIME ONE Stop: 08/11/20 15:46 Last Admin: 08/11/20 16:13 Dose: 40 mg Documented by: Furosemide (Lasix) 40 mg IVPUSH BIDDIURETIC [facility] Stop: 08/13/20 16:00 Last Admin: 08/13/20 15:31 Dose: Not Given Documented by: Hydromorphone HCl (Dilaudid) 0.5 mg IVPUSH ONETIME ONE Stop: 08/11/20 15:21 Last Admin: 08/11/20 15:36 Dose: 0.5 mg Documented by: Hydromorphone HCl (Dilaudid) 0.5 mg IVPUSH ONETIME ONE Stop: 08/11/20 16:53 Last Admin: 08/11/20 16:58 Dose: 0.5 mg Documented by: Sodium Chloride (Normal Saline) 1,000 mls @ 100 mls/hr IV NOW STA Stop: 08/11/20 23:23 Last Admin: 08/11/20 13:56 Dose: 100 mls/hr Documented by: Sodium Chloride (Normal Saline) 500 mls @ 999 mls/hr IV NOW STA Stop: 08/11/20 14:39 Last Admin: 08/11/20 15:47 Dose: Not Given Documented by: Piperacillin Sod/Tazobactam (Sod 4.5 gm/ Sodium Chloride) 100 mls @ 200 mls/hr IV ONETIME ONE Stop: 08/11/20 17:09 Last Admin: 08/11/20 17:00 Dose: 200 mls/hr Documented by: Piperacillin Sod/Tazobactam (Sod 4.5 gm/ Sodium Chloride) 100 mls @ 25 mls/hr IV Q8H [facility] Last Admin: 08/13/20 11:34 Dose: 25 mls/hr Documented by: Potassium Chloride 10 meq/ (Premix) 100 mls @ 100 mls/hr IV Q1H [facility] Stop: 08/13/20 11:59 Last Admin: 08/13/20 11:42 Dose: Not Given Documented by: Iopamidol (Isovue-300 (61%)) 100 ml IVPUSH ONETIME ONE Stop: 08/11/20 13:35 Last Admin: 08/11/20 14:01 Dose: 100 ml Documented by: Ondansetron HCl (Zofran) 4 mg IVPUSH ONETIME ONE Stop: 08/11/20 13:25 Last Admin: 08/11/20 13:56 Dose: 4 mg Documented by: Piperacillin Sod/Tazobactam Sod (Piperacil-Tazobact) Confirm Administered Dose 4.5 gm .ROUTE .STK-MED ONE Stop: 08/13/20 04:22 Last Admin: 08/13/20 04:30 Dose: Not Given Documented by: Potassium Chloride (Klor-Con M20) 40 meq PO ONETIME ONE Stop: 08/13/20 15:31 Last Admin: 08/13/20 15:25 Dose: 40 meq Documented by: Sodium Chloride (Saline Flush) 10 ml FLUSH ONETIME PRN PRN Reason: IV FLUSH Last Admin: 08/11/20 14:01 Dose: 10 ml Documented by: - Exam Quality Assessment: Denies: Supplemental Oxygen General: Reports: Alert, Oriented HEENT: Reports: Pupils Equal, Mucous Membr. Moist/[place]: Reports: Supple Lungs: Reports: Normal Respiratory Effort, Rales Cardiovascular: Reports: Regular Rate GI/Abdominal Exam: Normal Bowel Sounds, Tender (Right upper quadrant) Extremities: Normal Inspection, Normal Range of Motion, Non-Tender, No Pedal Edema, Normal Capillary Refill Neurological: Reports: No New Focal Deficit
== END 2020-08-14 11:44 | disposition home or self-care (01) | DRG 444 ==
LOC: JD.ED 13:03 → JD.MS 17:07
PROVIDERS: ADMIT Family Medicine; ATTEND Family Medicine
DX: K81.9 Cholecystitis, unspecified (principal); R77.8 Other specified abnormalities of plasma proteins; K81.0 Acute cholecystitis; I50.23 Acute on chronic systolic (congestive) heart failure; N18.9 Chronic kidney disease, unspecified; D63.1 Anemia in chronic kidney disease; E87.6 Hypokalemia; E55.9 Vitamin D deficiency, unspecified; F17.210 Nicotine dependence, cigarettes, uncomplicated; J44.9 Chronic obstructive pulmonary disease, unspecified; Z20.822 Contact with and (suspected) exposure to COVID-19; Z91.013 Allergy to seafood; Z88.5 Allergy status to narcotic agent; Z79.899 Other long term (current) drug therapy; Z95.810 Presence of automatic (implantable) cardiac defibrillator
CPT/HCPCS: 36415; 71046; 74177; 76705; 80053; 81001; 83605; 83690; 83735; 83880; 84145; 84484 ×2; 85025; 86140; 87040 ×2; 87635; 93005; 94640; J1170 ×2; J1940; J2405; J2543; J7030; Q9967; 78227; 78227-26; 82306; 82607; 82746; 83540; 84132; 84466; 86803; 87340; 93010; 93306; 94761; 99223; 99233; 99239; 99285; A9270-GY; A9537; J1650; J3480; J7620-GY; U0002

== ENCOUNTER 2020-09-10 11:05 | Emergency (ER) | payer OTHER ==
[2020-09-10] MEDS ORDERED: Sodium Chloride 0.9% 10 ML Syringe FLUSH PRN (11:34)
[2020-09-10] MEDS ORDERED: Sodium Chloride 0.9% 1,000 ML IV SCH (11:45)
[2020-09-10] MEDS ORDERED: Ondansetron 4 MG/2 ML SDV IVPUSH ONE (11:48)
[2020-09-10] MEDS ORDERED: HYDROmorphone 1 MG/ML Syringe IVPUSH ONE (11:48)
--- NOTE | 2020-09-10 11:58 | EDM.PDOC ---
ED HPI GENERAL MEDICAL PROBLEM - General Chief Complaint: Abdominal Pain Stated Complaint: ABD PAIN/UNABLE TO EAT Time Seen by Provider: 09/10/20 11:25 Source of Information: Reports: Patient History Limitations: Reports: No Limitations - History of Present Illness INITIAL COMMENTS - FREE TEXT/NARRATIVE: The patient presents with abdominal pain, nausea, and vomiting This has been going on for about 2 months. In the first part of September, he was admitted here for this and CHF exacerbation. They thought his gallbladder could be the problem but his EF was 81%. He followed up with the [facility] and they sent him to [facility] and he was admitted there. They worried more about his heart according to him and did not address his abdominal pain. He has a history of a bowel infection in 2012 where he had to have surgery and 6 inches of his colon was removed. He had an infection at that time and that affected his heart. He has a bad heart since then with a very low EF of about 15-20%. He was feeling good for a few days and the pain came back worse. For the past few days everything he eats comes right back up. He has not been able to take his medications. He does take lasix but he has not been able to take that. Onset: Gradual Duration: Week(s): Location: Reports: Abdomen Quality: Reports: Sharp Severity: Severe Improves with: Reports: None Worsens with: Reports: None Associated Symptoms: Reports: Nausea/Vomiting. Denies: Chest Pain, Cough, Fever/Chills, Headaches, Shortness of Breath Middle Abdomen Pain Score (Numeric/FACES): 8 - Related Data Allergies Allergy/AdvReac Type Severity Reaction Status Date / Time shellfish derived Allergy Severe Hives Verified 09/10/20 11:20 codeine AdvReac Severe Hyperactivi Verified 09/10/20 11:20 ty Home Meds: Home Meds Albuterol Sulfate [Proair Hfa] 2 puff INH TID PRN 07/02/18 [History] Furosemide [Lasix] 40 mg PO BID 07/02/18 [History] Lisinopril 5 mg PO BID 07/02/18 [History] Potassium Chloride [K-Tab ER] 20 meq PO DAILY 07/02/18 [History] atorvaSTATin [Lipitor] 10 mg PO BEDTIME 07/02/18 [History] Digoxin 250 mcg PO DAILY 08/11/20 [History] Metoprolol Succinate 25 mg PO BID 08/11/20 [History] Cholecalciferol (Vitamin D3) [Vitamin D3] 5,000 unit PO DAILY #30 cap 08/14/20 [Rx] Nicotine [Nicotine Patch] 21 mg TD DAILY #30 patch 08/14/20 [Rx] Past Medical History Cardiovascular History: Reports: Automatic Implantable Cardioverter Defibrillators, Heart Failure, High Cholesterol, Hypertension, [place], SOB on Exertion Respiratory History: Reports: Asthma, COPD, SOB Genitourinary History: Reports: Retention, Urinary Psychiatric History: Reports: Anxiety Endocrine/Metabolic History: Reports: Vitamin D Deficiency - Infectious Disease History Infectious Disease History: Reports: Chicken Pox, Measles, Mumps - Past Surgical History Cardiovascular Surgical History: Reports: AICD Other GI Surgeries/Procedures: 6 inches of colon removed in 2013 Musculoskeletal Surgical History: Reports: Amputation, Other (See Below) Other Musculoskeletal Surgeries/Procedures:: Tip of finger amputated. Social & Family History - Family History Family Medical History: No Pertinent Family History - Tobacco Use Tobacco Use Status *Q: Current Every Day Tobacco User Years of Tobacco use: 40 Packs/Tins Daily: 0.5 - Caffeine Use Caffeine Use: Reports: Soda - Recreational Drug Use Recreational Drug Use: No ED ROS GENERAL - Review of Systems Review Of Systems: See Below Constitutional: Reports: No Symptoms HEENT: Reports: No Symptoms Respiratory: Reports: No Symptoms Cardiovascular: Reports: No Symptoms Endocrine: Reports: No Symptoms GI/Abdominal: Reports: Abdominal Pain. Denies: Nausea, Vomiting : Reports: No Symptoms Musculoskeletal: Reports: No Symptoms ED EXAM, GI/ABD - Physical Exam Exam: See Below Exam Limited By: No Limitations General Appearance: Alert, No Apparent Distress Ears: Normal External Exam Nose: Normal Inspection Head: Atraumatic, Normocephalic Neck: Normal Inspection Respiratory/Chest: No Respiratory Distress, Lungs Clear, Normal Breath Sounds Cardiovascular: Regular Rate, Rhythm, No Edema, No Murmur GI/Abdominal Exam: Soft, No Organomegaly, No Mass, Tender (Moderate mid abdominal pain tenderness) Course - Vital Signs Last Recorded V/S: Last Vital Signs Temp 96.8 F L 09/10/20 11:16 Pulse 103 H 09/10/20 14:29 Resp 16 09/10/20 14:29 BP 135/93 H 09/10/20 14:29 Pulse Ox 96 09/10/20 14:29 - Orders/Labs/Meds Orders: Active Orders 24 hr Category Date Time Status Peripheral IV Care [RC] . DIRECTED Care 09/10/20 11:35 Active Sodium Chloride 0.9% [Normal Saline] 1,000 ml Med 09/10/20 11:45 Active IV ASDIRECTED Sodium Chloride 0.9% [Saline Flush] Med 09/10/20 11:34 Active 10 ml FLUSH ASDIRECTED PRN ED Antiemetic Medication Reflex [OM.PC] Stat Oth 09/10/20 11:34 Ordered Peripheral IV Insertion Adult [OM.PC] Stat Oth 09/10/20 11:34 Ordered Medication Orders Sodium Chloride (Normal Saline) 1,000 mls @ 125 mls/hr IV ASDIRECTED REGINE Last Admin: 09/10/20 11:43 Dose: 125 mls/hr Documented by: KANE Sodium Chloride (Saline Flush) 10 ml FLUSH ASDIRECTED PRN PRN Reason: Keep Vein Open Last Admin: 09/10/20 11:43 Dose: 10 ml Documented by: KANE Labs: Laboratory Tests 09/10/20 09/10/20 09/10/20 Range/Units 11:34 11:48 11:48 WBC 8.87 (4.23-9.07) K/mm3 RBC 4.18 L (4.63-6.08) M/mm3 Hgb 11.5 L (13.7-17.5) gm/dl Hct 38.0 L (40.1-51.0) % MCV 90.9 D (79.0-92.2) fl MCH 27.5 (25.7-32.2) pg MCHC 30.3 L (32.2-35.5) g/dl RDW Std Deviation 53.0 H (35.1-43.9) fL Plt Count 388 H (163-337) K/mm3 MPV 8.4 L (9.4-12.3) fl Neut % (Auto) 71.9 H (34.0-67.9) % Lymph % (Auto) 19.7 L (21.8-53.1) % [place] % (Auto) 6.5 (5.3-12.2) % Eos % (Auto) 1.6 (0.8-7.0) Baso % (Auto) 0.2 (0.1-1.2) % Neut # (Auto) 6.37 H (1.78-5.38) K/mm3 Lymph # (Auto) 1.75 (1.32-3.57) K/mm3 [place] # (Auto) 0.58 (0.30-0.82) K/mm3 Eos # (Auto) 0.14 (0.04-0.54) K/mm3 Baso # (Auto) 0.02 (0.01-0.08) K/mm3 Manual Slide Review Abnormal smear Sodium 136 (136-145) mEq/L Potassium 4.8 (3.5-5.1) mEq/L Chloride 101 (98-107) mEq/L Carbon Dioxide 26 (21-32) mEq/L Anion Gap 13.8 (5-15) BUN 21 H (7-18) mg/dL Creatinine 1.5 H (0.7-1.3) mg/dL Est Cr Clr Drug Dosing 50.80 mL/min Estimated GFR (MDRD) 49 (>60) mL/min BUN/Creatinine Ratio 14.0 (14-18) Glucose 92 (74-106) mg/dL Lactic Acid (0.4-2.0) mmol/L Calcium 8.9 (8.5-10.1) mg/dL Magnesium 2.3 (1.8-2.4) mg/dl Total Bilirubin 1.5 H (0.2-1.0) mg/dL AST 57 H (15-37) U/L ALT 67 H (16-63) U/L Alkaline Phosphatase 63 (46-116) U/L Troponin I 0.122 H* (0.00-0.056) ng/mL NT-Pro-B Natriuret Pep (0-125) pg/mL Total Protein 6.9 (6.4-8.2) g/dl Albumin 3.3 L (3.4-5.0) g/dl Globulin 3.6 gm/dL Albumin/Globulin Ratio 0.9 L (1-2) Lipase 102 (73-393) U/L Urine Color Yellow (Yellow) Urine Appearance Clear (Clear) Urine pH 5.5 (5.0-8.0) Ur Specific [place] > or = 1.030 (1.005-1.030) Urine Protein 1+ H (Negative) Urine Glucose (UA) Negative (Negative) Urine Ketones Negative (Negative) Urine Occult Blood Negative (Negative) Urine Nitrite Negative (Negative) Urine Bilirubin 1+ H (Negative) Urine Urobilinogen 0.2 (0.2-1.0) Ur Leukocyte Esterase Negative (Negative) Urine RBC 0-5 (0-5) /hpf Urine WBC 0-5 (0-5) /hpf Ur Squamous Epith Cells 0-5 (0-5) /hpf Urine Bacteria Few (FEW) /hpf Urine Mucus Few (FEW) /hpf 09/10/20 09/10/20 Range/Units 11:48 11:48 WBC (4.23-9.07) K/mm3 RBC (4.63-6.08) M/mm3 Hgb (13.7-17.5) gm/dl Hct (40.1-51.0) % MCV (79.0-92.2) fl MCH (25.7-32.2) pg MCHC (32.2-35.5) g/dl RDW Std Deviation (35.1-43.9) fL Plt Count (163-337) K/mm3 MPV (9.4-12.3) fl Neut % (Auto) (34.0-67.9) % Lymph % (Auto) (21.8-53.1) % [place] % (Auto) (5.3-12.2) % Eos % (Auto) (0.8-7.0) Baso % (Auto) (0.1-1.2) % Neut # (Auto) (1.78-5.38) K/mm3 Lymph # (Auto) (1.32-3.57) K/mm3 [place] # (Auto) (0.30-0.82) K/mm3 Eos # (Auto) (0.04-0.54) K/mm3 Baso # (Auto) (0.01-0.08) K/mm3 Manual Slide Review Sodium (136-145) mEq/L Potassium (3.5-5.1) mEq/L Chloride (98-107) mEq/L Carbon Dioxide (21-32) mEq/L Anion Gap (5-15) BUN (7-18) mg/dL Creatinine (0.7-1.3) mg/dL Est Cr Clr Drug Dosing mL/min Estimated GFR (MDRD) (>60) mL/min BUN/Creatinine Ratio (14-18) Glucose (74-106) mg/dL Lactic Acid 2.0 (0.4-2.0) mmol/L Calcium (8.5-10.1) mg/dL Magnesium (1.8-2.4) mg/dl Total Bilirubin (0.2-1.0) mg/dL AST (15-37) U/L ALT (16-63) U/L Alkaline Phosphatase (46-116) U/L Troponin I (0.00-0.056) ng/mL NT-Pro-B Natriuret Pep 50735 H (0-125) pg/mL Total Protein (6.4-8.2) g/dl Albumin (3.4-5.0) g/dl Globulin gm/dL Albumin/Globulin Ratio (1-2) Lipase (73-393) U/L Urine Color (Yellow) Urine Appearance (Clear) Urine pH (5.0-8.0) Ur Specific [place] (1.005-1.030) Urine Protein (Negative) Urine Glucose (UA) (Negative) Urine Ketones (Negative) Urine Occult Blood (Negative) Urine Nitrite (Negative) Urine Bilirubin (Negative) Urine Urobilinogen (0.2-1.0) Ur Leukocyte Esterase (Negative) Urine RBC (0-5) /hpf Urine WBC (0-5) /hpf Ur Squamous Epith Cells (0-5) /hpf Urine Bacteria (FEW) /hpf Urine Mucus (FEW) /hpf Meds: Medications Generic Name Dose Route Start Last Admin Trade Name Freq PRN Reason Stop Dose Admin Sodium Chloride 1,000 mls @ 125 mls/hr 09/10/20 11:45 09/10/20 11:43 Normal Saline IV 125 mls/hr ASDIRECTED REGINE Administration Sodium Chloride 10 ml 09/10/20 11:34 09/10/20 11:43 Saline Flush FLUSH 10 ml ASDIRECTED PRN Administration Keep Vein Open Discontinued Medications Generic Name Dose Route Start Last Admin Trade Name Freq PRN Reason Stop Dose Admin Hydromorphone HCl 1 mg 09/10/20 11:48 09/10/20 11:51 Dilaudid IVPUSH 09/10/20 11:49 1 mg ONETIME ONE Administration Metoclopramide HCl 10 mg 09/10/20 14:22 09/10/20 14:28 Reglan IVPUSH 09/10/20 14:23 10 mg ONETIME ONE Administration Ondansetron HCl 4 mg 09/10/20 11:48 09/10/20 11:51 Zofran IVPUSH 09/10/20 11:49 4 mg ONETIME ONE Administration - Re-Assessments/Exams Free Text/Narrative Re-Assessment/Exam: 09/10/20 12:09 I ordered an IV NS at 125mL/hr, zofran 4mg IV, dilaudid 1mg IV, labs, UA and a CT of his abdomen and pelvis without contrast. He cannot tolerate the contrast and his kidneys were not working so well last time. 09/10/20 15:51 His WBC was normal. His Hgb was low at 11.5. His creatinine was elevated at 1.5. His total bili is elevated at 1.5. His AST is elevated at 57 and ALT is elevated at 67. His troponin is slightly elevated at 0.122. It has been elevated in the past. His BNP is elevated at 17,699. His UA shows no UTI. His CT shows stable cardiomegaly and nothing acute is seen. He feels better but still has some nausea. I gave him reglan 10mg IV. I will discharge him home with some zofran after some fluids. Departure - Departure Time of Disposition: 15:55 Disposition: Admitted As Inpatient 66 Condition: Good Clinical Impression: CHF, Congestive heart failure, Elevated troponin Abdominal pain Qualifiers: Abdominal location: right upper quadrant Qualified Code(s): R10.11 - Right upper quadrant pain - Discharge Information Referrals: Poppy Trujillo MD [Primary Care Provider] - 1 Week Forms: ED Department Discharge Additional Instructions: Take the zofran every 6 hours as needed for nausea and vomiting. Keep taking your medications. Follow up with your doctor. Please return if you are worse. Sepsis Event Note (ED) - Evaluation Sepsis Screening Result: No Definite Risk - Focused Exam Vital Signs: Vital Signs Temp Pulse Resp BP Pulse Ox 09/10/20 14:29 103 H 16 135/93 H 96 09/10/20 11:33 112 H 16 144/99 H 99 09/10/20 11:16 96.8 F L 112 H 20 140/110 H 100 - My Orders Last 24 Hours: My Active Orders 09/10/20 11:34 Sodium Chloride 0.9% [Saline Flush] 10 ml FLUSH ASDIRECTED PRN ED Antiemetic Medication Reflex [OM.PC] Stat Peripheral IV Insertion Adult [OM.PC] Stat 09/10/20 11:35 Peripheral IV Care [RC] . DIRECTED 09/10/20 11:45 Sodium Chloride 0.9% [Normal Saline] 1,000 ml IV ASDIRECTED - Assessment/Plan Last 24 Hours: My Active Orders 09/10/20 11:34 Sodium Chloride 0.9% [Saline Flush] 10 ml FLUSH ASDIRECTED PRN ED Antiemetic Medication Reflex [OM.PC] Stat Peripheral IV Insertion Adult [OM.PC] Stat 09/10/20 11:35 Peripheral IV Care [RC] . DIRECTED 09/10/20 11:45 Sodium Chloride 0.9% [Normal Saline] 1,000 ml IV ASDIRECTED
[2020-09-10] MEDS ORDERED: Metoclopramide 10 MG/2 ML SDV IVPUSH ONE (14:22)
[2020-09-10 14:30] VITALS: BP 135/93; PULSE 103
--- NOTE | 2020-09-10 14:45 | CT ---
CT abdomen and pelvis Technique: Multiple axial sections were obtained from above the dome of the diaphragm inferiorly through the pubic symphysis. Intravenous and oral contrast not utilized. Reconstructed coronal and sagittal images were obtained. Comparison: Prior chest x-ray of 08/11/20. Findings: Heart is enlarged. Visualised lung bases shows nothing acute. Noncontrast appearance of the liver shows several small benign-appearing calcified granulomas. Nothing acute is seen within the liver. Spleen appears within normal limits. Adrenal glands show no nodule. No discrete pancreatic abnormality is seen. Gallbladder contains no calcified gallstones. Kidneys show no abnormal calcifications or hydronephrosis. No ureteral dilatation or ureteral stone is seen. Abdominal aorta shows atherosclerotic calcification which continues into the iliac vessels. No aneurysm is seen. No retroperitoneal adenopathy or mesenteric abnormalities are seen. Appendix is seen which is normal in size. No pelvic mass or adenopathy is seen. Anastomotic sutures are noted at the rectosigmoid junction. No bowel dilatation or bowel wall thickening is appreciated. Bone window settings were reviewed which show severe degenerative change within both hips. Severe disc space narrowing is seen at L5-S1. Impression: 1. Stable cardiomegaly. 2. Other findings as noted above. Nothing acute is seen on noncontrast CT study of the abdomen and pelvis. Diagnostic code #2
== END 2020-09-10 16:20 | disposition critical access hospital (66) ==
LOC: JD.ED 11:05
DX: R10.11 Right upper quadrant pain (principal); I11.0 Hypertensive heart disease with heart failure; I50.9 Heart failure, unspecified; R79.89 Other specified abnormal findings of blood chemistry; I25.2 Old myocardial infarction; E78.00 Pure hypercholesterolemia, unspecified; J44.9 Chronic obstructive pulmonary disease, unspecified; Z72.0 Tobacco use; Z91.013 Allergy to seafood; Z88.5 Allergy status to narcotic agent
CPT/HCPCS: 36415; 74176; 74176-26; 80053; 81001; 83605; 83690; 83735; 83880; 84484; 85025; 96374; 96375; 99284; 99284-25; J1170; J2405; J2765; J7030

== ENCOUNTER 2020-09-12 12:19 | Emergency (ER) | payer OTHER ==
[2020-09-12 12:30] VITALS: PULSE 110
[2020-09-12] MEDS ORDERED: Ondansetron 4 MG/2 ML SDV IVPUSH ONE (13:36)
[2020-09-12] MEDS ORDERED: HYDROmorphone 0.5 MG/0.5 ML Syringe IVPUSH ONE ×3 (13:36→16:24)
[2020-09-12] MEDS ORDERED: Sodium Chloride 0.9% 10 ML Syringe FLUSH PRN (13:36)
--- NOTE | 2020-09-12 13:37 | CR ---
Chest: Portable view of the chest was obtained. Comparison: Prior chest x-rays of 08/11/20 and 07/02/18. Heart is enlarged. No pulmonary vascular congestion is seen at this time. Lungs show no acute parenchymal change. AICD is present. No acute osseous finding is seen. Impression: 1. Stable cardiomegaly. AICD in place. 2. Nothing acute is otherwise seen on portable chest x-ray. Diagnostic code #2
[2020-09-12] MEDS ORDERED: Lactated Ringers 1,000 ML IV SCH (13:45)
--- NOTE | 2020-09-12 13:53 | EDM.PDOC ---
ED HPI GENERAL MEDICAL PROBLEM - General Chief Complaint: Abdominal Pain Stated Complaint: ABDOMINAL PAIN AND UNABLE TO EAT Time Seen by Provider: 09/12/20 13:15 Source of Information: Reports: Patient, Old Records, RN Notes Reviewed - History of Present Illness INITIAL COMMENTS - FREE TEXT/NARRATIVE: 54 yr old male comes in with cough, dyspnea, abd pain, vomiting diarrhea that started about 5 days ago, was seen in the ED 2 days ago and has continued to get worse since going home. He has hx of COPD, CHF and what sounds like bad GB disease. He feels somewhat short of breath but feels that his abd pain is what is making him breath hard and fast. Anything that he tries to eat or drink makes him vomit. He is also having about 4 to 6 loose "greasy" stools per day triggered by attempts to eat or drink. He had an admission to this hospital about a month ago for similar sx. Believed to have alcalculous cholecystitis at that time, GB surgery considered but put off due to concern over cardiac status. Shortly after discharge the [place] [facility] referred him to [facility] for continued sx. Their focus was apparently on his heart. He was discharged home after a short admission several weeks ago. He has continue to not feel well since that discharge with symptoms becoming much worse this past 5 to 7 days. He does continue to smoke. No known fever or chills. Middle Chest Pain Score (Numeric/FACES): 8 - Related Data Allergies Allergy/AdvReac Type Severity Reaction Status Date / Time shellfish derived Allergy Intermediate Hives Verified 09/12/20 12:30 codeine AdvReac Mild Hyperactivi Verified 09/12/20 12:30 ty Home Meds: Home Meds Albuterol Sulfate [Proair Hfa] 2 puff INH TID PRN 07/02/18 [History] Furosemide [Lasix] 40 mg PO BID 07/02/18 [History] Lisinopril 5 mg PO BID 07/02/18 [History] Potassium Chloride [K-Tab ER] 20 meq PO DAILY 07/02/18 [History] atorvaSTATin [Lipitor] 10 mg PO BEDTIME 07/02/18 [History] Digoxin 250 mcg PO DAILY 08/11/20 [History] Metoprolol Succinate 25 mg PO BID 08/11/20 [History] Cholecalciferol (Vitamin D3) [Vitamin D3] 5,000 unit PO DAILY #30 cap 08/14/20 [Rx] Nicotine [Nicotine Patch] 21 mg TD DAILY #30 patch 08/14/20 [Rx] Past Medical History Cardiovascular History: Reports: Automatic Implantable Cardioverter Defibrillators, Heart Failure, High Cholesterol, Hypertension, [place], SOB on Exertion Respiratory History: Reports: Asthma, COPD, SOB Genitourinary History: Reports: Retention, Urinary Psychiatric History: Reports: Anxiety Endocrine/Metabolic History: Reports: Vitamin D Deficiency - Infectious Disease History Infectious Disease History: Reports: Chicken Pox, Measles, Mumps - Past Surgical History Cardiovascular Surgical History: Reports: AICD Other GI Surgeries/Procedures: 6 inches of colon removed in 2013 Musculoskeletal Surgical History: Reports: Amputation, Other (See Below) Other Musculoskeletal Surgeries/Procedures:: Tip of finger amputated. Social & Family History - Family History Family Medical History: No Pertinent Family History - Tobacco Use Tobacco Use Status *Q: Current Every Day Tobacco User Years of Tobacco use: 40 Packs/Tins Daily: 0.3 - Caffeine Use Caffeine Use: Reports: Soda - Recreational Drug Use Recreational Drug Use: No ED ROS GENERAL - Review of Systems Review Of Systems: See Below Constitutional: Denies: Fever, Chills, Diaphoresis HEENT: Reports: No Symptoms Respiratory: Reports: Shortness of Breath, Cough Cardiovascular: Reports: Chest Pain GI/Abdominal: Reports: Abdominal Pain, Diarrhea, Nausea, Vomiting. Denies: Hematochezia, Melena Skin: Denies: Rash Neurological: Reports: Dizziness Psychiatric: Reports: Anxiety ED EXAM, GI/ABD - Physical Exam Exam: See Below General Appearance: Alert, Anxious, Moderate Distress Eyes: Bilateral: Normal Appearance Throat/Mouth: Other (oral mucosa mildly dry) Head: Atraumatic Neck: Supple Respiratory/Chest: Respiratory Distress (mild tachypnea). No: Rhonchi, Wheezing Cardiovascular: Tachycardia GI/Abdominal Exam: Tender (moderate diffuse tenderness) Back Exam: No: CVA Tenderness (L), CVA Tenderness (R) Extremities: No: Leg Pain, Increased Warmth, Redness Neurological: Alert, Oriented, No Motor/Sensory Deficits Skin Exam: Warm, Dry, Normal Color, No Rash #1 Interpretation EKG Date: 09/12/20 Rhythm: NSR [place]: Normal P-Wave: Present QRS: LBBB ST-T: Other (diffuse ST abnormalities) Course - Vital Signs Last Recorded V/S: Last Vital Signs Temp 98.8 F 09/12/20 12:28 Pulse 110 H 09/12/20 12:28 Resp 21 H 09/12/20 12:28 BP Pulse Ox 100 09/12/20 12:28 - Orders/Labs/Meds Orders: Active Orders 24 hr Category Date Time Status Peripheral IV Insertion Adult [OM.PC] Stat Oth 09/12/20 13:36 Ordered EKG 12 Lead [EK] Stat Ther 09/12/20 12:32 Ordered Labs: Laboratory Tests 09/12/20 09/12/20 09/12/20 Range/Units 12:36 12:36 12:36 WBC 10.59 H (4.23-9.07) K/mm3 RBC 4.16 L (4.63-6.08) M/mm3 Hgb 11.5 L (13.7-17.5) gm/dl Hct 38.1 L (40.1-51.0) % MCV 91.6 (79.0-92.2) fl MCH 27.6 (25.7-32.2) pg MCHC 30.2 L (32.2-35.5) g/dl RDW Std Deviation 53.5 H (35.1-43.9) fL Plt Count 353 H (163-337) K/mm3 MPV 9.0 L (9.4-12.3) fl Neut % (Auto) 77.1 H (34.0-67.9) % Lymph % (Auto) 13.8 L (21.8-53.1) % Hendricks % (Auto) 7.2 (5.3-12.2) % Eos % (Auto) 1.5 (0.8-7.0) Baso % (Auto) 0.2 (0.1-1.2) % Neut # (Auto) 8.17 H (1.78-5.38) K/mm3 Lymph # (Auto) 1.46 (1.32-3.57) K/mm3 Hendricks # (Auto) 0.76 (0.30-0.82) K/mm3 Eos # (Auto) 0.16 (0.04-0.54) K/mm3 Baso # (Auto) 0.02 (0.01-0.08) K/mm3 Manual Slide Review Abnormal smear Sodium 135 L (136-145) mEq/L Potassium 4.2 (3.5-5.1) mEq/L Chloride 99 (98-107) mEq/L Carbon Dioxide 25 (21-32) mEq/L Anion Gap 15.2 H (5-15) BUN 20 H (7-18) mg/dL Creatinine 1.5 H (0.7-1.3) mg/dL Est Cr Clr Drug Dosing 50.80 mL/min Estimated GFR (MDRD) 49 (>60) mL/min BUN/Creatinine Ratio 13.3 L (14-18) Glucose 100 (74-106) mg/dL Calcium 8.4 L (8.5-10.1) mg/dL Total Bilirubin 1.1 H (0.2-1.0) mg/dL GGT (15-85) U/L AST 174 H (15-37) U/L ALT 435 H (16-63) U/L Alkaline Phosphatase 89 (46-116) U/L Troponin I 0.266 H* (0.00-0.056) ng/mL C-Reactive Protein 2.6 H* (<1.0) mg/dL NT-Pro-B Natriuret Pep (0-125) pg/mL Total Protein 6.8 (6.4-8.2) g/dl Albumin 3.3 L (3.4-5.0) g/dl Globulin 3.5 gm/dL Albumin/Globulin Ratio 0.9 L (1-2) Lipase (73-393) U/L SARS-CoV-2 RNA (BRIDGETT) (NEGATIVE) 09/12/20 09/12/20 09/12/20 Range/Units 12:36 12:36 12:36 WBC (4.23-9.07) K/mm3 RBC (4.63-6.08) M/mm3 Hgb (13.7-17.5) gm/dl Hct (40.1-51.0) % MCV (79.0-92.2) fl MCH (25.7-32.2) pg MCHC (32.2-35.5) g/dl RDW Std Deviation (35.1-43.9) fL Plt Count (163-337) K/mm3 MPV (9.4-12.3) fl Neut % (Auto) (34.0-67.9) % Lymph % (Auto) (21.8-53.1) % Hendricks % (Auto) (5.3-12.2) % Eos % (Auto) (0.8-7.0) Baso % (Auto) (0.1-1.2) % Neut # (Auto) (1.78-5.38) K/mm3 Lymph # (Auto) (1.32-3.57) K/mm3 Hendricks # (Auto) (0.30-0.82) K/mm3 Eos # (Auto) (0.04-0.54) K/mm3 Baso # (Auto) (0.01-0.08) K/mm3 Manual Slide Review Sodium (136-145) mEq/L Potassium (3.5-5.1) mEq/L Chloride (98-107) mEq/L Carbon Dioxide (21-32) mEq/L Anion Gap (5-15) BUN (7-18) mg/dL Creatinine (0.7-1.3) mg/dL Est Cr Clr Drug Dosing mL/min Estimated GFR (MDRD) (>60) mL/min BUN/Creatinine Ratio (14-18) Glucose (74-106) mg/dL Calcium (8.5-10.1) mg/dL Total Bilirubin (0.2-1.0) mg/dL GGT 114 H (15-85) U/L AST (15-37) U/L ALT (16-63) U/L Alkaline Phosphatase (46-116) U/L Troponin I (0.00-0.056) ng/mL C-Reactive Protein (<1.0) mg/dL NT-Pro-B Natriuret Pep 51189 H (0-125) pg/mL Total Protein (6.4-8.2) g/dl Albumin (3.4-5.0) g/dl Globulin gm/dL Albumin/Globulin Ratio (1-2) Lipase 200 (73-393) U/L SARS-CoV-2 RNA (BRIDGETT) (NEGATIVE) 09/12/20 09/12/20 Range/Units 15:00 15:41 WBC (4.23-9.07) K/mm3 RBC (4.63-6.08) M/mm3 Hgb (13.7-17.5) gm/dl Hct (40.1-51.0) % MCV (79.0-92.2) fl MCH (25.7-32.2) pg MCHC (32.2-35.5) g/dl RDW Std Deviation (35.1-43.9) fL Plt Count (163-337) K/mm3 MPV (9.4-12.3) fl Neut % (Auto) (34.0-67.9) % Lymph % (Auto) (21.8-53.1) % Hendricks % (Auto) (5.3-12.2) % Eos % (Auto) (0.8-7.0) Baso % (Auto) (0.1-1.2) % Neut # (Auto) (1.78-5.38) K/mm3 Lymph # (Auto) (1.32-3.57) K/mm3 Hendricks # (Auto) (0.30-0.82) K/mm3 Eos # (Auto) (0.04-0.54) K/mm3 Baso # (Auto) (0.01-0.08) K/mm3 Manual Slide Review Sodium (136-145) mEq/L Potassium (3.5-5.1) mEq/L Chloride (98-107) mEq/L Carbon Dioxide (21-32) mEq/L Anion Gap (5-15) BUN (7-18) mg/dL Creatinine (0.7-1.3) mg/dL Est Cr Clr Drug Dosing mL/min Estimated GFR (MDRD) (>60) mL/min BUN/Creatinine Ratio (14-18) Glucose (74-106) mg/dL Calcium (8.5-10.1) mg/dL Total Bilirubin (0.2-1.0) mg/dL GGT (15-85) U/L AST (15-37) U/L ALT (16-63) U/L Alkaline Phosphatase (46-116) U/L Troponin I 0.445 H* (0.00-0.056) ng/mL C-Reactive Protein (<1.0) mg/dL NT-Pro-B Natriuret Pep (0-125) pg/mL Total Protein (6.4-8.2) g/dl Albumin (3.4-5.0) g/dl Globulin gm/dL Albumin/Globulin Ratio (1-2) Lipase (73-393) U/L SARS-CoV-2 RNA (BRIDGETT) Negative (NEGATIVE) Meds: Medications Discontinued Medications Generic Name Dose Route Start Last Admin Trade Name Keithq PRN Reason Stop Dose Admin Aspirin 324 mg 09/12/20 16:24 09/12/20 16:50 Aspirin PO 09/12/20 16:25 324 mg ONETIME ONE Administration Hydromorphone HCl 0.5 mg 09/12/20 13:36 09/12/20 13:44 Dilaudid IVPUSH 09/12/20 13:37 0.5 mg ONETIME ONE Administration Hydromorphone HCl 0.5 mg 09/12/20 15:31 09/12/20 15:44 Dilaudid IVPUSH 09/12/20 15:32 0.5 mg ONETIME ONE Administration Hydromorphone HCl 0.5 mg 09/12/20 16:24 09/12/20 16:50 Dilaudid IVPUSH 09/12/20 16:25 0.5 mg ONETIME ONE Administration Lactated Ringer's 1,000 mls @ 75 mls/hr 09/12/20 13:45 09/12/20 13:44 Ringers, Lactated IV 75 mls/hr ASDIRECTED REGINE Administration Ondansetron HCl 4 mg 09/12/20 13:36 09/12/20 13:44 Zofran IVPUSH 09/12/20 13:37 4 mg ONETIME ONE Administration Sodium Chloride 10 ml 09/12/20 13:36 09/12/20 13:44 Saline Flush FLUSH 10 ml ASDIRECTED PRN Administration Keep Vein Open - Re-Assessments/Exams Free Text/Narrative Re-Assessment/Exam: 09/12/20 16:57. Initial trop was 0.26., trop was 1.1 2 days ago. WBC today 10,600, CRP 2.5, Creat 1.5, EGFR about 49, BNP 10,032. Pt is moderately complicated with GI sx continuing for about 6 weeks, 2 hospital admissions, ED visit 2 days ago. Repeat 3 hr trop has almost doubled up to 0.445. We are running out of beds, with his climbing troponin, unresolved GI issues that are now once again worsening will transfer to higher level of care. Dr Lomas, Hospital[facility], accepting provider. Will transfer by ground ambulance. Have given aspirin. I am told by Dr Quiles, [place], [facility] that as she has briefly reviewed his admission 3 wks ago, that he did have a cardiac cath that "showed no blockage" Pt states he had blood in his stool a couple weeks ago. With all of that will not start on IV heparin. Dr Lomas agrees with that plan. I did discuss his abd pain and findings with Dr Matos [employer] systems superintendent for General Surgery. He has done an ED consult. Does not believe he has a surgical abd. at time of his exam. Departure - Departure Time of Disposition: 16:39 Disposition: DC/Tfer to Acute Hospital 02 Condition: Serious Clinical Impression: Elevated troponin Vomiting Qualifiers: Vomiting type: unspecified Vomiting Intractability: non-intractable Nausea presence: with nausea Qualified Code(s): R11.2 - Nausea with vomiting, unspecified Diarrhea Qualifiers: Diarrhea type: unspecified type Qualified Code(s): R19.7 - Diarrhea, unspecified Abdominal pain Qualifiers: Abdominal location: right upper quadrant Qualified Code(s): R10.11 - Right upper quadrant pain Congestive heart failure Qualifiers: Qualified Code(s): I50.9 - Heart failure, unspecified - Discharge Information Referrals: Poppy Trujillo MD [Primary Care Provider] - Forms: ED Department Discharge Sepsis Event Note (ED) - Evaluation Sepsis Screening Result: No Definite Risk - My Orders Last 24 Hours: My Active Orders 09/12/20 12:32 EKG 12 Lead [EK] Stat 09/12/20 13:36 Peripheral IV Insertion Adult [OM.PC] Stat - Assessment/Plan Last 24 Hours: My Active Orders 09/12/20 12:32 EKG 12 Lead [EK] Stat 09/12/20 13:36 Peripheral IV Insertion Adult [OM.PC] Stat
[2020-09-12] MEDS ORDERED: Aspirin 81 MG Tab.Chew PO ONE (16:24)
--- NOTE | 2020-09-12 16:24 | CR ---
Abdomen: Supine and upright views of the abdomen were obtained. Comparison: Prior CT abdomen and pelvis study of 09/10/20. Mildly prominent air-filled loops of small bowel are seen. Colonic gas is also noted. No free air is seen. Heart is enlarged. No abnormal calcifications are noted. Prominent degenerative change is seen within both hips. Impression: 1. Increasing gaseous dilatation of small bowel. Findings are suspicious for either small bowel ileus or developing distal small bowel obstruction. 2. Other findings as noted above. Diagnostic code #3
--- NOTE | 2020-09-12 16:38 | PCM.CONS ---
H&P History of Present Illness - General Date of Service: 09/12/20 Admit Problem/Dx: CHF exacerbation Source of Information: Patient, Old Records, Provider - History of Present Illness Initial Comments - Free Text/Narative: Mr. Mckay is a 54 yo man with chronic medical problems including [place], CHF with marked cardiomegaly and AICD in place, who presents to the ER with abdominal pain. He has had pain like this for months. He was seen in the ER 48 hours ago with the same symptoms. Previously, it appeared on ultrasound that the patient had evidence of acalculous cholecystitis, but HIDA scan was normal. His pain is diffuse. He reports inability to tolerate PO and vomiting for the past 5 days. He is passing flatus and has had non-bloody diarrhea. He reports having part of his colon removed for an "infected cyst/abnormal connection to bladder" but there appears to only be one small scar the size of a laparoscopic port at the suprapubic region. He does not appear to have diverticulitis on CT from two days ago. On exam, he appears very uncomfortable and his abdomen is distended and tympanitic. It is soft, without masses. He has a small reducible umbilical hernia. Middle Chest Pain Score (Numeric/FACES): 8 - Related Data Allergies/Adverse Reactions: Allergies Allergy/AdvReac Type Severity Reaction Status Date / Time shellfish derived Allergy Intermediate Hives Verified 09/12/20 12:30 codeine AdvReac Mild Hyperactivi Verified 09/12/20 12:30 ty Home Medications: Home Meds Albuterol Sulfate [Proair Hfa] 2 puff INH TID PRN 07/02/18 [History] Furosemide [Lasix] 40 mg PO BID 07/02/18 [History] Lisinopril 5 mg PO BID 07/02/18 [History] Potassium Chloride [K-Tab ER] 20 meq PO DAILY 07/02/18 [History] atorvaSTATin [Lipitor] 10 mg PO BEDTIME 07/02/18 [History] Digoxin 250 mcg PO DAILY 08/11/20 [History] Metoprolol Succinate 25 mg PO BID 08/11/20 [History] Cholecalciferol (Vitamin D3) [Vitamin D3] 5,000 unit PO DAILY #30 cap 08/14/20 [Rx] Nicotine [Nicotine Patch] 21 mg TD DAILY #30 patch 08/14/20 [Rx] Past Medical History Cardiovascular History: Reports: Automatic Implantable Cardioverter Defibrillators, Heart Failure, High Cholesterol, Hypertension, [place], SOB on Exertion Respiratory History: Reports: Asthma, COPD, SOB Genitourinary History: Reports: Retention, Urinary Psychiatric History: Reports: Anxiety Endocrine/Metabolic History: Reports: Vitamin D Deficiency - Infectious Disease History Infectious Disease History: Reports: Chicken Pox, Measles, Mumps - Past Surgical History Cardiovascular Surgical History: Reports: AICD Other GI Surgeries/Procedures: 6 inches of colon removed in 2013 Musculoskeletal Surgical History: Reports: Amputation, Other (See Below) Other Musculoskeletal Surgeries/Procedures:: Tip of finger amputated. Social & Family History - Family History Family Medical History: No Pertinent Family History - Tobacco Use Tobacco Use Status *Q: Current Every Day Tobacco User Years of Tobacco use: 40 Packs/Tins Daily: 0.3 - Caffeine Use Caffeine Use: Reports: Soda - Recreational Drug Use Recreational Drug Use: No H&P Review of Systems - Review of Systems: Review Of Systems: See Below General: Reports: Malaise, Weakness HEENT: Reports: No Symptoms Pulmonary: Reports: No Symptoms Cardiovascular: Reports: No Symptoms Gastrointestinal: Reports: Abdominal Pain, Diarrhea, Distension Genitourinary: Reports: No Symptoms Musculoskeletal: Reports: No Symptoms Skin: Reports: No Symptoms Psychiatric: Reports: No Symptoms Neurological: Reports: No Symptoms Immunologic: Reports: No Symptoms Exam - Exam Exam: See Below - Vital Signs Vital Signs: Last Vital Signs Temp 37.1 C 09/12/20 12:28 Pulse 110 H 09/12/20 12:28 Resp 21 H 09/12/20 12:28 BP Pulse Ox 100 09/12/20 12:28 Weight: 77.111 kg - Exam General: Alert, Oriented, Moderate Distress HEENT: Conjunctiva Clear Neck: Supple, Trachea Midline Lungs: Normal Respiratory Effort Cardiovascular: Regular Rate, Regular Rhythm, Other (AICD in place) GI/Abdominal Exam: Distended, Tender, Other (tympanic on percussion, small reducible umbilical hernia) Skin: Warm, Dry Neuro Extensive - Mental Status: Alert, Oriented x3 - Patient Data Lab Results Last 24 hrs: Laboratory Results - last 24 hr 09/12/20 09/12/20 09/12/20 Range/Units 12:36 12:36 12:36 WBC 10.59 H (4.23-9.07) K/mm3 RBC 4.16 L (4.63-6.08) M/mm3 Hgb 11.5 L (13.7-17.5) gm/dl Hct 38.1 L (40.1-51.0) % MCV 91.6 (79.0-92.2) fl MCH 27.6 (25.7-32.2) pg MCHC 30.2 L (32.2-35.5) g/dl RDW Std Deviation 53.5 H (35.1-43.9) fL Plt Count 353 H (163-337) K/mm3 MPV 9.0 L (9.4-12.3) fl Neut % (Auto) 77.1 H (34.0-67.9) % Lymph % (Auto) 13.8 L (21.8-53.1) % Lewis % (Auto) 7.2 (5.3-12.2) % Eos % (Auto) 1.5 (0.8-7.0) Baso % (Auto) 0.2 (0.1-1.2) % Neut # (Auto) 8.17 H (1.78-5.38) K/mm3 Lymph # (Auto) 1.46 (1.32-3.57) K/mm3 Lewis # (Auto) 0.76 (0.30-0.82) K/mm3 Eos # (Auto) 0.16 (0.04-0.54) K/mm3 Baso # (Auto) 0.02 (0.01-0.08) K/mm3 Manual Slide Review Abnormal smear Sodium 135 L (136-145) mEq/L Potassium 4.2 (3.5-5.1) mEq/L Chloride 99 (98-107) mEq/L Carbon Dioxide 25 (21-32) mEq/L Anion Gap 15.2 H (5-15) BUN 20 H (7-18) mg/dL Creatinine 1.5 H (0.7-1.3) mg/dL Est Cr Clr Drug Dosing 50.80 mL/min Estimated GFR (MDRD) 49 (>60) mL/min BUN/Creatinine Ratio 13.3 L (14-18) Glucose 100 (74-106) mg/dL Calcium 8.4 L (8.5-10.1) mg/dL Total Bilirubin 1.1 H (0.2-1.0) mg/dL GGT (15-85) U/L AST 174 H (15-37) U/L ALT 435 H (16-63) U/L Alkaline Phosphatase 89 (46-116) U/L Troponin I 0.266 H* (0.00-0.056) ng/mL C-Reactive Protein 2.6 H* (<1.0) mg/dL NT-Pro-B Natriuret Pep (0-125) pg/mL Total Protein 6.8 (6.4-8.2) g/dl Albumin 3.3 L (3.4-5.0) g/dl Globulin 3.5 gm/dL Albumin/Globulin Ratio 0.9 L (1-2) Lipase (73-393) U/L SARS-CoV-2 RNA (BRIDGETT) (NEGATIVE) 09/12/20 09/12/20 09/12/20 Range/Units 12:36 12:36 12:36 WBC (4.23-9.07) K/mm3 RBC (4.63-6.08) M/mm3 Hgb (13.7-17.5) gm/dl Hct (40.1-51.0) % MCV (79.0-92.2) fl MCH (25.7-32.2) pg MCHC (32.2-35.5) g/dl RDW Std Deviation (35.1-43.9) fL Plt Count (163-337) K/mm3 MPV (9.4-12.3) fl Neut % (Auto) (34.0-67.9) % Lymph % (Auto) (21.8-53.1) % Lewis % (Auto) (5.3-12.2) % Eos % (Auto) (0.8-7.0) Baso % (Auto) (0.1-1.2) % Neut # (Auto) (1.78-5.38) K/mm3 Lymph # (Auto) (1.32-3.57) K/mm3 Lewis # (Auto) (0.30-0.82) K/mm3 Eos # (Auto) (0.04-0.54) K/mm3 Baso # (Auto) (0.01-0.08) K/mm3 Manual Slide Review Sodium (136-145) mEq/L Potassium (3.5-5.1) mEq/L Chloride (98-107) mEq/L Carbon Dioxide (21-32) mEq/L Anion Gap (5-15) BUN (7-18) mg/dL Creatinine (0.7-1.3) mg/dL Est Cr Clr Drug Dosing mL/min Estimated GFR (MDRD) (>60) mL/min BUN/Creatinine Ratio (14-18) Glucose (74-106) mg/dL Calcium (8.5-10.1) mg/dL Total Bilirubin (0.2-1.0) mg/dL GGT 114 H (15-85) U/L AST (15-37) U/L ALT (16-63) U/L Alkaline Phosphatase (46-116) U/L Troponin I (0.00-0.056) ng/mL C-Reactive Protein (<1.0) mg/dL NT-Pro-B Natriuret Pep 09662 H (0-125) pg/mL Total Protein (6.4-8.2) g/dl Albumin (3.4-5.0) g/dl Globulin gm/dL Albumin/Globulin Ratio (1-2) Lipase 200 (73-393) U/L SARS-CoV-2 RNA (BRIDGETT) (NEGATIVE) 09/12/20 09/12/20 Range/Units 15:00 15:41 WBC (4.23-9.07) K/mm3 RBC (4.63-6.08) M/mm3 Hgb (13.7-17.5) gm/dl Hct (40.1-51.0) % MCV (79.0-92.2) fl MCH (25.7-32.2) pg MCHC (32.2-35.5) g/dl RDW Std Deviation (35.1-43.9) fL Plt Count (163-337) K/mm3 MPV (9.4-12.3) fl Neut % (Auto) (34.0-67.9) % Lymph % (Auto) (21.8-53.1) % Lewis % (Auto) (5.3-12.2) % Eos % (Auto) (0.8-7.0) Baso % (Auto) (0.1-1.2) % Neut # (Auto) (1.78-5.38) K/mm3 Lymph # (Auto) (1.32-3.57) K/mm3 Lewis # (Auto) (0.30-0.82) K/mm3 Eos # (Auto) (0.04-0.54) K/mm3 Baso # (Auto) (0.01-0.08) K/mm3 Manual Slide Review Sodium (136-145) mEq/L Potassium (3.5-5.1) mEq/L Chloride (98-107) mEq/L Carbon Dioxide (21-32) mEq/L Anion Gap (5-15) BUN (7-18) mg/dL Creatinine (0.7-1.3) mg/dL Est Cr Clr Drug Dosing mL/min Estimated GFR (MDRD) (>60) mL/min BUN/Creatinine Ratio (14-18) Glucose (74-106) mg/dL Calcium (8.5-10.1) mg/dL Total Bilirubin (0.2-1.0) mg/dL GGT (15-85) U/L AST (15-37) U/L ALT (16-63) U/L Alkaline Phosphatase (46-116) U/L Troponin I 0.445 H* (0.00-0.056) ng/mL C-Reactive Protein (<1.0) mg/dL NT-Pro-B Natriuret Pep (0-125) pg/mL Total Protein (6.4-8.2) g/dl Albumin (3.4-5.0) g/dl Globulin gm/dL Albumin/Globulin Ratio (1-2) Lipase (73-393) U/L SARS-CoV-2 RNA (BRIDGETT) Negative (NEGATIVE) Result Diagrams: 09/12/20 12:36 09/12/20 12:36 Sepsis Event Note - Evaluation Sepsis Screening Result: No Definite Risk - Focused Exam Vital Signs: Vital Signs Temp Pulse Resp Pulse Ox 09/12/20 12:28 37.1 C 110 H 21 H 100 Consult PN Assessment/Plan Procedures: Procedures AIRWAY INHALATION TREATMENT (08/11/20) ASSAY OF FOLIC ACID SERUM (08/11/20) ASSAY OF IRON (08/11/20) ASSAY OF LACTIC ACID (08/11/20) ASSAY OF LIPASE (08/11/20) ASSAY OF MAGNESIUM (08/11/20) ASSAY OF NATRIURETIC PEPTIDE (08/11/20) ASSAY OF SERUM POTASSIUM (08/11/20) ASSAY OF TRANSFERRIN (08/11/20) ASSAY OF TROPONIN QUANT (08/11/20) BL SMEAR W/DIFF WBC COUNT (07/02/18) BLOOD CULTURE FOR BACTERIA (08/11/20) C-REACTIVE PROTEIN (08/11/20) CHEST X-RAY 1 VIEW FRONTAL (05/14/15) CO/MEMBANE DIFFUSE CAPACITY (11/08/16) COMPLETE CBC AUTOMATED (07/02/18) COMPLETE CBC W/AUTO DIFF WBC (08/11/20) COMPREHEN METABOLIC PANEL (08/11/20) CREATINE MB FRACTION (07/02/18) CT ABD & PELV W/CONTRAST (08/11/20) CT ANGIOGRAPHY CHEST (11/22/16) ECHO EXAM OF ABDOMEN (08/11/20) ELECTROCARDIOGRAM TRACING (08/11/20) EMERGENCY DEPT VISIT (07/02/18) EMERGENCY DEPT VISIT (07/11/14) EVALUATE PT USE OF INHALER (11/22/16) EVALUATION OF WHEEZING (11/08/16) HEPATITIS B SURFACE AG IA (08/11/20) HEPATITIS C AB TEST (08/11/20) HEPATOBIL SYST IMAGE W/DRUG (08/11/20) HYDRATE IV INFUSION ADD-ON (11/22/16) INFLUENZA ASSAY W/OPTIC (07/02/18) MEASURE BLOOD OXYGEN LEVEL (08/11/20) MYCOPLASMA ANTIBODY (07/02/18) PROCALCITONIN (PCT) (08/11/20) PROTHROMBIN TIME (07/02/18) PULM FUNCT TST PLETHYSMOGRAP (11/08/16) ROUTINE VENIPUNCTURE (08/11/20) SARS-COV-2 COVID-19 AMP PRB (08/11/20) THER/PROPH/DIAG INJ IV PUSH (07/02/18) THER/PROPH/DIAG INJ SC/IM (07/11/14) THROMBOPLASTIN TIME PARTIAL (07/02/18) TTE W/DOPPLER COMPLETE (08/11/20) TX/PRO/DX INJ NEW DRUG ADDON (07/02/18) TX/PRO/DX INJ SAME DRUG BLOW DOWN OPERATOR (07/02/18) URINALYSIS AUTO W/SCOPE (08/11/20) VITAMIN B-12 (08/11/20) VITAMIN D 25 HYDROXY (08/11/20) X-RAY EXAM CHEST 1 VIEW (07/02/18) X-RAY EXAM CHEST 2 VIEWS (08/11/20) X-RAY XM COLON 1CNTRST STD (07/09/14) Problem List Initiated/Reviewed/Updated: Yes Plan: Patient is chronically ill at baseline with significant CHF. Labs indicate myocardial stress with elevated natriuritic peptide suggesting acute CHF exacerbation. The patient does not have an acute abdomen. Labs also suggest global hypoperfusion with mild elevation in LFTs, and abdominal symptoms may be related to small bowel edema. I believe the patient's symptoms will improve if his congestive heart failure can be controlled, and given his overall poor health he will be best served at a medical center where subspecialty services including cardiology are available.
== END 2020-09-12 17:38 ==
LOC: JD.ED 12:19
DX: R10.11 Right upper quadrant pain (principal); R11.2 Nausea with vomiting, unspecified; R19.7 Diarrhea, unspecified; R79.89 Other specified abnormal findings of blood chemistry; I11.0 Hypertensive heart disease with heart failure; I50.9 Heart failure, unspecified; E78.00 Pure hypercholesterolemia, unspecified; I25.2 Old myocardial infarction; J44.9 Chronic obstructive pulmonary disease, unspecified; F17.200 Nicotine dependence, unspecified, uncomplicated; Z20.822 Contact with and (suspected) exposure to COVID-19; Z91.013 Allergy to seafood; Z88.5 Allergy status to narcotic agent
CPT/HCPCS: 36415; 71045; 74019; 80053; 82977; 83690; 83880; 84484; 85025; 86140; 87635; 93005; 96374; 96375; 96376; 99285; A9270; J1170; J2405; J7120; 93010; 99284; U0002

== ENCOUNTER 2020-10-10 00:51 | Emergency (ER) | payer OTHER ==
[2020-10-10 01:04] VITALS: BP 130/110; PULSE 59
[2020-10-10] MEDS ORDERED: ceFAZolin 1 GM in Premix Bag 1 BAG IV ONE (01:18)
--- NOTE | 2020-10-10 01:37 | EDM.PDOC ---
ED HPI GENERAL MEDICAL PROBLEM - General Chief Complaint: Upper Extremity Injury/Pain Stated Complaint: right hand injury fingers caught under tire Time Seen by Provider: 10/10/20 00:56 Source of Information: Reports: Patient History Limitations: Reports: No Limitations - History of Present Illness INITIAL COMMENTS - FREE TEXT/NARRATIVE: The patient was changing a tire when the vehicle slipped off the rene and metal part of the vehicle body fell onto his right hand crushing it between the body of the vehicle and the tire. Patient came immediately to the ER. Treatment or attempt to moderate symptoms otherwise prior to arrival. Risk factors consist of cigarette smoking and cardiological and respiratory issues as described in previous records. Leading up to this incident there had been no symptom of acute medical illness or condition. No fever aj shortness of breath despite the patient's host of medical issues he had been doing well and disease free prior to the accident. Right Finger-Middle Pain Score (Numeric/FACES): 10 - Related Data Allergies Allergy/AdvReac Type Severity Reaction Status Date / Time shellfish derived Allergy Intermediate Hives Verified 10/10/20 01:04 codeine AdvReac Mild Hyperactivi Verified 10/10/20 01:04 ty Home Meds: Home Meds Albuterol Sulfate [Proair Hfa] 2 puff INH TID PRN 07/02/18 [History] Furosemide [Lasix] 40 mg PO BID 07/02/18 [History] Lisinopril 5 mg PO BID 07/02/18 [History] Potassium Chloride [K-Tab ER] 20 meq PO DAILY 07/02/18 [History] atorvaSTATin [Lipitor] 10 mg PO BEDTIME 07/02/18 [History] Digoxin 250 mcg PO DAILY 08/11/20 [History] Metoprolol Succinate 25 mg PO BID 08/11/20 [History] Cholecalciferol (Vitamin D3) [Vitamin D3] 5,000 unit PO DAILY #30 cap 08/14/20 [Rx] Nicotine [Nicotine Patch] 21 mg TD DAILY #30 patch 08/14/20 [Rx] Past Medical History Cardiovascular History: Reports: Automatic Implantable Cardioverter Defibrillators, Heart Failure, High Cholesterol, Hypertension, [place], SOB on Exertion Respiratory History: Reports: Asthma, COPD, SOB Genitourinary History: Reports: Retention, Urinary Psychiatric History: Reports: Anxiety Endocrine/Metabolic History: Reports: Vitamin D Deficiency - Infectious Disease History Infectious Disease History: Reports: Chicken Pox, Measles, Mumps - Past Surgical History Cardiovascular Surgical History: Reports: AICD Other GI Surgeries/Procedures: 6 inches of colon removed in 2014 Musculoskeletal Surgical History: Reports: Amputation, Other (See Below) Other Musculoskeletal Surgeries/Procedures:: Tip of finger amputated. Social & Family History - Family History Family Medical History: No Pertinent Family History - Tobacco Use Tobacco Use Status *Q: Current Some Day Tobacco User Years of Tobacco use: 45 Packs/Tins Daily: 1 Used Tobacco, but Quit: No - Caffeine Use Caffeine Use: Reports: Coffee - Recreational Drug Use Recreational Drug Use: No Review of Systems - Review of Systems Review Of Systems: Comprehensive ROS is negative, except as noted in HPI. ED EXAM, GENERAL - Physical Exam Exam: See Below Free Text/Narrative:: Alert, no aj distress but in obvious pain. Normocephalic atraumatic. Neck supple. Lungs clear. Heart is regular. Abdomen soft and nontender. No peripheral edema cyanosis or clubbing of the digits. Neurologically the patient is grossly intact with fluent speech and no focal neurological or sensory deficit other than as related to the right hand. Patient's mood and affect are normal. The right hand has various injuries. There is a laceration across the middle phalanx of the right ring finger dorsum, laceration across the proximal interphalangeal joint of the middle finger, additional flap laceration volar surface of the right middle finger at the proximal interphalangeal joint, there is a flap laceration with evulsion of the volar surface of the distal phalanx of the fifth digit. There is duskiness of the middle finger involving the distal phalanx and a portion of the middle phalanx. There is also milder duskiness of the index finger volar surface but no laceration of the index finger is identified. He is able to flex digits except for the middle finger which he can only move a few degrees of flexion. Course - Vital Signs Text/Narrative:: The patient has received a gram of Ancef IV and IV fluids have been started. He has received morphine for pain. He needs to be transferred for hand surgery. Patient's preference is [place]. Spoke with Dr. Keith hand surgeon telecommunication tower technician who approves the transfer. Patient will go through the ER and the exceptor will be Dr. Bee. Patient could potentially go by POV but the concern is underlying respiratory and cardiological issues as described above. Recommend ambulance transport. He needs to be monitored in light of chronic pulmonary and cardiological issues. He is noted to be on digoxin presumably for rate control and this is subtherapeutic. We do not want to delay the transfer by starting to adjust drug levels. Last Recorded V/S: Last Vital Signs Temp 36.5 C 10/10/20 00:57 Pulse 59 L 10/10/20 00:57 Resp 18 10/10/20 00:57 BP 130/110 H 10/10/20 00:57 Pulse Ox 96 10/10/20 00:57 - Orders/Labs/Meds Orders: Active Orders 24 hr Category Date Time Status Vaccines to be Administered [RC] PER UNIT ROUTINE Care 10/10/20 02:33 Active Hand Comp Min 3V Rt [CR] Stat Exams 10/10/20 01:09 Taken Labs: Laboratory Tests 10/10/20 10/10/20 10/10/20 Range/Units 01:25 01:25 01:25 WBC 10.56 H (4.23-9.07) K/mm3 RBC 4.92 (4.63-6.08) M/mm3 Hgb 12.9 L (13.7-17.5) gm/dl Hct 41.2 (40.1-51.0) % MCV 83.7 D (79.0-92.2) fl MCH 26.2 (25.7-32.2) pg MCHC 31.3 L (32.2-35.5) g/dl RDW Std Deviation 51.1 H (35.1-43.9) fL Plt Count 468 H D (163-337) K/mm3 MPV 9.0 L (9.4-12.3) fl Neutrophils % (Manual) 73 H (40-60) % Band Neutrophils % 0 (0-10) % Lymphocytes % (Manual) 14 L (20-40) % Atypical Lymphs % 0 % Monocytes % (Manual) 7 (2-10) % Eosinophils % (Manual) 5 (0.8-7.0) % Basophils % (Manual) 1 (0.2-1.2) Toxic Granulation 1+ slight Platelet Estimate Increased Anisocytosis 1+ slight RBC Morph Comment Not Reportable Sodium 137 (136-145) mEq/L Potassium 3.5 (3.5-5.1) mEq/L Chloride 100 (98-107) mEq/L Carbon Dioxide 26 (21-32) mEq/L Anion Gap 14.5 (5-15) BUN 28 H (7-18) mg/dL Creatinine 1.8 H (0.7-1.3) mg/dL Est Cr Clr Drug Dosing 42.34 mL/min Estimated GFR (MDRD) 40 (>60) mL/min BUN/Creatinine Ratio 15.6 (14-18) Glucose 124 H (74-106) mg/dL Calcium 8.4 L (8.5-10.1) mg/dL Total Bilirubin 0.6 (0.2-1.0) mg/dL AST 38 H (15-37) U/L ALT 40 (16-63) U/L Alkaline Phosphatase 60 (46-116) U/L Total Protein 7.3 (6.4-8.2) g/dl Albumin 3.6 (3.4-5.0) g/dl Globulin 3.7 gm/dL Albumin/Globulin Ratio 1.0 (1-2) Digoxin 0.2 L (0.9-2.0) ng/mL SARS-CoV-2 RNA ([facility]) (NEGATIVE) 10/10/20 Range/Units 01:35 WBC (4.23-9.07) K/mm3 RBC (4.63-6.08) M/mm3 Hgb (13.7-17.5) gm/dl Hct (40.1-51.0) % MCV (79.0-92.2) fl MCH (25.7-32.2) pg MCHC (32.2-35.5) g/dl RDW Std Deviation (35.1-43.9) fL Plt Count (163-337) K/mm3 MPV (9.4-12.3) fl Neutrophils % (Manual) (40-60) % Band Neutrophils % (0-10) % Lymphocytes % (Manual) (20-40) % Atypical Lymphs % % Monocytes % (Manual) (2-10) % Eosinophils % (Manual) (0.8-7.0) % Basophils % (Manual) (0.2-1.2) Toxic Granulation Platelet Estimate Anisocytosis RBC Morph Comment Sodium (136-145) mEq/L Potassium (3.5-5.1) mEq/L Chloride (98-107) mEq/L Carbon Dioxide (21-32) mEq/L Anion Gap (5-15) BUN (7-18) mg/dL Creatinine (0.7-1.3) mg/dL Est Cr Clr Drug Dosing mL/min Estimated GFR (MDRD) (>60) mL/min BUN/Creatinine Ratio (14-18) Glucose (74-106) mg/dL Calcium (8.5-10.1) mg/dL Total Bilirubin (0.2-1.0) mg/dL AST (15-37) U/L ALT (16-63) U/L Alkaline Phosphatase (46-116) U/L Total Protein (6.4-8.2) g/dl Albumin (3.4-5.0) g/dl Globulin gm/dL Albumin/Globulin Ratio (1-2) Digoxin (0.9-2.0) ng/mL SARS-CoV-2 RNA ([facility]) Negative (NEGATIVE) Meds: Medications Discontinued Medications Generic Name Dose Route Start Last Admin Trade Name Freq PRN Reason Stop Dose Admin Diphtheria/Tetanus/Acell Pertussis 0.5 ml 10/10/20 02:33 10/10/20 02:40 Diphtheria,Pertussis(Acell),Tetanus Vaccine 0.5 Ml Syringe IM 10/10/20 02:34 0.5 ml .ONCE ONE Administration Cefazolin Sodium/Dextrose 1 gm 50 mls @ 100 mls/hr 10/10/20 01:18 10/10/20 01:36 / Premix IV 10/10/20 01:47 100 mls/hr ONETIME ONE Administration Morphine Sulfate 2 mg 10/10/20 01:38 10/10/20 01:45 Morphine 2 Mg/Ml Syringe IVPUSH 10/10/20 01:39 2 mg ONETIME STA Administration Morphine Sulfate 2 mg 10/10/20 02:35 10/10/20 02:40 Morphine 2 Mg/Ml Syringe IVPUSH 10/10/20 02:36 2 mg ONETIME ONE Administration Departure - Departure Time of Disposition: 03:12 Disposition: DC/Tfer to Acute Hospital 02 Condition: Fair Clinical Impression: Ischemia of digits of hand, Injury of tendon of finger Crushing injury of right hand Qualifiers: Encounter type: initial encounter Qualified Code(s): S67.21XA - Crushing injury of right hand, initial encounter Fracture of finger, middle phalanx, right, open Qualifiers: Encounter type: initial encounter Finger: ring finger Fracture alignment: nondisplaced Qualified Code(s): S62.654B - Nondisplaced fracture of middle phalanx of right ring finger, initial encounter for open fracture - Discharge Information Referrals: Poppy Trujillo MD [Primary Care Provider] - Forms: ED Department Discharge Sepsis Event Note (ED) - Evaluation Sepsis Screening Result: No Definite Risk - Focused Exam Vital Signs: Vital Signs Temp Pulse Resp BP Pulse Ox 10/10/20 00:57 36.5 C 59 L 18 130/110 H 96 - My Orders Last 24 Hours: My Active Orders 10/10/20 01:09 Hand Comp Min 3V Rt [CR] Stat 10/10/20 02:33 Vaccines to be Administered [RC] PER UNIT ROUTINE - Assessment/Plan Last 24 Hours: My Active Orders 10/10/20 01:09 Hand Comp Min 3V Rt [CR] Stat 10/10/20 02:33 Vaccines to be Administered [RC] PER UNIT ROUTINE
[2020-10-10] MEDS ORDERED: Morphine 2 MG/ML SYRINGE IVPUSH STA (01:38)
[2020-10-10] MEDS ORDERED: Diphtheria,Pertussis(Acell),Tetanus Vaccine 0.5 ML Syringe IM ONE (02:33)
[2020-10-10] MEDS ORDERED: Morphine 2 MG/ML SYRINGE IVPUSH ONE (02:35)
--- NOTE | 2020-10-10 08:08 | CR ---
Right hand: 4 views of the right hand were obtained. Comparison: No prior hand or finger study is available. Joint space narrowing scattered within the MCP joints which is worse within the third finger. Scattered soft tissue swelling is noted. Soft tissue injury is noted most prominently within the distal fifth finger. Deformity is noted within the distal phalanx of the fifth finger compatible with old injury and possible acute avulsion injury. No additional fracture, dislocation or other bony abnormality is appreciated. Impression: 1. Mild degenerative change. 2. Soft tissue injury which is most prominent within the distal fifth finger. 3. Old fracture within the distal fifth finger as well as questionable small acute avulsion fracture within the tuft of the distal phalanx of the fifth finger. 4. No other acute bony abnormality is seen. Diagnostic code #3
== END 2020-10-10 03:12 ==
LOC: JD.ED 00:51
DX: S67.21XA Crushing injury of right hand, initial encounter (principal); S62.654B Nondisplaced fracture of middle phalanx of right ring finger, initial encounter for open fracture; S56.10 Unspecified injury of flexor muscle, fascia and tendon of other and unspecified finger at forearm level; I99.8 Other disorder of circulatory system; E78.00 Pure hypercholesterolemia, unspecified; I11.0 Hypertensive heart disease with heart failure; I50.9 Heart failure, unspecified; I25.2 Old myocardial infarction; J44.9 Chronic obstructive pulmonary disease, unspecified; F17.210 Nicotine dependence, cigarettes, uncomplicated; Z79.899 Other long term (current) drug therapy; Z91.018 Allergy to other foods; Z88.5 Allergy status to narcotic agent; Z20.822 Contact with and (suspected) exposure to COVID-19; Z23 Encounter for immunization; W20.8XXA Other cause of strike by thrown, projected or falling object, initial encounter
CPT/HCPCS: 36415; 73130; 80053; 80162; 85007; 85027; 87635; 90471; 90715; 96365; 96375; 96376; 99285; J0690; J2270; 99284; U0002

== ENCOUNTER 2020-10-18 20:13 | Inpatient (IN) | payer OTHER ==
[2020-10-18] MEDS ORDERED: Sodium Chloride 0.9% 10 ML Syringe FLUSH PRN (20:41)
[2020-10-18] MEDS ORDERED: HYDROmorphone 0.5 MG/0.5 ML Syringe IVPUSH ONE ×2 (20:42→22:55)
[2020-10-18] MEDS ORDERED: Ondansetron 4 MG/2 ML SDV IVPUSH ONE (20:42)
--- NOTE | 2020-10-18 20:48 | EDM.PDOC ---
ED HPI GENERAL MEDICAL PROBLEM - General Chief Complaint: Abdominal Pain Stated Complaint: ABDOMINAL PAIN Time Seen by Provider: 10/18/20 20:24 Source of Information: Reports: Patient, Old Records History Limitations: Reports: No Limitations - History of Present Illness INITIAL COMMENTS - FREE TEXT/NARRATIVE: This is a 54-year-old male. He has a history of severe COPD but not oxygen dependent. History of congestive heart failure with an ejection fraction of 15 to 20%. He also has an implantable ICD. He has renal insufficiency. He was in the hospital back in August 2020 due to an a calculus cholecystitis. There were thinking of taking about his gallbladder however due to his many problems including renal insufficiency. 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 Also since that time he had 2 fingers on his right hand that were nearly severed and they were put back on by Dr. Pulido in [place] and he saw Dr. Pulido a couple days ago. He had onset also of right upper quadrant abdominal pain with nausea and vomiting and he has not been able to keep any of his medications down. He comes to the ER now evaluation. He denies any fever or chills denies any cough. He does not know what he weighs now but he states his dry weight is usually 157 pounds the last time he checked. His weight in the ER was 154.5 pounds. Middle Abdomen Pain Score (Numeric/FACES): 8 - Related Data Allergies Allergy/AdvReac Type Severity Reaction Status Date / Time shellfish derived Allergy Intermediate Hives Verified 10/18/20 20:25 codeine AdvReac Mild Hyperactivi Verified 10/18/20 20:25 ty Home Meds: Home Meds Albuterol Sulfate [Proair Hfa] 2 puff INH TID PRN 07/02/18 [History] Furosemide [Lasix] 40 mg PO BID 07/02/18 [History] Lisinopril 5 mg PO BID 07/02/18 [History] Potassium Chloride [K-Tab ER] 20 meq PO DAILY 07/02/18 [History] atorvaSTATin [Lipitor] 10 mg PO BEDTIME 07/02/18 [History] Digoxin 250 mcg PO DAILY 08/11/20 [History] Metoprolol Succinate 25 mg PO BID 08/11/20 [History] Cholecalciferol (Vitamin D3) [Vitamin D3] 5,000 unit PO DAILY #30 cap 08/14/20 [Rx] Nicotine [Nicotine Patch] 21 mg TD DAILY #30 patch 08/14/20 [Rx] Past Medical History Cardiovascular History: Reports: Automatic Implantable Cardioverter Defibrillators, Heart Failure, High Cholesterol, Hypertension, NV, SOB on Exer tion Respiratory History: Reports: Asthma, COPD, SOB Genitourinary History: Reports: Retention, Urinary Psychiatric History: Reports: Anxiety Endocrine/Metabolic History: Reports: Vitamin D Deficiency - Infectious Disease History Infectious Disease History: Reports: Chicken Pox, Measles, Mumps - Past Surgical History Cardiovascular Surgical History: Reports: AICD Other GI Surgeries/Procedures: 6 inches of colon removed in 2013 Musculoskeletal Surgical History: Reports: Amputation, Other (See Below) Other Musculoskeletal Surgeries/Procedures:: Tip of finger amputated. Social & Family History - Family History Family Medical History: No Pertinent Family History - Tobacco Use Tobacco Use Status *Q: Current Every Day Tobacco User Years of Tobacco use: 40 Packs/Tins Daily: 0.5 - Caffeine Use Caffeine Use: Reports: Coffee - Recreational Drug Use Recreational Drug Use: No ED ROS GENERAL - Review of Systems Review Of Systems: See Below Constitutional: Denies: Fever, Chills HEENT: Reports: No Symptoms Respiratory: Reports: Shortness of Breath. Denies: Wheezing, Cough Cardiovascular: Denies: Chest Pain Endocrine: Reports: No Symptoms GI/Abdominal: Reports: Abdominal Pain, Nausea, Vomiting. Denies: Constipation, Diarrhea, Distension : Reports: No Symptoms Musculoskeletal: Reports: No Symptoms Skin: Reports: No Symptoms Neurological: Reports: No Symptoms Psychiatric: Reports: Anxiety Hematologic/Lymphatic: Reports: No Symptoms ED EXAM, GI/ABD - Physical Exam Exam: See Below Exam Limited By: No Limitations General Appearance: Alert, WD/WN, Anxious, Mild Distress Eyes: Bilateral: Normal Appearance Ears: Normal External Exam Nose: Normal Inspection Throat/Mouth: Normal Lips, Normal Voice, No Airway Compromise, Other (Tacky mucous membranes) Head: Normocephalic Neck: Supple Respiratory/Chest: No Respiratory Distress, Lungs Clear, Other (Decreased breath sounds in all anthony) Cardiovascular: Regular Rate, Rhythm, No Murmur, Tachycardia GI/Abdominal Exam: Other (Patient has guarding all over his entire abdomen. All sounds are decreased. He appears to have mild peritoneal irritation everywhere.) Back Exam: Full Range of Motion Extremities: Normal Range of Motion, Other (There is no obvious peripheral edema in his lower extremities noted today.) Neurological: Alert, Oriented Psychiatric: Anxious Skin Exam: Warm, Dry, Other (He has a sallow complexion) #1 Interpretation EKG Date: 10/18/20 Time: 20:50 EKG Interpretation Comments: EKG shows a sinus tachycardia rate of 124. He has a left bundle branch block that has not changed. I cannot tell any further ST or T wave changes due to that. There is no real change in morphology from his EKG on 09/12/2020 Course - Vital Signs Last Recorded V/S: Last Vital Signs Temp 96.9 F 10/18/20 20:22 Pulse 125 H 10/18/20 20:22 Resp 16 10/18/20 20:22 BP 178/124 H 10/18/20 20:22 Pulse Ox 99 10/18/20 20:22 - Orders/Labs/Meds Orders: Active Orders 24 hr Category Date Time Status EKG 12 Lead [EKG Documentation Completion] [RC] STAT Care 10/18/20 20:41 Active Peripheral IV Care [RC] . DIRECTED Care 10/18/20 20:41 Active Abdomen Ltd [US] Stat Exams 10/18/20 20:41 Taken Abdomen Pelvis wo Cont [CT] Stat Exams 10/18/20 20:49 Taken CXR [Chest 1V Frontal] [CR] Stat Exams 10/18/20 20:41 Taken CULTURE BLOOD [BC] Stat Lab 10/18/20 20:55 Received CULTURE BLOOD [BC] Stat Lab 10/18/20 21:08 Received Sodium Chloride 0.9% [Saline Flush] Med 10/18/20 20:41 Active 10 ml FLUSH ASDIRECTED PRN Blood Culture x2 Reflex Set [OM.PC] Stat Oth 10/18/20 20:42 Ordered Peripheral IV Insertion Adult [OM.PC] Routine Oth 10/18/20 20:40 Ordered Medication Orders Sodium Chloride (Sodium Chloride 0.9% 10 Ml Syringe) 10 ml FLUSH ASDIRECTED PRN PRN Reason: Keep Vein Open Last Admin: 10/18/20 20:55 Dose: 10 ml Documented by: ANTWAN Labs: Laboratory Tests 10/18/20 10/18/20 10/18/20 Range/Units 20:45 20:45 20:45 WBC 9.09 H (4.23-9.07) K/mm3 RBC 4.63 (4.63-6.08) M/mm3 Hgb 12.2 L (13.7-17.5) gm/dl Hct 38.8 L (40.1-51.0) % MCV 83.8 (79.0-92.2) fl MCH 26.3 (25.7-32.2) pg MCHC 31.4 L (32.2-35.5) g/dl RDW Std Deviation 53.0 H (35.1-43.9) fL Plt Count 293 D (163-337) K/mm3 MPV 9.2 L (9.4-12.3) fl Neut % (Auto) 66.3 (34.0-67.9) % Lymph % (Auto) 26.1 (21.8-53.1) % Childress % (Auto) 5.2 L (5.3-12.2) % Eos % (Auto) 1.9 (0.8-7.0) Baso % (Auto) 0.4 (0.1-1.2) % Neut # (Auto) 6.03 H (1.78-5.38) K/mm3 Lymph # (Auto) 2.37 (1.32-3.57) K/mm3 Childress # (Auto) 0.47 (0.30-0.82) K/mm3 Eos # (Auto) 0.17 (0.04-0.54) K/mm3 Baso # (Auto) 0.04 (0.01-0.08) K/mm3 PT (9.7-12.0) SECONDS INR Sodium 139 (136-145) mEq/L Potassium 4.1 (3.5-5.1) mEq/L Chloride 103 (98-107) mEq/L Carbon Dioxide 22 (21-32) mEq/L Anion Gap 18.1 H (5-15) BUN 26 H (7-18) mg/dL Creatinine 1.4 H (0.7-1.3) mg/dL Est Cr Clr Drug Dosing 54.43 mL/min Estimated GFR (MDRD) 53 (>60) mL/min BUN/Creatinine Ratio 18.6 H (14-18) Glucose 97 (74-106) mg/dL Lactic Acid (0.4-2.0) mmol/L Calcium 9.0 (8.5-10.1) mg/dL Total Bilirubin 1.8 H (0.2-1.0) mg/dL AST 30 (15-37) U/L ALT 35 (16-63) U/L Alkaline Phosphatase 59 (46-116) U/L Troponin I 0.183 H* (0.00-0.056) ng/mL NT-Pro-B Natriuret Pep > 57156 H (0-125) pg/mL Total Protein 6.9 (6.4-8.2) g/dl Albumin 3.1 L (3.4-5.0) g/dl Globulin 3.8 gm/dL Albumin/Globulin Ratio 0.8 L (1-2) Lipase 64 L (73-393) U/L SARS-CoV-2 RNA (BRIDGETT) (NEGATIVE) 10/18/20 10/18/20 10/18/20 Range/Units 20:45 20:55 20:58 WBC (4.23-9.07) K/mm3 RBC (4.63-6.08) M/mm3 Hgb (13.7-17.5) gm/dl Hct (40.1-51.0) % MCV (79.0-92.2) fl MCH (25.7-32.2) pg MCHC (32.2-35.5) g/dl RDW Std Deviation (35.1-43.9) fL Plt Count (163-337) K/mm3 MPV (9.4-12.3) fl Neut % (Auto) (34.0-67.9) % Lymph % (Auto) (21.8-53.1) % Childress % (Auto) (5.3-12.2) % Eos % (Auto) (0.8-7.0) Baso % (Auto) (0.1-1.2) % Neut # (Auto) (1.78-5.38) K/mm3 Lymph # (Auto) (1.32-3.57) K/mm3 Childress # (Auto) (0.30-0.82) K/mm3 Eos # (Auto) (0.04-0.54) K/mm3 Baso # (Auto) (0.01-0.08) K/mm3 PT 12.6 H (9.7-12.0) SECONDS INR 1.18 Sodium (136-145) mEq/L Potassium (3.5-5.1) mEq/L Chloride (98-107) mEq/L Carbon Dioxide (21-32) mEq/L Anion Gap (5-15) BUN (7-18) mg/dL Creatinine (0.7-1.3) mg/dL Est Cr Clr Drug Dosing mL/min Estimated GFR (MDRD) (>60) mL/min BUN/Creatinine Ratio (14-18) Glucose (74-106) mg/dL Lactic Acid 3.5 H* (0.4-2.0) mmol/L Calcium (8.5-10.1) mg/dL Total Bilirubin (0.2-1.0) mg/dL AST (15-37) U/L ALT (16-63) U/L Alkaline Phosphatase (46-116) U/L Troponin I (0.00-0.056) ng/mL NT-Pro-B Natriuret Pep (0-125) pg/mL Total Protein (6.4-8.2) g/dl Albumin (3.4-5.0) g/dl Globulin gm/dL Albumin/Globulin Ratio (1-2) Lipase (73-393) U/L SARS-CoV-2 RNA (BRIDGETT) Negative (NEGATIVE) 10/18/20 Range/Units 23:55 WBC (4.23-9.07) K/mm3 RBC (4.63-6.08) M/mm3 Hgb (13.7-17.5) gm/dl Hct (40.1-51.0) % MCV (79.0-92.2) fl MCH (25.7-32.2) pg MCHC (32.2-35.5) g/dl RDW Std Deviation (35.1-43.9) fL Plt Count (163-337) K/mm3 MPV (9.4-12.3) fl Neut % (Auto) (34.0-67.9) % Lymph % (Auto) (21.8-53.1) % Childress % (Auto) (5.3-12.2) % Eos % (Auto) (0.8-7.0) Baso % (Auto) (0.1-1.2) % Neut # (Auto) (1.78-5.38) K/mm3 Lymph # (Auto) (1.32-3.57) K/mm3 Childress # (Auto) (0.30-0.82) K/mm3 Eos # (Auto) (0.04-0.54) K/mm3 Baso # (Auto) (0.01-0.08) K/mm3 PT (9.7-12.0) SECONDS INR Sodium (136-145) mEq/L Potassium (3.5-5.1) mEq/L Chloride (98-107) mEq/L Carbon Dioxide (21-32) mEq/L Anion Gap (5-15) BUN (7-18) mg/dL Creatinine (0.7-1.3) mg/dL Est Cr Clr Drug Dosing mL/min Estimated GFR (MDRD) (>60) mL/min BUN/Creatinine Ratio (14-18) Glucose (74-106) mg/dL Lactic Acid 1.9 (0.4-2.0) mmol/L Calcium (8.5-10.1) mg/dL Total Bilirubin (0.2-1.0) mg/dL AST (15-37) U/L ALT (16-63) U/L Alkaline Phosphatase (46-116) U/L Troponin I (0.00-0.056) ng/mL NT-Pro-B Natriuret Pep (0-125) pg/mL Total Protein (6.4-8.2) g/dl Albumin (3.4-5.0) g/dl Globulin gm/dL Albumin/Globulin Ratio (1-2) Lipase (73-393) U/L SARS-CoV-2 RNA (BRIDGETT) (NEGATIVE) Meds: Medications Generic Name Dose Route Start Last Admin Trade Name Freq PRN Reason Stop Dose Admin Sodium Chloride 10 ml 10/18/20 20:41 10/18/20 20:55 Sodium Chloride 0.9% 10 Ml Syringe FLUSH 10 ml ASDIRECTED PRN Administration Keep Vein Open Discontinued Medications Generic Name Dose Route Start Last Admin Trade Name Freq PRN Reason Stop Dose Admin Hydromorphone HCl 0.25 mg 10/18/20 20:42 10/18/20 20:56 Hydromorphone 0.5 Mg/0.5 Ml Syringe IVPUSH 10/18/20 20:43 0.25 mg ONETIME ONE Administration Hydromorphone HCl 0.25 mg 10/18/20 22:55 10/18/20 23:07 Hydromorphone 0.5 Mg/0.5 Ml Syringe IVPUSH 10/18/20 22:56 0.25 mg ONETIME ONE Administration Ondansetron HCl 4 mg 10/18/20 20:42 10/18/20 20:54 Ondansetron 4 Mg/2 Ml Sdv IVPUSH 10/18/20 20:43 4 mg ONETIME ONE Administration - Radiology Interpretation Free Text/Narrative:: Ultrasound of the right upper quadrant show some trace pericholecystic fluid that is nonspecific. There is no gallbladder wall thickening no gallstones seen and negative Wood sign. The rest of his ultrasound appears to be essentially normal. Chest x-ray shows severe cardiomegaly and a suggestion of some mild congestive failure. CT of the abdomen without contrast shows no gallstones no pericholecystic inflammation no biliary dilatation. He does have some granulomatous punctate lesions in the hepatic suggesting calcifications. Severe cardiomegaly and a right inguinal hernia that does not contain any inflamed appendix. Otherwise everything is normal. - Re-Assessments/Exams Free Text/Narrative Re-Assessment/Exam: 10/18/20 22:46 02 the patient that he is basically in the same condition he was in when we admitted him in September 2020. He is in congestive heart failure he is got a strain to his cardiac status not really been experiencing chest pain or tightness. With the nausea and vomiting and unable to keep his medications down this is put a strain on his heart. 10/19/20 00:[address] Griffin regarding the patient's condition and he agrees to admit for further evaluation and treatment. 10/19/20 00:35 Patient will be admitted to the ICU for further evaluation and treatment. Departure - Departure Time of Disposition: 00:25 Disposition: Admitted As Inpatient 66 Condition: Poor Clinical Impression: Cardiomegaly, Elevated blood pressure reading, Renal insufficiency, Cardiac LV ejection fraction 10-20%, Elevated lactic acid level, Elevated troponin Nausea and vomiting Qualifiers: Vomiting type: unspecified Vomiting Intractability: non-intractable Qualified Code(s): R11.2 - Nausea with vomiting, unspecified Abdominal pain Qualifiers: Abdominal location: right upper quadrant Qualified Code(s): R10.11 - Right upper quadrant pain Congestive heart failure Qualifiers: Heart failure type: unspecified Heart failure chronicity: acute on chronic Qualified Code(s): I50.9 - Heart failure, unspecified - Discharge Information Sepsis Event Note (ED) - Evaluation Sepsis Screening Result: No Definite Risk - Focused Exam Vital Signs: Vital Signs Temp Pulse Resp BP Pulse Ox 10/18/20 20:22 96.9 F 125 H 16 178/124 H 99 ED Communication - ED Communication Date/Time Date: 10/19/20 Time Called: 00:32 - Discussed Case With (1) Discussed Case With (1): Admitting Provider Person/s Notified (1): Reinaldo Griffin (Agrees to admit the patient for further evaluation and treatment.) - My Orders Last 24 Hours: My Active Orders 10/18/20 20:40 Peripheral IV Insertion Adult [OM.PC] Routine 10/18/20 20:41 EKG 12 Lead [EKG Documentation Completion] [RC] STAT Peripheral IV Care [RC] . DIRECTED Abdomen Ltd [US] Stat CXR [Chest 1V Frontal] [CR] Stat Sodium Chloride 0.9% [Saline Flush] 10 ml FLUSH ASDIRECTED PRN 10/18/20 20:42 Blood Culture x2 Reflex Set [OM.PC] Stat 10/18/20 20:49 Abdomen Pelvis wo Cont [CT] Stat 10/18/20 20:55 CULTURE BLOOD [BC] Stat 10/18/20 21:08 CULTURE BLOOD [BC] Stat - Assessment/Plan Last 24 Hours: My Active Orders 10/18/20 20:40 Peripheral IV Insertion Adult [OM.PC] Routine 10/18/20 20:41 EKG 12 Lead [EKG Documentation Completion] [RC] STAT Peripheral IV Care [RC] . DIRECTED Abdomen Ltd [US] Stat CXR [Chest 1V Frontal] [CR] Stat Sodium Chloride 0.9% [Saline Flush] 10 ml FLUSH ASDIRECTED PRN 10/18/20 20:42 Blood Culture x2 Reflex Set [OM.PC] Stat 10/18/20 20:49 Abdomen Pelvis wo Cont [CT] Stat 10/18/20 20:55 CULTURE BLOOD [BC] Stat 10/18/20 21:08 CULTURE BLOOD [BC] Stat
[2020-10-19] MEDS ORDERED: HYDROmorphone 0.5 MG/0.5 ML Syringe IVPUSH PRN (01:06)
[2020-10-19] MEDS ORDERED: Furosemide 20 MG/2 ML VIAL IVPUSH ONE (01:07)
[2020-10-19] MEDS: Ondansetron 4 MG/2 ML SDV IVPUSH PRN ×2 (01:21→07:54)
--- NOTE | 2020-10-19 06:40 | PCM.HP.2 ---
H&P History of Present Illness - General Date of Service: 10/19/20 Admit Problem/Dx: Admission Diagnosis/Problem Admission Diagnosis/Problem Abdominal pain, congestive heart failure exacerbation. Source of Information: Patient History Limitations: Reports: No Limitations - History of Present Illness Initial Comments - Free Text/Narative: The patient is a 54-year-old gentleman who was admitted to acute hospitalization yesterday secondary to congestive heart failure exacerbation. The patient has a history of cardiomegaly with an ejection fraction of 10 to 15%. He also has an AICD placed. The patient is not sure what caused his heart failure he reportedly was told that he had a heart attack but denies any symptoms of this. He relates the heart failure due to infection in his abdomen. In the emergency room the patient's B-type natriuretic peptide was greater than 35,000. The patient came in primarily because of right upper quadrant abdominal pain which was thought to be secondary to a calculus cholecystitis. A CT scan through the emergency department shows a dilated gallbladder currently pending radiologist review. The patient reports that he had been previously evaluated by a surgeon in [place] with regards to his possible cholecystectomy. The patient also says that he had injured his fingers, crushing injury with open fracture on October 10, 2020 and had gotten lost to follow-up. Patient also says that because of the abdominal pain that he has been unable to take his medication for his congestive heart failure. The patient says that the pain in his abdomen has been exaggerated primarily by exertion. He reports it is constant, sharp and is only relieved by narcotic pain medications. The patient still continues to smoke and has a approximately 40-year of smoking history. Onset of Symptoms: Reports: Gradual Duration of Symptoms: Reports: Day(s):, Getting Worse Location: Reports: Abdomen Quality: Reports: Ache, Burning, Stabbing Severity: Severe Improves with: Reports: Medication Worsens with: Reports: Movement Associated Symptoms: Reports: Nausea/Vomiting, Shortness of Breath Middle Abdomen Pain Score (Numeric/FACES): 8 - Related Data Allergies/Adverse Reactions: Allergies Allergy/AdvReac Type Severity Reaction Status Date / Time shellfish derived Allergy Intermediate Hives Verified 10/19/20 01:51 codeine AdvReac Mild Hyperactivi Verified 10/19/20 01:51 ty Home Medications: Home Meds Albuterol Sulfate [Proair Hfa] 2 puff INH TID PRN 07/02/18 [History] Furosemide [Lasix] 40 mg PO BID 07/02/18 [History] atorvaSTATin [Lipitor] 10 mg PO BEDTIME 07/02/18 [History] Digoxin 250 mcg PO DAILY 08/11/20 [History] Metoprolol Succinate 75 mg PO BID 08/11/20 [History] Cholecalciferol (Vitamin D3) [Vitamin D3] 5,000 unit PO DAILY #30 cap 08/14/20 [Rx] Spironolactone [Aldactone] 25 mg PO DAILY 10/19/20 [History] Past Medical History HEENT History: Reports: Other (See Below) (Edentulous) Cardiovascular History: Reports: Automatic Implantable Cardioverter Defibrillators, Heart Failure, High Cholesterol, Hypertension, PR, SOB on Exertion Respiratory History: Reports: Asthma, COPD, SOB Gastrointestinal History: Reports: Cholelithiasis Genitourinary History: Reports: Retention, Urinary Musculoskeletal History: Reports: Other (See Below) (Subacute right hand injury, October 2020) Neurological History: Reports: None Psychiatric History: Reports: Anxiety Endocrine/Metabolic History: Reports: Vitamin D Deficiency Hematologic History: Reports: None - Infectious Disease History Infectious Disease History: Reports: Chicken Pox, Measles, Mumps - Past Surgical History Cardiovascular Surgical History: Reports: AICD Other GI Surgeries/Procedures: 6 inches of colon removed in 2013 Musculoskeletal Surgical History: Reports: Amputation, Other (See Below) Other Musculoskeletal Surgeries/Procedures:: Tip of finger amputated. Social & Family History - Family History Family Medical History: No Pertinent Family History - Tobacco Use Tobacco Use Status *Q: Current Status Unknown Years of Tobacco use: 40 Packs/Tins Daily: 0.5 Second Hand Smoke Exposure: No - Caffeine Use Caffeine Use: Reports: None - Recreational Drug Use Recreational Drug Use: No H&P Review of Systems - Review of Systems: Review Of Systems: See Below General: Reports: Weakness, Fatigue HEENT: Reports: No Symptoms Pulmonary: Reports: Shortness of Breath Cardiovascular: Reports: No Symptoms Gastrointestinal: Reports: Abdominal Pain, Decreased Appetite, Nausea Genitourinary: Reports: No Symptoms Musculoskeletal: Reports: Hand Pain (Right hand pain) Skin: Reports: Dryness Psychiatric: Reports: No Symptoms Neurological: Reports: No Symptoms Hematologic/Lymphatic: Reports: No Symptoms Immunologic: Reports: No Symptoms Exam - Exam Exam: See Below - Vital Signs Vital Signs: Last Vital Signs Temp 36.1 C 10/19/20 04:00 Pulse 122 H 10/19/20 06:00 Resp 17 10/19/20 06:00 BP 134/95 H 10/19/20 05:01 Pulse Ox 98 10/19/20 06:00 Weight: 67.812 kg - Exam Quality Assessment: No: Supplemental Oxygen General: Alert, Oriented, Moderate Distress HEENT: Conjunctiva Clear, EOMI, PERRLA. No: Mucosa Moist & Bracey (Very dry, edentulous) Neck: Supple, Trachea Midline Lungs: Decreased Breath Sounds, Rales, Other (Increased AP diameter, AICD) Cardiovascular: Regular Rhythm, Tachycardia GI/Abdominal Exam: Normal Bowel Sounds, Soft, Guarding, Tender (Right upper quadrant) (Male) Exam: Deferred Rectal (Males) Exam: Deferred Back Exam: Normal Inspection, Full Range of Motion Extremities: Normal Inspection, No Pedal Edema Skin: Warm, Dry, Intact Neurological: Cranial Nerves Intact, Strength Equal Bilateral, Normal Speech, Normal Tone Neuro Extensive - Mental Status: Alert, Oriented x3 Neuro Extensive - Motor, Sensory, Reflexes: CN II-XII Intact Psychiatric: Alert, Normal Affect, Normal Mood - Patient Data Lab Results Last 24 hrs: Laboratory Results - last 24 hr 10/18/20 10/18/20 10/18/20 Range/Units 20:45 20:45 20:45 WBC 9.09 H (4.23-9.07) K/mm3 RBC 4.63 (4.63-6.08) M/mm3 Hgb 12.2 L (13.7-17.5) gm/dl Hct 38.8 L (40.1-51.0) % MCV 83.8 (79.0-92.2) fl MCH 26.3 (25.7-32.2) pg MCHC 31.4 L (32.2-35.5) g/dl RDW Std Deviation 53.0 H (35.1-43.9) fL Plt Count 293 D (163-337) K/mm3 MPV 9.2 L (9.4-12.3) fl Neut % (Auto) 66.3 (34.0-67.9) % Lymph % (Auto) 26.1 (21.8-53.1) % [place] % (Auto) 5.2 L (5.3-12.2) % Eos % (Auto) 1.9 (0.8-7.0) Baso % (Auto) 0.4 (0.1-1.2) % Neut # (Auto) 6.03 H (1.78-5.38) K/mm3 Lymph # (Auto) 2.37 (1.32-3.57) K/mm3 [place] # (Auto) 0.47 (0.30-0.82) K/mm3 Eos # (Auto) 0.17 (0.04-0.54) K/mm3 Baso # (Auto) 0.04 (0.01-0.08) K/mm3 PT (9.7-12.0) SECONDS INR Sodium 139 (136-145) mEq/L Potassium 4.1 (3.5-5.1) mEq/L Chloride 103 (98-107) mEq/L Carbon Dioxide 22 (21-32) mEq/L Anion Gap 18.1 H (5-15) BUN 26 H (7-18) mg/dL Creatinine 1.4 H (0.7-1.3) mg/dL Est Cr Clr Drug Dosing 54.43 mL/min Estimated GFR (MDRD) 53 (>60) mL/min BUN/Creatinine Ratio 18.6 H (14-18) Glucose 97 (74-106) mg/dL Lactic Acid (0.4-2.0) mmol/L Calcium 9.0 (8.5-10.1) mg/dL Total Bilirubin 1.8 H (0.2-1.0) mg/dL AST 30 (15-37) U/L ALT 35 (16-63) U/L Alkaline Phosphatase 59 (46-116) U/L Troponin I 0.183 H* (0.00-0.056) ng/mL NT-Pro-B Natriuret Pep > 67161 H (0-125) pg/mL Total Protein 6.9 (6.4-8.2) g/dl Albumin 3.1 L (3.4-5.0) g/dl Globulin 3.8 gm/dL Albumin/Globulin Ratio 0.8 L (1-2) Lipase 64 L (73-393) U/L SARS-CoV-2 RNA ([facility]GET[facility]) (NEGATIVE) 10/18/20 10/18/20 10/18/20 Range/Units 20:45 20:55 20:58 WBC (4.23-9.07) K/mm3 RBC (4.63-6.08) M/mm3 Hgb (13.7-17.5) gm/dl Hct (40.1-51.0) % MCV (79.0-92.2) fl MCH (25.7-32.2) pg MCHC (32.2-35.5) g/dl RDW Std Deviation (35.1-43.9) fL Plt Count (163-337) K/mm3 MPV (9.4-12.3) fl Neut % (Auto) (34.0-67.9) % Lymph % (Auto) (21.8-53.1) % [place] % (Auto) (5.3-12.2) % Eos % (Auto) (0.8-7.0) Baso % (Auto) (0.1-1.2) % Neut # (Auto) (1.78-5.38) K/mm3 Lymph # (Auto) (1.32-3.57) K/mm3 [place] # (Auto) (0.30-0.82) K/mm3 Eos # (Auto) (0.04-0.54) K/mm3 Baso # (Auto) (0.01-0.08) K/mm3 PT 12.6 H (9.7-12.0) SECONDS INR 1.18 Sodium (136-145) mEq/L Potassium (3.5-5.1) mEq/L Chloride (98-107) mEq/L Carbon Dioxide (21-32) mEq/L Anion Gap (5-15) BUN (7-18) mg/dL Creatinine (0.7-1.3) mg/dL Est Cr Clr Drug Dosing mL/min Estimated GFR (MDRD) (>60) mL/min BUN/Creatinine Ratio (14-18) Glucose (74-106) mg/dL Lactic Acid 3.5 H* (0.4-2.0) mmol/L Calcium (8.5-10.1) mg/dL Total Bilirubin (0.2-1.0) mg/dL AST (15-37) U/L ALT (16-63) U/L Alkaline Phosphatase (46-116) U/L Troponin I (0.00-0.056) ng/mL NT-Pro-B Natriuret Pep (0-125) pg/mL Total Protein (6.4-8.2) g/dl Albumin (3.4-5.0) g/dl Globulin gm/dL Albumin/Globulin Ratio (1-2) Lipase (73-393) U/L SARS-CoV-2 RNA ([facility]) Negative (NEGATIVE) 10/18/20 Range/Units 23:55 WBC (4.23-9.07) K/mm3 RBC (4.63-6.08) M/mm3 Hgb (13.7-17.5) gm/dl Hct (40.1-51.0) % MCV (79.0-92.2) fl MCH (25.7-32.2) pg MCHC (32.2-35.5) g/dl RDW Std Deviation (35.1-43.9) fL Plt Count (163-337) K/mm3 MPV (9.4-12.3) fl Neut % (Auto) (34.0-67.9) % Lymph % (Auto) (21.8-53.1) % [place] % (Auto) (5.3-12.2) % Eos % (Auto) (0.8-7.0) Baso % (Auto) (0.1-1.2) % Neut # (Auto) (1.78-5.38) K/mm3 Lymph # (Auto) (1.32-3.57) K/mm3 [place] # (Auto) (0.30-0.82) K/mm3 Eos # (Auto) (0.04-0.54) K/mm3 Baso # (Auto) (0.01-0.08) K/mm3 PT (9.7-12.0) SECONDS INR Sodium (136-145) mEq/L Potassium (3.5-5.1) mEq/L Chloride (98-107) mEq/L Carbon Dioxide (21-32) mEq/L Anion Gap (5-15) BUN (7-18) mg/dL Creatinine (0.7-1.3) mg/dL Est Cr Clr Drug Dosing mL/min Estimated GFR (MDRD) (>60) mL/min BUN/Creatinine Ratio (14-18) Glucose (74-106) mg/dL Lactic Acid 1.9 (0.4-2.0) mmol/L Calcium (8.5-10.1) mg/dL Total Bilirubin (0.2-1.0) mg/dL AST (15-37) U/L ALT (16-63) U/L Alkaline Phosphatase (46-116) U/L Troponin I (0.00-0.056) ng/mL NT-Pro-B Natriuret Pep (0-125) pg/mL Total Protein (6.4-8.2) g/dl Albumin (3.4-5.0) g/dl Globulin gm/dL Albumin/Globulin Ratio (1-2) Lipase (73-393) U/L SARS-CoV-2 RNA ([facility]) (NEGATIVE) Result Diagrams: 10/19/20 06:25 10/19/20 06:25 Sepsis Event Note - Evaluation Sepsis Screening Result: No Definite Risk - Focused Exam Vital Signs: Vital Signs Temp Pulse Pulse Resp BP BP Pulse Ox 10/19/20 06:00 122 H 17 98 10/19/20 05:01 107 H 18 134/95 H 93 L 10/19/20 05:00 54 L 17 93 L 10/19/20 04:01 111 H 16 122/93 H 93 L 10/19/20 04:00 36.1 C 114 H 18 91 L 10/19/20 03:01 19 90 L 10/19/20 03:00 109 H 21 H 101/70 87 L 10/19/20 02:59 104 H 23 H 89 L 10/19/20 02:15 58 L 19 133/91 H 91 L 10/19/20 02:14 114 H 18 92 L 10/19/20 02:01 57 L 21 H 94 L 10/19/20 02:00 58 L 20 132/101 H 95 10/19/20 01:59 115 H 18 95 10/19/20 01:45 56 L 22 H 136/94 H 99 10/19/20 01:44 40 L 17 98 10/19/20 01:30 114 H 13 139/100 H 97 10/19/20 01:29 115 H 19 97 10/19/20 01:26 114 H 13 139/101 H 98 04/11/21 01:25 112 H 13 97 10/19/20 01:09 116 H 21 H 94 L 10/18/20 20:22 36.1 C 125 H 16 178/124 H 99 - Problem List (1) Cholecystitis SNOMED Code(s): 82180514 ICD Code: K81.9 - CHOLECYSTITIS, UNSPECIFIED Status: Acute Priority: High Current Visit: Yes (2) Cardiac LV ejection fraction 10-20% SNOMED Code(s): 874836801, 706522704 ICD Code: R09.89 - OTH SYMPTOMS AND SIGNS INVOLVING THE CIRC AND RESP SYSTEMS Status: Chronic Priority: High Current Visit: Yes (3) Congestive heart failure SNOMED Code(s): 51968802 ICD Code: I50.9 - HEART FAILURE, UNSPECIFIED Status: Chronic Priority: High Current Visit: Yes Qualifiers: Heart failure type: systolic Heart failure chronicity: acute on chronic Qualified Code(s): I50.23 - Acute on chronic systolic (congestive) heart failure (4) Fracture of finger, middle phalanx, right, open SNOMED Code(s): 496167600, 95595677601544513 ICD Code: S62.629B - DISP FX OF MIDDLE PHALANX OF UNSPECIFIED FINGER, 7THB Status: Acute Priority: Medium Current Visit: No Qualifiers: Encounter type: subsequent encounter Finger: ring finger Fracture alignment: nondisplaced (5) Left bundle branch block (LBBB) determined by electrocardiography SNOMED Code(s): 797764798 ICD Code: I44.7 - LEFT BUNDLE-BRANCH BLOCK, UNSPECIFIED Status: Chronic Priority: High Current Visit: Yes (6) Troponin I above reference range SNOMED Code(s): 980759274 ICD Code: R77.8 - OTHER SPECIFIED ABNORMALITIES OF PLASMA PROTEINS Status: Chronic Priority: High Current Visit: Yes (7) Chronic kidney disease (CKD) stage G2/A2, mildly decreased glomerular filtration rate (GFR) between 60-89 mL/min/1.73 square meter and albuminuria creatinine ratio between 30-299 mg/g SNOMED Code(s): 643579988, 978852296, 683168324, 952833356 ICD Code: N18.2 - CHRONIC KIDNEY DISEASE, STAGE 2 (MILD) Status: Chronic Priority: Medium Current Visit: Yes (8) COPD (chronic obstructive pulmonary disease) with emphysema SNOMED Code(s): 85082017 ICD Code: J43.9 - EMPHYSEMA, UNSPECIFIED Status: Chronic Priority: Medium Current Visit: Yes Qualifiers: Emphysema type: unspecified Qualified Code(s): J43.9 - Emphysema, unspecified Problem List Initiated/Reviewed/Updated: Yes Orders Last 24hrs: Active Orders 24 hr Category Date Time Status Patient Status [ADT] Routine ADT 10/19/20 00:44 Active Up With Assistance [RC] ASDIRECTED Care 10/19/20 01:05 Active Clear Liquid Diet [DIET] Diet 10/19/20 Breakfast Active Abdomen Ltd [US] Stat Exams 10/18/20 20:41 Taken Abdomen Pelvis wo Cont [CT] Stat Exams 10/18/20 20:49 Taken CXR [Chest 1V Frontal] [CR] Stat Exams 10/18/20 20:41 Taken BASIC METABOLIC PANEL,BMP [CHEM] Routine Lab 10/19/20 05:30 Ordered CBC WITH AUTO DIFF [HEME] Routine Lab 10/19/20 05:30 Ordered CULTURE BLOOD [BC] Stat Lab 10/18/20 20:55 Received CULTURE BLOOD [BC] Stat Lab 10/18/20 21:08 Received LACTIC ACID [CHEM] Routine Lab 10/19/20 05:30 Ordered TROPONIN I [CHEM] Routine Lab 10/19/20 05:30 Ordered HYDROmorphone [Dilaudid] Med 10/19/20 01:06 Active 0.25 mg IVPUSH Q2H PRN Ondansetron [Zofran] Med 10/19/20 01:05 Active 4 mg IVPUSH Q8H PRN Sodium Chloride 0.9% [Saline Flush] Med 10/18/20 20:41 Active 10 ml FLUSH ASDIRECTED PRN Blood Culture x2 Reflex Set [OM.PC] Stat Oth 10/18/20 20:42 Ordered Peripheral IV Insertion Adult [OM.PC] Routine Oth 10/18/20 20:40 Ordered Resuscitation Status Routine Resus Stat 10/19/20 01:05 Ordered Medication Orders Hydromorphone HCl (Hydromorphone 0.5 Mg/0.5 Ml Syringe) 0.25 mg IVPUSH Q2H PRN PRN Reason: Pain Last Admin: 04/11/21 01:21 Dose: 0.25 mg Documented by: EBONIE Ondansetron HCl (Ondansetron 4 Mg/2 Ml Sdv) 4 mg IVPUSH Q8H PRN PRN Reason: Nausea Last Admin: 10/19/20 01:21 Dose: 4 mg Documented by: EBONIE Sodium Chloride (Sodium Chloride 0.9% 10 Ml Syringe) 10 ml FLUSH ASDIRECTED PRN PRN Reason: Keep Vein Open Last Admin: 10/18/20 20:55 Dose: 10 ml Documented by: ANTWAN Assessment/Plan Comment:: The patient is a medically complex 54-year-old gentleman who has been admitted essentially for management of his acute exacerbation of his congestive heart failure. The patient's overriding concern is his abdominal pain and unable to take his oral medications. His oral medications have been restarted. The patient previously in August 2020 have been diagnosed with acalculus cholecystitis. Akinesis of his gallbladder has not been excluded. Results of the previously imaged CT scan of his abdomen and pelvis as well as the ultrasound of his gallbladder have been reviewed personally and are currently pending radiology overview. I have increased the patient's pain medication from Dilaudid 0.25 mg every 2 hours to Dilaudid 1 mg IV every 2 hours as needed for pain. The patient will also have repeat IV Lasix 40 mg to assist with his status. This will be dependent upon the patient's blood pressure. Telemetry the patient's blood pressure was 97/58 and the Lasix will be held. The patient also had been previously diagnosed with severe COPD. Because of the patient's severe comorbidities including CHF and COPD the patient will be better served by surgery evaluation and cardiology evaluation at tertiary [facility]. I had a phone conversation with physician and [facility] in [place], Dr. Sylvester, hospitalist who will accept patient and the patient will be discharged to tertiary [facility] for further evaluation and treatment. - Mortality Measure Prognosis:: Good
[2020-10-19] MEDS ORDERED: Albuterol 6.7 GM Inhaler INH PRN (07:30)
[2020-10-19] MEDS: HYDROmorphone 1 MG/ML Syringe IVPUSH PRN ×2 (07:53→12:13)
[2020-10-19] MEDS ORDERED: Metoprolol Succinate 25 MG Tab.ER PO SCH (09:00)
[2020-10-19] MEDS ORDERED: Spironolactone 25 MG Tab PO SCH (09:00)
[2020-10-19] MEDS ORDERED: Furosemide 40 MG Tab PO SCH (09:00)
--- NOTE | 2020-10-19 09:25 | PCM.DCSUM1 ---
Discharge Summary - Hospital Course Free Text/Narrative:: Admitted for abdominal pain, worsening CHF Diagnosis: Stroke: No - Discharge Data Discharge Date: 10/19/20 Discharge Disposition: DC/Tfer to Acute Hospital 02 Condition: Fair - Referral to Home Health Primary Care Physician: Poppy Trujillo MD - Discharge Diagnosis/Problem(s) (1) Cholecystitis SNOMED Code(s): 09350295 ICD Code: K81.9 - CHOLECYSTITIS, UNSPECIFIED Status: Acute Priority: High Current Visit: Yes (2) Cardiac LV ejection fraction 10-20% SNOMED Code(s): 936048637, 598117853 ICD Code: R09.89 - OTH SYMPTOMS AND SIGNS INVOLVING THE CIRC AND RESP SYSTEMS Status: Chronic Priority: High Current Visit: Yes (3) Congestive heart failure SNOMED Code(s): 29205984 ICD Code: I50.9 - HEART FAILURE, UNSPECIFIED Status: Chronic Priority: High Current Visit: Yes Qualifiers: Heart failure type: systolic Heart failure chronicity: acute on chronic Qualified Code(s): I50.23 - Acute on chronic systolic (congestive) heart failure (4) Fracture of finger, middle phalanx, right, open SNOMED Code(s): 137543178, [id number] ICD Code: S62.629B - DISP FX OF MIDDLE PHALANX OF UNSPECIFIED FINGER, 7THB Status: Acute Priority: Medium Current Visit: No Qualifiers: Encounter type: subsequent encounter Finger: ring finger Fracture alignment: nondisplaced (5) Left bundle branch block (LBBB) determined by electrocardiography SNOMED Code(s): 162697583 ICD Code: I44.7 - LEFT BUNDLE-BRANCH BLOCK, UNSPECIFIED Status: Chronic Priority: High Current Visit: Yes (6) Troponin I above reference range SNOMED Code(s): 422922688 ICD Code: R77.8 - OTHER SPECIFIED ABNORMALITIES OF PLASMA PROTEINS Status: Chronic Priority: High Current Visit: Yes (7) Chronic kidney disease (CKD) stage G2/A2, mildly decreased glomerular filtration rate (GFR) between 60-89 mL/min/1.73 square meter and albuminuria creatinine ratio between 30-299 mg/g SNOMED Code(s): 199953689, 489081009, 968767654, 750615430 ICD Code: N18.2 - CHRONIC KIDNEY DISEASE, STAGE 2 (MILD) Status: Chronic Priority: Medium Current Visit: Yes (8) COPD (chronic obstructive pulmonary disease) with emphysema SNOMED Code(s): 07292108 ICD Code: J43.9 - EMPHYSEMA, UNSPECIFIED Status: Chronic Priority: Medium Current Visit: Yes Qualifiers: Emphysema type: unspecified Qualified Code(s): J43.9 - Emphysema, unspec ified - Patient Summary/Data Hospital Course: The patient is a 54-year-old gentleman who was admitted to acute hospitalization yesterday secondary to congestive heart failure exacerbation. The patient has a history of cardiomegaly with an ejection fraction of 10 to 15%. He also has an AICD placed. The patient is not sure what caused his heart failure he reportedly was told that he had a heart attack but denies any symptoms of this. He relates the heart failure due to infection in his abdomen. In the emergency room the patient's B-type natriuretic peptide was greater than 35,000. The patient came in primarily because of right upper quadrant abdominal pain which was thought to be secondary to a calculus cholecystitis. A CT scan through the emergency department shows a dilated gallbladder currently pending radiologist review. The patient reports that he had been previously evaluated by a surgeon in [place] with regards to his possible cholecystectomy. The patient also says that he had injured his fingers, crushing injury with open fracture on October 10, 2020 and had gotten lost to follow-up. Patient also says that because of the ab dominal pain that he has been unable to take his medication for his congestive heart failure. The patient says that the pain in his abdomen has been exaggerated primarily by exertion. He reports it is constant, sharp and is only relieved by narcotic pain medications. The patient still continues to smoke and has a approximately 40-year of smoking history. The patient previously in August 2020 have been diagnosed with acalculus cholecystitis. Akinesis of his gallbladder has not been excluded. Results of the previously imaged CT scan of his abdomen and pelvis as well as the ultrasound of his gallbladder have been reviewed personally and are currently pending radiology overview. I have increased the patient's pain medication from Dilaudid 0.25 mg every 2 hours to Dilaudid 1 mg IV every 2 hours as needed for pain. The patient will also have repeat IV Lasix 40 mg to assist with his status. This will be dependent upon the patient's blood pressure. Telemetry the patient's blood pressure was 97/58 and the Lasix will be held. The patient also had been previously diagnosed with severe COPD. The patients troponin is elevated at 0.199. Because of the patient's severe comorbidities including CHF and COPD the patient will be better served by surgery evaluation and cardiology evaluation at tertiary [facility]. I had a phone conversation with physician and [facility] in [place], Dr. Sylvester, hospitalist who will accept patient and the patient will be discharged to [facility] for further evaluation and treatment. - Patient Instructions Diet: NPO Fluid Restriction: 1500 mL - Discharge Plan *PRESCRIPTION DRUG MONITORING PROGRAM REVIEWED*: No *COPY OF PRESCRIPTION DRUG MONITORING REPORT IN PATIENT [place]: No Home Medications: Home Meds Albuterol Sulfate [Proair Hfa] 2 puff INH TID PRN 07/02/18 [History] Furosemide [Lasix] 40 mg PO BID 07/02/18 [History] atorvaSTATin [Lipitor] 10 mg PO BEDTIME 07/02/18 [History] Digoxin 250 mcg PO DAILY 08/11/20 [History] Metoprolol Succinate 75 mg PO BID 08/11/20 [History] Cholecalciferol (Vitamin D3) [Vitamin D3] 5,000 unit PO DAILY #30 cap 08/14/20 [Rx] Spironolactone [Aldactone] 25 mg PO DAILY 10/19/20 [History] Oxygen Therapy Mode: Room Air - Discharge Summary/Plan Comment DC Time >30 min.: Yes - General Info Date of Service: 10/19/20 Admission Dx/Problem (Free Text: Admission Diagnosis/Problem Admission Diagnosis/Problem Abdominal pain, congestive heart failure exacerbation. Subjective Update: The patient's pain has been better controlled with the use of Dilaudid 1 mg IV every 2 hours as needed. He is still not able to take his medications. Functional Status: Denies: Pain Controlled - Review of Systems General: Reports: Fatigue HEENT: Reports: No Symptoms Pulmonary: Reports: Shortness of Breath Cardiovascular: Reports: No Symptoms Gastrointestinal: Reports: Abdominal Pain Genitourinary: Reports: No Symptoms Musculoskeletal: Reports: No Symptoms Skin: Reports: No Symptoms Neurological: Reports: No Symptoms Psychiatric: Reports: No Symptoms - Patient Data Vitals - Most Recent: Last Vital Signs Temp 36.1 C 10/19/20 04:00 Pulse 107 H 10/19/20 08:01 Resp 13 10/19/20 08:01 BP 148/96 H 10/19/20 08:01 Pulse Ox 96 10/19/20 08:01 Weight - Most Recent: 67.812 kg I&O - Last 24 hours: Intake & Output 10/18/20 10/19/20 10/19/20 22:59 06:59 14:59 Intake Total 200 Output Total 2500 Balance -2300 Lab Results - Last 24 hrs: Laboratory Results - last 24 hr 10/18/20 10/18/20 10/18/20 Range/Units 20:45 20:45 20:45 WBC 9.09 H (4.23-9.07) K/mm3 RBC 4.63 (4.63-6.08) M/mm3 Hgb 12.2 L (13.7-17.5) gm/dl Hct 38.8 L (40.1-51.0) % MCV 83.8 (79.0-92.2) fl MCH 26.3 (25.7-32.2) pg MCHC 31.4 L (32.2-35.5) g/dl RDW Std Deviation 53.0 H (35.1-43.9) fL Plt Count 293 D (163-337) K/mm3 MPV 9.2 L (9.4-12.3) fl Neut % (Auto) 66.3 (34.0-67.9) % Lymph % (Auto) 26.1 (21.8-53.1) % [place] % (Auto) 5.2 L (5.3-12.2) % Eos % (Auto) 1.9 (0.8-7.0) Baso % (Auto) 0.4 (0.1-1.2) % Neut # (Auto) 6.03 H (1.78-5.38) K/mm3 Lymph # (Auto) 2.37 (1.32-3.57) K/mm3 [place] # (Auto) 0.47 (0.30-0.82) K/mm3 Eos # (Auto) 0.17 (0.04-0.54) K/mm3 Baso # (Auto) 0.04 (0.01-0.08) K/mm3 PT (9.7-12.0) SECONDS INR Sodium 139 (136-145) mEq/L Potassium 4.1 (3.5-5.1) mEq/L Chloride 103 (98-107) mEq/L Carbon Dioxide 22 (21-32) mEq/L Anion Gap 18.1 H (5-15) BUN 26 H (7-18) mg/dL Creatinine 1.4 H (0.7-1.3) mg/dL Est Cr Clr Drug Dosing 54.43 mL/min Estimated GFR (MDRD) 53 (>60) mL/min BUN/Creatinine Ratio 18.6 H (14-18) Glucose 97 (74-106) mg/dL Lactic Acid (0.4-2.0) mmol/L Calcium 9.0 (8.5-10.1) mg/dL Total Bilirubin 1.8 H (0.2-1.0) mg/dL AST 30 (15-37) U/L ALT 35 (16-63) U/L Alkaline Phosphatase 59 (46-116) U/L Troponin I 0.183 H* (0.00-0.056) ng/mL NT-Pro-B Natriuret Pep > 44675 H (0-125) pg/mL Total Protein 6.9 (6.4-8.2) g/dl Albumin 3.1 L (3.4-5.0) g/dl Globulin 3.8 gm/dL Albumin/Globulin Ratio 0.8 L (1-2) Lipase 64 L (73-393) U/L SARS-CoV-2 RNA ([facility]) (NEGATIVE) 10/18/20 10/18/20 10/18/20 Range/Units 20:45 20:55 20:58 WBC (4.23-9.07) K/mm3 RBC (4.63-6.08) M/mm3 Hgb (13.7-17.5) gm/dl Hct (40.1-51.0) % MCV (79.0-92.2) fl MCH (25.7-32.2) pg MCHC (32.2-35.5) g/dl RDW Std Deviation (35.1-43.9) fL Plt Count (163-337) K/mm3 MPV (9.4-12.3) fl Neut % (Auto) (34.0-67.9) % Lymph % (Auto) (21.8-53.1) % [place] % (Auto) (5.3-12.2) % Eos % (Auto) (0.8-7.0) Baso % (Auto) (0.1-1.2) % Neut # (Auto) (1.78-5.38) K/mm3 Lymph # (Auto) (1.32-3.57) K/mm3 [place] # (Auto) (0.30-0.82) K/mm3 Eos # (Auto) (0.04-0.54) K/mm3 Baso # (Auto) (0.01-0.08) K/mm3 PT 12.6 H (9.7-12.0) SECONDS INR 1.18 Sodium (136-145) mEq/L Potassium (3.5-5.1) mEq/L Chloride (98-107) mEq/L Carbon Dioxide (21-32) mEq/L Anion Gap (5-15) BUN (7-18) mg/dL Creatinine (0.7-1.3) mg/dL Est Cr Clr Drug Dosing mL/min Estimated GFR (MDRD) (>60) mL/min BUN/Creatinine Ratio (14-18) Glucose (74-106) mg/dL Lactic Acid 3.5 H* (0.4-2.0) mmol/L Calcium (8.5-10.1) mg/dL Total Bilirubin (0.2-1.0) mg/dL AST (15-37) U/L ALT (16-63) U/L Alkaline Phosphatase (46-116) U/L Troponin I (0.00-0.056) ng/mL NT-Pro-B Natriuret Pep (0-125) pg/mL Total Protein (6.4-8.2) g/dl Albumin (3.4-5.0) g/dl Globulin gm/dL Albumin/Globulin Ratio (1-2) Lipase (73-393) U/L SARS-CoV-2 RNA ([facility]) Negative (NEGATIVE) 10/18/20 10/19/20 10/19/20 Range/Units 23:55 06:25 06:25 WBC 7.64 (4.23-9.07) K/mm3 RBC 4.68 (4.63-6.08) M/mm3 Hgb 12.0 L (13.7-17.5) gm/dl Hct 39.7 L (40.1-51.0) % MCV 84.8 (79.0-92.2) fl MCH 25.6 L (25.7-32.2) pg MCHC 30.2 L (32.2-35.5) g/dl RDW Std Deviation 54.0 H (35.1-43.9) fL Plt Count 262 (163-337) K/mm3 MPV 9.1 L (9.4-12.3) fl Neut % (Auto) 57.2 (34.0-67.9) % Lymph % (Auto) 29.7 (21.8-53.1) % [place] % (Auto) 8.2 (5.3-12.2) % Eos % (Auto) 4.1 (0.8-7.0) Baso % (Auto) 0.8 (0.1-1.2) % Neut # (Auto) 4.37 (1.78-5.38) K/mm3 Lymph # (Auto) 2.27 (1.32-3.57) K/mm3 [place] # (Auto) 0.63 (0.30-0.82) K/mm3 Eos # (Auto) 0.31 (0.04-0.54) K/mm3 Baso # (Auto) 0.06 (0.01-0.08) K/mm3 PT (9.7-12.0) SECONDS INR Sodium 142 (136-145) mEq/L Potassium 3.8 (3.5-5.1) mEq/L Chloride 104 (98-107) mEq/L Carbon Dioxide 27 (21-32) mEq/L Anion Gap 14.8 (5-15) BUN 28 H (7-18) mg/dL Creatinine 1.5 H (0.7-1.3) mg/dL Est Cr Clr Drug Dosing 50.80 mL/min Estimated GFR (MDRD) 49 (>60) mL/min BUN/Creatinine Ratio 18.7 H (14-18) Glucose 79 (74-106) mg/dL Lactic Acid 1.9 (0.4-2.0) mmol/L Calcium 8.5 (8.5-10.1) mg/dL Total Bilirubin (0.2-1.0) mg/dL AST (15-37) U/L ALT (16-63) U/L Alkaline Phosphatase (46-116) U/L Troponin I 0.199 H* (0.00-0.056) ng/mL NT-Pro-B Natriuret Pep (0-125) pg/mL Total Protein (6.4-8.2) g/dl Albumin (3.4-5.0) g/dl Globulin gm/dL Albumin/Globulin Ratio (1-2) Lipase (73-393) U/L SARS-CoV-2 RNA ([facility]) (NEGATIVE) 10/19/20 Range/Units 06:25 WBC (4.23-9.07) K/mm3 RBC (4.63-6.08) M/mm3 Hgb (13.7-17.5) gm/dl Hct (40.1-51.0) % MCV (79.0-92.2) fl MCH (25.7-32.2) pg MCHC (32.2-35.5) g/dl RDW Std Deviation (35.1-43.9) fL Plt Count (163-337) K/mm3 MPV (9.4-12.3) fl Neut % (Auto) (34.0-67.9) % Lymph % (Auto) (21.8-53.1) % [place] % (Auto) (5.3-12.2) % Eos % (Auto) (0.8-7.0) Baso % (Auto) (0.1-1.2) % Neut # (Auto) (1.78-5.38) K/mm3 Lymph # (Auto) (1.32-3.57) K/mm3 [place] # (Auto) (0.30-0.82) K/mm3 Eos # (Auto) (0.04-0.54) K/mm3 Baso # (Auto) (0.01-0.08) K/mm3 PT (9.7-12.0) SECONDS INR Sodium (136-145) mEq/L Potassium (3.5-5.1) mEq/L Chloride (98-107) mEq/L Carbon Dioxide (21-32) mEq/L Anion Gap (5-15) BUN (7-18) mg/dL Creatinine (0.7-1.3) mg/dL Est Cr Clr Drug Dosing mL/min Estimated GFR (MDRD) (>60) mL/min BUN/Creatinine Ratio (14-18) Glucose (74-106) mg/dL Lactic Acid 1.3 (0.4-2.0) mmol/L Calcium (8.5-10.1) mg/dL Total Bilirubin (0.2-1.0) mg/dL AST (15-37) U/L ALT (16-63) U/L Alkaline Phosphatase (46-116) U/L Troponin I (0.00-0.056) ng/mL NT-Pro-B Natriuret Pep (0-125) pg/mL Total Protein (6.4-8.2) g/dl Albumin (3.4-5.0) g/dl Globulin gm/dL Albumin/Globulin Ratio (1-2) Lipase (73-393) U/L SARS-CoV-2 RNA ([facility]) (NEGATIVE) Med Orders - Current: Current Medications Albuterol (Albuterol 6.7 Gm Inhaler) 0 gm INH TID PRN PRN Reason: Shortness of Breath Digoxin (Digoxin 250 Mcg Tab) 250 mcg PO DAILY@1200 REGINE Furosemide (Furosemide 40 Mg Tab) 40 mg PO BID [facility] Last Admin: 10/19/20 07:59 Dose: 40 mg Documented by: Hydromorphone HCl (Hydromorphone 0.5 Mg/0.5 Ml Syringe) 0.25 mg IVPUSH Q2H PRN PRN Reason: Pain Last Admin: 10/19/20 01:21 Dose: 0.25 mg Documented by: Hydromorphone HCl (Hydromorphone 1 Mg/Ml Syringe) 1 mg IVPUSH Q2H PRN PRN Reason: Pain Last Admin: 10/19/20 07:53 Dose: 1 mg Documented by: Metoprolol Succinate (Metoprolol Succinate 25 Mg Tab.Er) 75 mg PO BID [facility] Last Admin: 10/19/20 08:01 Dose: 75 mg Documented by: Ondansetron HCl (Ondansetron 4 Mg/2 Ml Sdv) 4 mg IVPUSH Q8H PRN PRN Reason: Nausea Last Admin: 10/19/20 07:54 Dose: 4 mg Documented by: Sodium Chloride (Sodium Chloride 0.9% 10 Ml Syringe) 10 ml FLUSH ASDIRECTED PRN PRN Reason: Keep Vein Open Last Admin: 10/18/20 20:55 Dose: 10 ml Documented by: Spironolactone (Spironolactone 25 Mg Tab) 25 mg PO DAILY [facility]INE Last Admin: 10/19/20 07:59 Dose: 25 mg Documented by: Discontinued Medications Furosemide (Furosemide 20 Mg/2 Ml Vial) 40 mg IVPUSH ONETIME ONE Stop: 10/19/20 01:08 Last Admin: 10/19/20 01:21 Dose: 40 mg Documented by: Hydromorphone HCl (Hydromorphone 0.5 Mg/0.5 Ml Syringe) 0.25 mg IVPUSH ONETIME ONE Stop: 10/18/20 20:43 Last Admin: 10/18/20 20:56 Dose: 0.25 mg Documented by: Hydromorphone HCl (Hydromorphone 0.5 Mg/0.5 Ml Syringe) 0.25 mg IVPUSH ONETIME ONE Stop: 10/18/20 22:56 Last Admin: 10/18/20 23:07 Dose: 0.25 mg Documented by: Ondansetron HCl (Ondansetron 4 Mg/2 Ml Sdv) 4 mg IVPUSH ONETIME ONE Stop: 10/18/20 20:43 Last Admin: 10/18/20 20:54 Dose: 4 mg Documented by: - Exam Quality Assessment: Reports: Supplemental Oxygen General: Reports: Alert, Oriented, Mild Distress, Other (Appears much older than stated age) HEENT: Reports: Pupils Equal, Pupils Reactive Neck: Reports: Supple, Trachea Midline Lungs: Reports: Decreased Breath Sounds, Rales Cardiovascular: Reports: Regular Rhythm, Tachycardia GI/Abdominal Exam: Normal Bowel Sounds, Tender (Tender right upper quadrant) (Male) Exam: Deferred Rectal (Males) Exam: Deferred Back Exam: Reports: Normal Inspection Extremities: Normal Inspection, No Pedal Edema Skin: Reports: Warm, Dry, Intact Neurological: Reports: No New Focal Deficit Psy/Mental Status: Reports: Alert, Normal Affect
--- NOTE | 2020-10-19 10:42 | US ---
Limited abdominal ultrasound: Multiple real-time images were obtained of the upper right abdomen. Liver shows no focal abnormality. Small amount of fluid is seen within the gallbladder fossa around the gallbladder wall. No gallbladder wall thickening or biliary duct dilatation is seen. Pancreas shows no discrete abnormality. Proximal aorta has an AP dimension of 3.0 cm. Right kidney shows 2 small cysts measuring 1.1 cm and 1.8 cm. Right kidney has a length of 8.5 cm. Inferior vena cava is patent. Main portal vein shows normal hepatopedal flow. Impression: 1. Minimal fluid within the gallbladder fossa next to the gallbladder wall. No other gallbladder abnormalities are seen. This is of questionable significance. 2. Two small right-sided renal cyst. Nothing acute is otherwise seen. Diagnostic code #2 I agree with preliminary report from [facility], finalized on 10/18/20, 11:09 PM CDT
--- NOTE | 2020-10-19 11:10 | CR ---
Chest: Portable view of the chest was obtained. Comparison: Prior chest x-ray of 09/12/20. Heart is enlarged. AICD is present. Pulmonary vessels are slightly increased but appear stable. No acute parenchymal change is otherwise seen. No acute osseous abnormality is appreciated. Impression: 1. Cardiomegaly and mild increased pulmonary vascular prominence which is stable from prior exam. 2. AICD. Nothing acute is seen. Diagnostic code #2
[2020-10-19] MEDS ORDERED: Digoxin 250 MCG Tab PO SCH (12:00)
--- NOTE | 2020-10-19 12:08 | CT ---
CT abdomen and pelvis Technique: Multiple axial sections were obtained from above the dome of the diaphragm inferiorly through the pubic symphysis. Intravenous and oral contrast was not utilized. Reconstructed coronal and sagittal images were obtained. Comparison: Prior CT abdomen and pelvis study of 09/10/20. Prior abdominal ultrasound exam performed earlier on the same day is also available. Findings: Heart is enlarged. AICD is present. Visualized lung bases show nothing acute. Small calcification is seen within the liver compatible with granulomatous change. No fluid is seen around the gallbladder on this exam. Spleen size is normal. Adrenal glands show no nodule. Pancreas shows no focal parenchymal abnormality. Gallbladder contains no calcified gallstones. Abdominal aorta shows atherosclerotic calcification which continues into the iliac vessels with no aneurysm. Kidneys show no abnormal calcifications. No retroperitoneal adenopathy or mesenteric abnormalities are seen. Appendix is seen which descends into a small right inguinal hernia. No appendiceal dilatation is seen. No pelvic mass or adenopathy is seen. There are surgical anastomotic sutures seen near the rectosigmoid junction. Bone window settings were reviewed which show severe disc space narrowing at L5-S1. Severe degenerative change is noted within both hips. Impression: 1. Stable cardiomegaly. 2. Other findings as noted above which are believed to be incidental. 3. Right inguinal hernia which contains a nondilated appendix. 4. Other findings believed to be incidental as noted above. Diagnostic code #2 I agree with preliminary report from [facility], finalized on 10/19/20, 12:50 AM CDT
[2020-10-19 12:12] VITALS: PULSE 96
[2020-10-19 12:21] VITALS: BP 127/88
== END 2020-10-19 13:30 | DRG 444 ==
LOC: JD.ED 20:13 → JD.ICU 10-19 00:44
PROVIDERS: ADMIT Internal Medicine; ATTEND Internal Medicine
DX: I11.0 Hypertensive heart disease with heart failure (principal); R10.11 Right upper quadrant pain; R11.2 Nausea with vomiting, unspecified; I50.9 Heart failure, unspecified; R74.02 Elevation of levels of lactic acid dehydrogenase [LDH]; R77.8 Other specified abnormalities of plasma proteins; K80.00 Calculus of gallbladder with acute cholecystitis without obstruction; I50.23 Acute on chronic systolic (congestive) heart failure; I13.0 Hypertensive heart and chronic kidney disease with heart failure and stage 1 through stage 4 chronic kidney disease, or unspecified chronic kidney disease; J44.9 Chronic obstructive pulmonary disease, unspecified; J43.9 Emphysema, unspecified; N18.2 Chronic kidney disease, stage 2 (mild); I44.7 Left bundle-branch block, unspecified; S62.652D Nondisplaced fracture of middle phalanx of right middle finger, subsequent encounter for fracture with routine healing; F41.9 Anxiety disorder, unspecified; E55.9 Vitamin D deficiency, unspecified; E78.00 Pure hypercholesterolemia, unspecified; R33.9 Retention of urine, unspecified; F17.210 Nicotine dependence, cigarettes, uncomplicated; Z20.822 Contact with and (suspected) exposure to COVID-19; Z95.810 Presence of automatic (implantable) cardiac defibrillator; Z91.013 Allergy to seafood; Z88.5 Allergy status to narcotic agent; Z79.899 Other long term (current) drug therapy; I25.2 Old myocardial infarction; Z90.49 Acquired absence of other specified parts of digestive tract; Z99.81 Dependence on supplemental oxygen
CPT/HCPCS: 36415; 71045; 74176; 76705; 80053; 83605 ×2; 83690; 83880; 84484; 85025; 85610; 87040 ×2; 87635; 93005; J1170 ×2; J2405; 80048; 93010; 96374; 96375; 96376; 99236; 99285; 99285-25; A9270-GY; J1940; U0002